=== PATIENT | male | born 1940 | race Caucasian/White ===

== ENCOUNTER 2016-02-20 13:27 | Inpatient (IN) | payer MEDICARE, MEDICAID ==
[2016-02-20] VITALS (31 sets, daily range): BP systolic 50–112; BP diastolic 30–82
[~2016-02-20] VITALS: Ht 162.6 cm; Wt 65.8 kg
[2016-02-20] MEDS ORDERED: Ipratropium 0.02% Inh Soln 2.5ml UD HHN ONE (13:30)
[2016-02-20] MEDS ORDERED: COLACE100 MG ORAL (13:39)
[2016-02-20] MEDS ORDERED: CIPRO500 MG PO (13:39)
[2016-02-20] MEDS ORDERED: FLOMAX0.4 MG ORAL (13:39)
[2016-02-20] MEDS ORDERED: ASPIRIN81 MG ORAL (13:39)
[2016-02-20] MEDS ORDERED: AMIODARONE HCL400 M1 ORAL (13:39)
[2016-02-20] MEDS ORDERED: ABILIFY10 MG ORAL (13:39)
[2016-02-20] MEDS ORDERED: ABILIFY2 MG ORAL (13:39)
[2016-02-20] MEDS ORDERED: HEPARIN SO5000 UNIT2 SUBQ (13:39)
[2016-02-20] MEDS ORDERED: ARANESP40 MCG/1 M SUBQ (13:39)
[2016-02-20] MEDS ORDERED: BISACODYL5 MG RECTAL (13:39)
[2016-02-20] MEDS ORDERED: Etomidate 40mg/20ml Inj IV ONE (13:45)
[2016-02-20] MEDS ORDERED: PRAVACHOL20 MG ORAL (13:45)
[2016-02-20] MEDS ORDERED: MELATONIN 3 MG1 EAC1 PO (13:45)
[2016-02-20] MEDS ORDERED: PROTONIX40 M2 PO (13:45)
[2016-02-20] MEDS ORDERED: TOPROL XL25 MG ORAL (13:45)
[2016-02-20] MEDS ORDERED: FUROSEMIDE80 M1 ORAL (13:45)
[2016-02-20] MEDS ORDERED: SENOKOT8.6 MG PO (13:45)
[2016-02-20] MEDS ORDERED: LIDOCAINE700 M1 TP (13:45)
[2016-02-20] MEDS ORDERED: TRAZODONE HCL150 MG ORAL (13:45)
[2016-02-20] MEDS ORDERED: HUMALOG100 UNIT/4 SUBQ (13:45)
[2016-02-20] MEDS ORDERED: NEPHRO-VITE RX1 EAC1 PO (13:45)
[2016-02-20] MEDS ORDERED: MIRALAX17 G2 ORAL (13:45)
[2016-02-20] MEDS ORDERED: NORCO 5-325 TA1 EAC1 ORAL (13:45)
[2016-02-20] MEDS ORDERED: LANOXIN125 MCG ORAL (13:45)
[2016-02-20 14:02] LABS: MEAN CORPUSCULAR HEMOGLOBIN 28.2 PG (27.0-31.0); MEAN CORPUSCULAR HGB CONC 28.9 G/DL (32.0-36.0); MEAN CORPUSCULAR VOLUME 98 FL (80-99); MEAN PLATELET VOLUME 6.9 FL (6.5-10.1); PLATELET COUNT 40 K/UL (150-450); RED BLOOD COUNT 3.96 M/UL (4.70-6.10); RED CELL DISTRIBUTION WIDTH 23.7 % (11.6-14.8); WHITE BLOOD COUNT 9.8 K/UL (4.8-10.8)
[2016-02-20 14:06] LABS: INR 1.3 (0.9-1.1); PROTHROMBIN TIME 13.7 SEC (9.30-11.50)
[2016-02-20 14:07] LABS: ALANINE AMINOTRANSFERASE 10 U/L (3-41); ALBUMIN/GLOBULIN RATIO 0.7 (1.0-2.7); ANION GAP 15 (5-15); ASPARTATE AMINO TRANSFERASE 28 U/L (5-40); CALCIUM 9.2 mg/dL (8.6-10.2); CARBON DIOXIDE 22 mEQ/L (20-30); CHLORIDE 100 mEQ/L (98-107); CREATININE 3.3 mg/dL (0.7-1.2); HEMOLYSIS 3; POTASSIUM 4.2 mEQ/L (3.4-4.9); SODIUM 137 mEQ/L (135-145); TOTAL PROTEIN 7.3 g/dL (6.6-8.7)
[2016-02-20 14:10] LABS: TROPONIN I < 0.30 ng/mL (<=0.30)
[2016-02-20] MEDS ORDERED: Levophed 4mg/4mL Inj IV ONE (14:13)
[2016-02-20 14:23] LABS: ANISOCYTOSIS 2+; BAND NEUTROPHILS % (MANUAL) 5 % (0-8); BASOPHILS % (MANUAL) 0 % (0-2); EOSINOPHILS % (MANUAL) 9 % (0-3); HYPOCHROMASIA 1+; LYMPHOCYTES % (MANUAL) 5 % (20-45); NEUTROPHILS % (MANUAL) 75 % (45-75); PLATELET ESTIMATE DECREASED; PLATELET MORPHOLOGY NORMAL; POLYCHROMASIA 1+; TOTAL CELLS COUNTED 100
[2016-02-20 14:24] LABS: MACROCYTES 1+
[2016-02-20 14:26] LABS: BURR CELLS 1+
[2016-02-20 14:30] LABS: BILIRUBIN,DIRECT 0.6 mg/dL (0.1-0.3)
--- NOTE | 2016-02-20 14:43 | Emergency Room Report ---
History of Present Illness General Chief Complaint: Dyspnea/Respdistress Source: Medical Record, EMS Present Illness HPI Patient sent from SNF for dyspnea. No treatment in the field. H/O dialysis, COPD, CHF/cardiomyopathy. Diabetic. Patient Full Code. Allergies: Coded Allergies: No Known Allergies (Unverified , 02/20/16) Patient History Limited by: medical condition Past Medical History: see triage record, old chart reviewed Past Surgical History: other - hip, knee Social History: Reports: smoking - prior Social History Narrative SNF Reviewed Nursing Documentation: PMH: Agreed, PSxH: Agreed Nursing Documentation-PMH Hx Cardiac Problems: Yes - CHF, CARDIOMYOPATHY Hx Hypertension: Yes Hx COPD: Yes Hx Dialysis: Yes Review of Systems All Other Systems: limited Physical Exam Vital Signs Date Time Temp Pulse Resp B/P Pulse Ox O2 Delivery O2 Flow Rate FiO2 02/20/16 13:20 98.2 78 24 106/62 90 Simple Mask 10.0 02/20/16 14:22 55 Sp02 EP Interpretation: reviewed, abnormal - low as interpreted by me General Appearance: Chronically Ill, Stupor Head: normocephalic Eyes: bilateral eye PERRL, bilateral eye lid inflammation, bilateral eye normal inspection ENT: moist mucus membranes Neck: supple Respiratory: respiratory distress, rales, rhonchi, wheezing, expiration, other - recent pacer L chest Cardiovascular #1: regular rate, rhythm, no murmur, JVD, edema - bilateral legs Cardiovascular #2: 2+ radial (R), 2+ femoral (R) Gastrointestinal: abnormal bowel sounds - decreased Genitourinary: normal inspection Musculoskeletal: swelling, other - DJD Neurologic: other - lethargic, moving all 4 Psychiatric: other - lethargy Skin: mottled Procedures Critical Care Time Critical Care Time Time: 45 min of bedside evaluation and treatment excludes procedures Procedures: CVP, intubation, EKG Reason for Critical Care: Hypotension, sepsis, metabolic acidosis, prevention of end organ injury, respiratory failure Course: the patient presented with AMS. I assessed ineffective TV and he was immediately intubated. His blood pressure was low and a CVP was started and pressors begun. He had evidence of increased venous pressures. Because of the increased pressures, there was bleeding from the EJ site. Pressure was applied and this was controlled - however, this took approximately 20 minutes at bedside. Antibiotics were initiated when CXR revealed a RLL infiltrate. Repeated evaluations were made as well as discussion with PMD. Vent settings were changed based on the ABG. Patient admitted to ICU. Consultations: PMD, RT, staff electronic warfare officer Alternative history: EMS Result: Patient was improved but critical Performed by: Dr. Mendoza Central Line Central Line : Consent: Emergent Central Line Lumen: triple Maximal Sterile Barrier Tech: yes cap, yes mask, yes sterile gown, yes sterile gloves, yes large sterile sheet, yes hand hygiene, yes chlorhexidine prep Central Line Postion: internal jugular (L), femoral (R) Complications: venous bleed with high pressures Central Line Post Position: sutured, good blood return, position confirmed w / CXR Attempts: Other - 2 Patient Tolerated: Well Complications: Other - venous bleed Progress Initially R femoral vein easily found, but due to some anatomic anomaly, unable to thread wire. EBL = 8 ml. R EJ cannulated with ease. Small hematoma, then after line inserted, bleeding from around line. Gelfoam and pressure dressing applied. Bleeding controlled. EBL = 15 ml. Intubation Intubation : Consent: Emergent Tube Size (cm): 7.5 Medications: Etomidate Breath Sounds after Intubation: equal Intubation Complications: no complications Post Intubation Xray: Yes Attempts: One Patient Tolerated: Well Complications: None Medical Decision Making Diagnostic Impression: Primary Impression: Respiratory failure Qualified Codes: J96.01 - Acute respiratory failure with hypoxia; J96.02 - Acute respiratory failure with hypercapnia Additional Impressions: Pneumonia Qualified Codes: J18.9 - Pneumonia, unspecified organism Pulmonary edema Qualified Codes: J81.0 - Acute pulmonary edema ESRD (end stage renal disease) on dialysis Hypotension Qualified Codes: I95.89 - Other hypotension Severe sepsis ER Course Dialysis patient presents with dyspnea. DDx: sepsis, COPD, pneumonia, pulmonary edema and possibly combination. Increasing lethargy and inadequate tidal volumes - patient intubated. Labs sent, EKG done. CXR after intubation and CVP. Patient complicated and critical. See critical care note. Elevated BNP and CHF on x-ray (with pneumonia). Unwise to give more fluids as central volume elevated. Antibiotics begun. Bleeding controlled at EJ/IJ site. INR prolonged and high central pressures. Discussed with Dr. Perez. Blood pressure better on Levophed. Adjust vent based on ABG. Improved but critical. Admitted to ICU. Laboratory Tests Test 02/20/16 13:37 White Blood Count 9.8 K/UL (4.8-10.8) Red Blood Count 3.96 M/UL (4.70-6.10) L Hemoglobin 11.2 G/DL (14.2-18.0) L Hematocrit 38.7 % (42.0-52.0) L Mean Corpuscular Volume 98 FL (80-99) Mean Corpuscular Hemoglobin 28.2 PG (27.0-31.0) Mean Corpuscular Hemoglobin Concent 28.9 G/DL (32.0-36.0) L Red Cell Distribution Width 23.7 % (11.6-14.8) H Platelet Count 40 K/UL (150-450) L Mean Platelet Volume 6.9 FL (6.5-10.1) Neutrophils (%) (Auto) % (45.0-75.0) Lymphocytes (%) (Auto) % (20.0-45.0) Monocytes (%) (Auto) % (1.0-10.0) Eosinophils (%) (Auto) % (0.0-3.0) Basophils (%) (Auto) % (0.0-2.0) Differential Total Cells Counted 100 Neutrophils % (Manual) 75 % (45-75) Lymphocytes % (Manual) 5 % (20-45) L Monocytes % (Manual) 6 % (1-10) Eosinophils % (Manual) 9 % (0-3) H Basophils % (Manual) 0 % (0-2) Band Neutrophils 5 % (0-8) Platelet Estimate Decreased L Platelet Morphology Normal Polychromasia 1+ Hypochromasia 1+ Anisocytosis 2+ Macrocytosis 1+ Christelle Cells 1+ Prothrombin Time 13.7 SEC (9.30-11.50) H Prothrombin Time INR 1.3 (0.9-1.1) H PTT 54 SEC (23-33) H Sodium Level 137 mEQ/L (135-145) Potassium Level 4.2 mEQ/L (3.4-4.9) Chloride Level 100 mEQ/L (98-107) Carbon Dioxide Level 22 mEQ/L (20-30) Anion Gap 15 (5-15) Blood Urea Nitrogen 27 mg/dL (7-23) H Creatinine 3.3 mg/dL (0.7-1.2) H Estimate Glomerular Filtration Rate mL/min (>60) Glucose Level 57 mg/dL (74-106) L Lactic Acid Level 1.30 mmol/L (0.66-2.22) Calcium Level 9.2 mg/dL (8.6-10.2) Total Bilirubin 1.3 mg/dL (0.0-1.2) H Direct Bilirubin 0.6 mg/dL (0.1-0.3) H Aspartate Amino Transferase (AST) 28 U/L (5-40) Alanine Aminotransferase (ALT) 10 U/L (3-41) Alkaline Phosphatase 164 U/L (40-129) H Total Creatine Kinase 23 U/L (38-174) L Troponin I < 0.30 ng/mL (<=0.30) Pro-B-Type Natriuretic Peptide 61717 pg/mL (0-125) H Total Protein 7.3 g/dL (6.6-8.7) Albumin 3.1 g/dL (3.5-5.2) L Globulin 4.2 g/dL Albumin/Globulin Ratio 0.7 (1.0-2.7) L EKG Diagnostic Results Rhythm: other - paced ST Segments: no acute changes Rhythm Strip Diag. Results EP Interpretation: yes Rhythm: no PVC's, no ectopy, other - paced Chest X-Ray Diagnostic Results EP Interpretation: Yes Findings: other - pneumonia, ET OK, IJ OK, vas cath, Number of Views: 1 Last Vital Signs Date Time Temp Pulse Resp B/P Pulse Ox O2 Delivery O2 Flow Rate FiO2 02/20/16 15:51 70 28 99 Mechanical Ventilator 45 02/20/16 15:50 112/82 02/20/16 14:00 98.0 02/20/16 13:20 10.0 Status: improved Disposition: ADMITTED INPATIENT Condition: Critical Referrals: JACKELIN JOSUE (PCP) Weston Mendoza M.D. Feb 20, 2016 14:43
[2016-02-20] MEDS ORDERED: Azithromycin 500 MG in NS 250 ML IVPB ONE (15:00)
[2016-02-20] MEDS: Albuterol ud Inhalation HHN SCH ×3 (15:02→17:00)
[2016-02-20] MEDS ORDERED: Vancomycin 1gm inj IVPB ONE (15:11)
[2016-02-20] MEDS ORDERED: Azithromycin Inj IV ONE (15:11)
[2016-02-20] MEDS ORDERED: Zosyn 3.375gm inj ONE (15:11)
[2016-02-20] MEDS ORDERED: Acetaminophen 650 MG SUPP RECTAL PRN ×2 (15:30)
[2016-02-20] MEDS ORDERED: Heparin 5000 units/ml inj SUBQ SCH (15:30)
[2016-02-20 16:28] LABS: APPEARANCE,URINE CLOUDY; KETONES,URINE 1+ (NEGATIVE); LEUKOCYTE ESTERASE ,URINE 3+ (NEGATIVE); NITRITE,URINE NEGATIVE (NEGATIVE); PH,URINE 6 (4.5-8.0); PROTEIN,URINE 4+ (NEGATIVE); UROBILINOGEN,URINE NORMAL MG/DL (0.0-1.0)
[2016-02-20 16:44] LABS: AMORPHOUS SEDIMENT,UR FEW /LPF; BACTERIA,URINE MANY /HPF; ICTOTEST NEGATIVE
[2016-02-20] MEDS ORDERED: DuoNeb 0.5-3(2.5)mg/3ml neb HHN SCH ×2 (17:00→18:00)
[2016-02-20] MEDS ORDERED: LORazepam Inj 2mg/ml 1ml IV PRN (17:30)
[2016-02-20] MEDS ORDERED: Haloperidol 5mg/ml Inj IM PRN (17:30)
[2016-02-20] MEDS: Norepinephrine Bitartrate 8 MG in D5W 500ml 500 ML IV SCH (18:04)
--- NOTE | 2016-02-20 19:26 | History and Physical ---
History of Present Illness General Date patient seen: Feb 20, 2016 Time patient seen: 17:30 Reason for Hospitalization: Dyspnea/Respdistress Present Illness HPI Pt is a 75 yo [place] M with PMH of ischemic CM (EF 15%), CAD, a fib, HTN, COPD, DM 2 , HLD, ESRD on HD 4x/w, PVD and TTP sent to ED for hypotension with SBP of 80s and acute de sat. In ED, SBP in 50s and pt started on pressors, and in hypoxic resp failure, hence intubated and tx to ICU. Allergies: Coded Allergies: No Known Allergies (Unverified , 02/20/16) Medication History Scheduled Amiodarone Hcl* (Amiodarone Hcl*), 200 MG ORAL BEDTIME, (Reported) Aripiprazole* (Abilify*), 2 MG ORAL BEDTIME, (Reported) Aripiprazole* (Abilify*), 10 MG ORAL DAILY, (Reported) Aspirin* (Aspirin*), 81 MG ORAL DAILY, (Reported) Bisacodyl* (Dulcolax*), 5 MG RECTAL DAILY, (Reported) Ciprofloxacin* (Cipro*), 250 MG PO BID, (Reported) Darbepoetin Eddie In Polysorbat (Aranesp), 40 MCG SUBQ ONCE A WEEK, (Reported) Digoxin* (Lanoxin*), 125 MCG ORAL DAILY, (Reported) Docusate Sodium* (Colace*), 100 MG ORAL DAILY, (Reported) Furosemide* (Lasix*), 80 MG ORAL DAILY, (Reported) Heparin Sod (Porcine) (Heparin Sodium*), 5,000 UNITS SUBQ EVERY 12 HOURS, ( Reported) Lidocaine (Lidocaine), 700 MG TP EVERY 12 HOURS, (Reported) Metoprolol Succinate* (Toprol Xl*), 25 MG ORAL DAILY, (Reported) Pantoprazole Sodium (Protonix), 40 MG PO DAILY, (Reported) Polyethylene Glycol 3350* (Miralax*), 17 GM ORAL DAILY, (Reported) Pravastatin Sod* (Pravachol*), 10 MG ORAL BEDTIME, (Reported) Tamsulosin HCl (Flomax), 0.4 MG ORAL DAILY, (Reported) Trazodone* (Trazodone*), 25 MG ORAL BEDTIME, (Reported) Vit B Cmplx 3/Fa/Vit C/Biotin (Nephro-Ang Rx Tablet), 1 EACH PO DAILY, ( Reported) Scheduled PRN Hydrocodone Bit/Acetaminophen 5-325* ([place] 5-325 Tablet*), 1 TAB ORAL Q4H PRN for For Pain, (Reported) Miscellaneous Medications Insulin Lispro (Humalog), 0 SUBQ, (Reported) Melatonin/Pyridoxine HCl (B6) (Melatonin 3 mg Tablet), 1 EACH PO, (Reported) Sennosides (Senokot), 8.6 MG PO, (Reported) Patient History Healthcare decision maker Resuscitation status Full Code Advanced Directive on File No Past Medical/Surgical History Past Medical/Surgical History: (1) CAD (coronary artery disease) (2) Ischemic cardiomyopathy (3) ESRD (end stage renal disease) on dialysis (4) Encephalopathy (5) Thrombocytopenia (6) PVD (peripheral vascular disease) (7) HLD (hyperlipidemia) (8) DM type 2 (diabetes mellitus, type 2) (9) COPD (chronic obstructive pulmonary disease) (10) HTN (hypertension) (11) A-fib (12) Presence of biventricular AICD Family History Family History: Patient reports no known family medical history. Social History Social History: (1) No significant social history Review of Systems All Other Systems: negative except mentioned in HPI - pt unable to perform ros 2/2 intubation Physical Exam General Appearance: no apparent distress, alert, lethargic - but arousable; stating he wants the breathing tube out, cachetic Lines, tubes and drains: central line - R EJ, dialysis access - R cath HEENT: normocephalic, atraumatic, anicteric, PERRL, EOMI, no JVD, other - dry mm Neck: non-tender, supple Respiratory/Chest: expiratory wheezing, on vent Cardiovascular/Chest: normal peripheral pulses, normal rate, regular rhythm Abdomen: normal bowel sounds, non tender, soft, no mass Genitourinary/Rectal: leon Extremities: non-tender, normal inspection Skin Exam: warm/dry, other - ecchymoses of LLQ Neurologic: brim plater II-XII grossly normal, no motor/sensory deficits, alert, responsive Musculoskeletal: normal muscle bulk Last 24 Hour Vital Signs Date Time Temp Pulse Resp B/P Pulse Ox O2 Delivery O2 Flow Rate FiO2 02/20/16 19:00 71 20 90/56 100 Mechanical Ventilator 45 02/20/16 18:50 70 26 40 02/20/16 18:49 70 26 100 Mechanical Ventilator 40 02/20/16 18:49 40 02/20/16 18:45 70 20 89/51 100 Mechanical Ventilator 45 02/20/16 18:30 70 22 83/51 98 Mechanical Ventilator 45 17 18:15 70 21 88/52 98 Mechanical Ventilator 45 02/20/16 18:04 92/54 02/20/16 18:00 72 20 84/52 100 Mechanical Ventilator 45 02/20/16 17:47 70 21 100 Mechanical Ventilator 40 02/20/16 17:45 71 25 99 Mechanical Ventilator 40 02/20/16 17:45 72 22 84/52 100 Mechanical Ventilator 45 02/20/16 17:45 71 25 99 Mechanical Ventilator 40 02/20/16 17:30 71 20 100/58 100 Mechanical Ventilator 45 02/20/16 17:15 71 25 40 02/20/16 17:15 70 20 98/61 98 Mechanical Ventilator 45 02/20/16 17:00 71 20 97/60 98 Mechanical Ventilator 45 02/20/16 16:30 45 02/20/16 16:30 82 02/20/16 16:30 97.8 71 20 102/60 98 Mechanical Ventilator 45 02/20/16 16:15 70 22 96/61 98 Mechanical Ventilator 45 02/20/16 15:51 70 28 99 Mechanical Ventilator 45 02/20/16 15:50 70 20 100 Mechanical Ventilator 02/20/16 15:50 70 26 112/82 97 Mechanical Ventilator 45 02/20/16 15:50 45 02/20/16 15:48 70 21 100 Mechanical Ventilator 55 02/20/16 15:19 62/21 02/20/16 15:15 70 28 45 02/20/16 14:22 21 55 02/20/16 14:21 70 16 52/30 97 Mechanical Ventilator 02/20/16 14:00 98.0 66 16 50/40 98 Mechanical Ventilator 02/20/16 13:35 62 10 02/20/16 13:20 98.2 78 24 106/62 90 Simple Mask 10.0 Laboratory Tests Test 02/20/16 13:37 02/20/16 13:45 02/20/16 15:30 White Blood Count 9.8 K/UL (4.8-10.8) Red Blood Count 3.96 M/UL (4.70-6.10) L Hemoglobin 11.2 G/DL (14.2-18.0) L Hematocrit 38.7 % (42.0-52.0) L Mean Corpuscular Volume 98 FL (80-99) Mean Corpuscular Hemoglobin 28.2 PG (27.0-31.0) Mean Corpuscular Hemoglobin Concent 28.9 G/DL (32.0-36.0) L Red Cell Distribution Width 23.7 % (11.6-14.8) H Platelet Count 40 K/UL (150-450) L Mean Platelet Volume 6.9 FL (6.5-10.1) Neutrophils (%) (Auto) % (45.0-75.0) Lymphocytes (%) (Auto) % (20.0-45.0) Monocytes (%) (Auto) % (1.0-10.0) Eosinophils (%) (Auto) % (0.0-3.0) Basophils (%) (Auto) % (0.0-2.0) Differential Total Cells Counted 100 Neutrophils % (Manual) 75 % (45-75) Lymphocytes % (Manual) 5 % (20-45) L Monocytes % (Manual) 6 % (1-10) Eosinophils % (Manual) 9 % (0-3) H Basophils % (Manual) 0 % (0-2) Band Neutrophils 5 % (0-8) Platelet Estimate Decreased L Platelet Morphology Normal Polychromasia 1+ Hypochromasia 1+ Anisocytosis 2+ Macrocytosis 1+ Benedict Cells 1+ Prothrombin Time 13.7 SEC (9.30-11.50) H Prothromb Time International Ratio 1.3 (0.9-1.1) H Activated Partial Thromboplast Time 54 SEC (23-33) H Sodium Level 137 mEQ/L (135-145) Potassium Level 4.2 mEQ/L (3.4-4.9) Chloride Level 100 mEQ/L (98-107) Carbon Dioxide Level 22 mEQ/L (20-30) Anion Gap 15 (5-15) Blood Urea Nitrogen 27 mg/dL (7-23) H Creatinine 3.3 mg/dL (0.7-1.2) H Estimat Glomerular Filtration Rate mL/min (>60) Glucose Level 57 mg/dL (74-106) L Lactic Acid Level 1.30 mmol/L (0.66-2.22) Calcium Level 9.2 mg/dL (8.6-10.2) Total Bilirubin 1.3 mg/dL (0.0-1.2) H Direct Bilirubin 0.6 mg/dL (0.1-0.3) H Aspartate Amino Transf (AST/SGOT) 28 U/L (5-40) Alanine Aminotransferase (ALT/SGPT) 10 U/L (3-41) Alkaline Phosphatase 164 U/L (40-129) H Total Creatine Kinase 23 U/L (38-174) L Troponin I < 0.30 ng/mL (<=0.30) Pro-B-Type Natriuretic Peptide 89446 pg/mL (0-125) H Total Protein 7.3 g/dL (6.6-8.7) Albumin 3.1 g/dL (3.5-5.2) L Globulin 4.2 g/dL Albumin/Globulin Ratio 0.7 (1.0-2.7) L D-Dimer 2599 ng/mL (<500) H Digoxin Level 3.3 ng/mL (0.5-2.0) *H Urine Color Brown Urine Appearance Cloudy Urine pH 6 (4.5-8.0) Urine Specific [place] 1.015 (1.005-1.035) Urine Protein 4+ (NEGATIVE) H Urine Glucose (UA) Negative (NEGATIVE) Urine Ketones 1+ (NEGATIVE) H Urine Occult Blood 5+ (NEGATIVE) H Urine Nitrite Negative (NEGATIVE) Urine Bilirubin 1+ (NEGATIVE) H Urine Ictotest Negative Urine Urobilinogen Normal MG/DL (0.0-1.0) Urine Leukocyte Esterase 3+ (NEGATIVE) H Urine RBC 5-10 /HPF (0 - 0) H Urine WBC 10-15 /HPF (0 - 0) H Urine Squamous Epithelial Cells None /LPF (NONE/OCC) Urine Amorphous Sediment Few /LPF (NONE) H Urine Bacteria Many /HPF (NONE) H Height (Feet): 5 Height (Inches): 4.00 Weight (Pounds): 145 Medications Current Medications Medications (Trade) Dose Ordered Sig/Med Route PRN Reason Start Time Stop Time Status Last Admin Dose Admin Acetaminophen 650 mg 650 mg Q4H PRN RECTAL Mild Pain (Scale 1-3)/FEVER 02/20/16 15:30 03/21/16 15:29 Albumin Human (Albumisol) 100 ml @ 200 mls/hr PRN PRN IV sbp<90 during hd 02/21/16 17:45 03/22/16 17:44 Albuterol/ Ipratropium (DuoNeb 0.5-3(2.5)mg/3ml) 3 ml EVERY 4 HOURS HHN 02/20/16 17:00 02/25/16 16:59 02/20/16 17:15 Albuterol/ Ipratropium (DuoNeb 0.5-3(2.5)mg/3ml) 3 ml Q4HR N 02/20/16 18:00 02/25/16 17:59 02/20/16 18:48 Amiodarone HCl (Cordarone) 200 mg BEDTIME ORAL 02/20/16 21:00 03/21/16 20:59 Aripiprazole (Abilify) 2 mg BEDTIME ORAL 02/20/16 21:00 03/21/16 20:59 Aspirin (ASA) 81 mg DAILY ORAL 02/21/16 09:00 03/22/16 08:59 Azithromycin 500 mg/Sodium Chloride 250 ml @ 250 mls/hr Q24H IV 02/21/16 15:00 02/27/16 14:59 Dextrose (Dextrose 50%) STAT PRN IV Hypoglycemia 02/20/16 17:15 03/21/16 17:14 Digoxin (Lanoxin) 0.125 mg DAILY ORAL 02/21/16 09:00 03/22/16 08:59 Docusate Sodium (Colace) 100 mg DAILY ORAL 02/21/16 09:00 03/22/16 08:59 Haloperidol Lactate 2 mg 2 mg Q6H PRN IM Agitation 02/20/16 17:30 03/21/16 17:29 Heparin Sodium (Porcine) (Heparin Sod 1000 units/ml 10ml) 2,000 unit ONCE IV 02/21/16 18:00 02/26/16 17:59 Lidocaine (Lidoderm 5% PATCH) 1 patch EVERY 12 HOURS TDERMAL 02/20/16 21:00 03/21/16 20:59 Lorazepam (Ativan 2mg/ml 1ml) 0.5 mg Q4H PRN IV For Anxiety 02/20/16 17:30 02/27/16 17:29 Norepinephrine Bitartrate/ Dextrose (Levophed/D5W 500ml) 508 ml @ 0 mls/hr Q24H IV 02/20/16 17:00 03/21/16 16:59 02/20/16 18:04 Piperacillin Sod/ Tazobactam Sod 3.375 gm/Sodium Chloride 100 ml @ 25 mls/hr Q12H IVPB 02/21/16 15:00 02/28/16 14:59 Polyethylene Glycol (Miralax) 17 gm DAILY ORAL 02/21/16 09:00 03/22/16 08:59 Sennosides (Senokot) 8.6 mg DAILY ORAL 02/21/16 09:00 03/22/16 08:59 Trazodone HCl (Desyrel) 25 mg BEDTIME ORAL 02/20/16 21:00 03/21/16 20:59 Vancomycin HCl (Vanco rx to dose) 1 ea DAILY PRN MISC Per rx protocol 02/20/16 17:30 03/21/16 17:29 Assessment/Plan Problem List: (1) Pulmonary edema ICD Codes: J81.1 - Chronic pulmonary edema SNOMED: 14492075 (2) Hypotension ICD Codes: I95.9 - Hypotension, unspecified SNOMED: 42680651 (3) Pneumonia ICD Codes: J18.9 - Pneumonia, unspecified organism SNOMED: 865029343 (4) ESRD (end stage renal disease) on dialysis ICD Codes: N18.6 - End stage renal disease; Z99.2 - Dependence on renal dialysis SNOMED: 847899489 (5) Respiratory failure ICD Codes: J96.90 - Respiratory failure, unspecified, unspecified whether with hypoxia or hypercapnia SNOMED: 165502756 (6) Hypoxia ICD Codes: R09.02 - Hypoxemia SNOMED: 77396599, 482457280 (7) CAD (coronary artery disease) ICD Codes: I25.10 - Atherosclerotic heart disease of [place] coronary artery without angina pectoris SNOMED: 90817044 (8) Ischemic cardiomyopathy ICD Codes: I25.5 - Ischemic cardiomyopathy SNOMED: 511461098 (9) COPD (chronic obstructive pulmonary disease) ICD Codes: J44.9 - Chronic obstructive pulmonary disease, unspecified SNOMED: 14898642 (10) Thrombocytopenia ICD Codes: D69.6 - Thrombocytopenia, unspecified SNOMED: 688384540 (11) Encephalopathy ICD Codes: G93.40 - Encephalopathy, unspecified SNOMED: 79167014, 732072667 (12) PVD (peripheral vascular disease) ICD Codes: I73.9 - Peripheral vascular disease, unspecified SNOMED: 330877880 (13) A-fib ICD Codes: I48.91 - Unspecified atrial fibrillation SNOMED: 31215864 (14) HTN (hypertension) ICD Codes: I10 - Essential (primary) hypertension SNOMED: 64720569 (15) DM type 2 (diabetes mellitus, type 2) ICD Codes: E11.9 - Type 2 diabetes mellitus without complications SNOMED: 71248563 (16) HLD (hyperlipidemia) ICD Codes: E78.5 - Hyperlipidemia, unspecified SNOMED: 48846934 (17) Septic shock ICD Codes: A41.9 - Sepsis, unspecified organism; R65.21 - Severe sepsis with septic shock SNOMED: 35304276 Status: progressing Assessment/Plan Pt admitted to ICU intubated for ventilatory support for acute hypoxic respiratory failure. Dr. Marin of pulm conslted cont atc duo nebs Zosyn, vanc and azithromycin, HCAP v CAP Dr. Mcnamara of Nephrology c/s'd; resume HD tomorrow cont home meds hold eliquis and pharm dvt ppx; scd only f/u DIC panel Bran Gomez M.D. Feb 20, 2016 19:26
--- NOTE | 2016-02-20 20:53 | Pulmonolgy Critical Care Note ---
Critical Care - Asmt/Plan Problems: (1) Severe sepsis (2) Hypotension (3) Pulmonary edema (4) Pneumonia (5) ESRD (end stage renal disease) on dialysis (6) DM type 2 (diabetes mellitus, type 2) (7) HTN (hypertension) (8) HLD (hyperlipidemia) (9) Hypoxia (10) A-fib (11) PVD (peripheral vascular disease) (12) Encephalopathy (13) Thrombocytopenia (14) COPD (chronic obstructive pulmonary disease) (15) Ischemic cardiomyopathy (16) CAD (coronary artery disease) Respiratory: monitor respiratory rate, adjust FIO2 - Titrate down to keep SaO2 ~ 90%, CXR, weaning trial - once hemodynamically stable, other - Optimize pulmonary hygiene/mobilzie as tolerated, RTC and PRN DUOnebs Cardiac: continue pressors - titrate down to MAP > 60, continue to monitor HR/ BP, other - F/U repeat ECG and troponin Renal: F/U I&O, check electrolytes, other - HD in am with UF as tolerated Infectious Disease: check cultures - F/U BCx x 2 and sputum Cx, continue antibiotics - Vanco/Zosyn/Azithro (D1) Gastrointestinal: other - Dietary evaluation for TF's Endocrine: continue sliding scale insulin Hematologic: monitor H/H, other - F/U duplex bLE, if negative place SCD's, consider heme eval for thrombocytopenia. 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 Discussed with: nurses, family member, other - Review of [facility] records Critical Care - Objective Last 24 Hour Vital Signs Date Time Temp Pulse Resp B/P Pulse Ox O2 Delivery O2 Flow Rate FiO2 02/20/16 20:15 71 20 90/51 98 Mechanical Ventilator 45 02/20/16 20:00 97.4 70 21 91/56 100 Mechanical Ventilator 45 02/20/16 19:45 71 21 92/54 100 Mechanical Ventilator 45 02/20/16 19:30 71 22 98/55 100 Mechanical Ventilator 45 02/20/16 19:15 70 20 94/56 97 Mechanical Ventilator 45 02/20/16 19:00 71 20 90/56 100 Mechanical Ventilator 45 02/20/16 18:50 70 26 40 02/20/16 18:49 70 26 100 Mechanical Ventilator 40 02/20/16 18:49 40 02/20/16 18:45 70 20 89/51 100 Mechanical Ventilator 45 02/20/16 18:30 70 22 83/51 98 Mechanical Ventilator 45 02/20/16 18:15 70 21 88/52 98 Mechanical Ventilator 45 02/20/16 18:04 92/54 02/20/16 18:00 72 20 84/52 100 Mechanical Ventilator 45 02/20/16 17:47 70 21 100 Mechanical Ventilator 40 02/20/16 17:45 71 25 99 Mechanical Ventilator 40 02/20/16 17:45 72 22 84/52 100 Mechanical Ventilator 45 02/20/16 17:45 71 25 99 Mechanical Ventilator 40 02/20/16 17:30 71 20 100/58 100 Mechanical Ventilator 45 02/20/16 17:15 71 25 40 02/20/16 17:15 70 20 98/61 98 Mechanical Ventilator 45 02/20/16 17:00 71 20 97/60 98 Mechanical Ventilator 45 02/20/16 16:30 45 02/20/16 16:30 82 02/20/16 16:30 97.8 71 20 102/60 98 Mechanical Ventilator 45 02/20/16 16:15 70 22 96/61 98 Mechanical Ventilator 45 02/20/16 15:51 70 28 99 Mechanical Ventilator 45 02/20/16 15:50 70 20 100 Mechanical Ventilator 02/20/16 15:50 70 26 112/82 97 Mechanical Ventilator 45 02/20/16 15:50 45 02/20/16 15:48 70 21 100 Mechanical Ventilator 55 02/20/16 15:19 62/21 02/20/16 15:15 70 28 45 02/20/16 14:22 21 55 02/20/16 14:21 70 16 52/30 97 Mechanical Ventilator 02/20/16 14:00 98.0 66 16 50/40 98 Mechanical Ventilator 02/20/16 13:35 62 10 02/20/16 13:20 98.2 78 24 106/62 90 Simple Mask 10.0 Status: sedated, other - intubated, elderly male Condition: critical HEENT: atraumatic, normocephalic Neck: other - JVP to AOM, R IJ CVC with oozing Lungs: rales - at bases, other - R CW tunneled cath Heart: HR/BP unstable - on 3 mcg NE Abdomen: soft, non-tender, active bowel sounds Extremities: edema - 3+ bLE Decubiti: location - sacral , stage - 2 Objective: 02/05/16 CT CAP @ [facility]: 1. Left anterior chest wall hematoma, partially obscured by metallic artifact from adjacent pacemaker. 2. Mild to moderate cardiomegaly with moderate right pleural effusion and pulmonary vascular congestion. 3. Mild splenomegaly with a couple of low-density lesions in the spleen the largest likely a cyst. 4. Gallstones. 5. Small ascites and diffuse anasarca. 6. 13 mm hyperdense lesion appears to washout on the delayed images and is suspicious for a small renal cell carcinoma. This was slightly smaller at 8 mm on the study of 07/06/2011 and more hypodense and therefore appears to be enhancing. 7. 3 cm infrarenal abdominal aortic aneurysm as well as left iliac artery aneurysmal dilatation. 12/15/15 TTE @ [facility]: Conclusions: 1. VERY SEVERE left ventricular systolic dysfunction. LV Ejection Fraction is 14 %. Severe diastolic dysfunction. Tissue Doppler/Mitral Doppler indices are consistent with restrictive physiology with markedly elevated left atrial pressures at rest. 2. Total wall motion score is 2.47. There is dyskinesis of the apical cap. There is dyskinesis of the apical septal wall. There is akinesis of the mid to apical inferior wall. There is akinesis of the mid anteroseptal to septal wall. The remaining left ventricular segments demonstrate hypokinesis. 3. Moderately depressed right ventricular systolic function. 4. There is moderate tricuspid regurgitation. 5. The inferior vena cava demonstrates no inspiratory collapse, consistent with significantly elevated right atrial pressure (>15 mmHg). 6. Estimated PA Pressure is 63.0 mmHg. PA systolic pressure is consistent with severe pulmonary hypertension. Accucheck: 92 Blood Sugars: BS controlled Critical Care - Subjective ROS Limited/Unobtainable: Yes ICU Day: 1 Intubation Day: 1 Interval Events: 75 M NHR h/o ESRD on HD, CHF S/P AICD, COPD, thrombocytopenia BIB EMS for SNF with RD, hypotensive and started on pressors, CXR with ? RLL infiltrate, PVC and exam with elevated filling pressure and CHF. Patient intubated in ED, started on BSAbx, CVC placed and transferred to ICU. He is on NE 3 mcg and afebrile, he is anuric, he has thin white secretions, awake and follows commands. HD has been ordered for the am. [facility] records reviewed. Condition: critical IV Access: central - R IJ CVC and R CW tunneled cath for HD EKG Rhythm: V-Paced FI02: 45 Vent Support Breath Rate: 20 Vent Support Mode: AC Vent Tidal Volume: 550 Sputum Amount: Moderate PEEP: 5.0 PIP: 27 Secretions: THIN WHITE Fluids: N/A Drips: NE @ 3 mcg/min Subjective: Unable to provide any history CXR: Per report ? RLL infiltrate and PVC ET-Tube: 7.5 ET Position: 24 Labs: Laboratory Tests Test 02/20/16 13:37 02/20/16 13:45 02/20/16 15:30 White Blood Count 9.8 K/UL (4.8-10.8) Red Blood Count 3.96 M/UL (4.70-6.10) L Hemoglobin 11.2 G/DL (14.2-18.0) L Hematocrit 38.7 % (42.0-52.0) L Mean Corpuscular Volume 98 FL (80-99) Mean Corpuscular Hemoglobin 28.2 PG (27.0-31.0) Mean Corpuscular Hemoglobin Concent 28.9 G/DL (32.0-36.0) L Red Cell Distribution Width 23.7 % (11.6-14.8) H Platelet Count 40 K/UL (150-450) L Mean Platelet Volume 6.9 FL (6.5-10.1) Neutrophils (%) (Auto) % (45.0-75.0) Lymphocytes (%) (Auto) % (20.0-45.0) Monocytes (%) (Auto) % (1.0-10.0) Eosinophils (%) (Auto) % (0.0-3.0) Basophils (%) (Auto) % (0.0-2.0) Differential Total Cells Counted 100 Neutrophils % (Manual) 75 % (45-75) Lymphocytes % (Manual) 5 % (20-45) L Monocytes % (Manual) 6 % (1-10) Eosinophils % (Manual) 9 % (0-3) H Basophils % (Manual) 0 % (0-2) Band Neutrophils 5 % (0-8) Platelet Estimate Decreased L Platelet Morphology Normal Polychromasia 1+ Hypochromasia 1+ Anisocytosis 2+ Macrocytosis 1+ Christelle Cells 1+ Prothrombin Time 13.7 SEC (9.30-11.50) H Prothromb Time International Ratio 1.3 (0.9-1.1) H Activated Partial Thromboplast Time 54 SEC (23-33) H Sodium Level 137 mEQ/L (135-145) Potassium Level 4.2 mEQ/L (3.4-4.9) Chloride Level 100 mEQ/L (98-107) Carbon Dioxide Level 22 mEQ/L (20-30) Anion Gap 15 (5-15) Blood Urea Nitrogen 27 mg/dL (7-23) H Creatinine 3.3 mg/dL (0.7-1.2) H Estimat Glomerular Filtration Rate mL/min (>60) Glucose Level 57 mg/dL (74-106) L Lactic Acid Level 1.30 mmol/L (0.66-2.22) Calcium Level 9.2 mg/dL (8.6-10.2) Total Bilirubin 1.3 mg/dL (0.0-1.2) H Direct Bilirubin 0.6 mg/dL (0.1-0.3) H Aspartate Amino Transf (AST/SGOT) 28 U/L (5-40) Alanine Aminotransferase (ALT/SGPT) 10 U/L (3-41) Alkaline Phosphatase 164 U/L (40-129) H Total Creatine Kinase 23 U/L (38-174) L Troponin I < 0.30 ng/mL (<=0.30) Pro-B-Type Natriuretic Peptide 55137 pg/mL (0-125) H Total Protein 7.3 g/dL (6.6-8.7) Albumin 3.1 g/dL (3.5-5.2) L Globulin 4.2 g/dL Albumin/Globulin Ratio 0.7 (1.0-2.7) L D-Dimer 2599 ng/mL (<500) H Digoxin Level 3.3 ng/mL (0.5-2.0) *H Urine Color Brown Urine Appearance Cloudy Urine pH 6 (4.5-8.0) Urine Specific [place] 1.015 (1.005-1.035) Urine Protein 4+ (NEGATIVE) H Urine Glucose (UA) Negative (NEGATIVE) Urine Ketones 1+ (NEGATIVE) H Urine Occult Blood 5+ (NEGATIVE) H Urine Nitrite Negative (NEGATIVE) Urine Bilirubin 1+ (NEGATIVE) H Urine Ictotest Negative Urine Urobilinogen Normal MG/DL (0.0-1.0) Urine Leukocyte Esterase 3+ (NEGATIVE) H Urine RBC 5-10 /HPF (0 - 0) H Urine WBC 10-15 /HPF (0 - 0) H Urine Squamous Epithelial Cells None /LPF (NONE/OCC) Urine Amorphous Sediment Few /LPF (NONE) H Urine Bacteria Many /HPF (NONE) H EMMETT MAURER M.D. Feb 20, 2016 20:53
[2016-02-20] MEDS ORDERED: NovoLOG Insulin Flexpen SUBQ SCH (21:00)
[2016-02-20] MEDS ORDERED: ARIPiprazole 2mg tab ORAL SCH (21:00)
[2016-02-20] MEDS: TraZODone HCl 25 mg tablet ORAL SCH (21:09)
[2016-02-20] MEDS: Amiodarone 200mg tab ORAL SCH (21:10)
[2016-02-20] MEDS: Pantoprazole Inj IVP SCH (21:10)
[2016-02-20] MEDS: DuoNeb 0.5-3(2.5)mg/3ml neb HHN SCH (23:24)
[2016-02-21] VITALS (96 sets, daily range): BP systolic 68–126; BP diastolic 29–78
--- NOTE | 2016-02-21 00:08 | Consultation ---
DATE OF CONSULTATION: 02/20/2016 NEPHROLOGY CONSULTATION REFERRING PHYSICIAN: Charlene Barnard M.D. REASON FOR CONSULTATION: End-stage renal disease, shock. HISTORY OF PRESENT ILLNESS: The patient has end-stage renal disease, on dialysis, cardiomyopathy with an ejection fraction about 15%, atrial fibrillation, COPD and cirrhosis. He was brought into the emergency room in respiratory distress and was intubated. The patient has been seen by myself multiple times in the past. He is now hypotensive on Levophed and intubated, but awake. He was seen in the emergency room and thought to have pneumonia and possible CHF and was started on treatment for sepsis. He is also on Levophed. PAST SURGICAL HISTORY: A biventricular pacemaker, right hip fracture, knee surgery, AICD, bilateral hip replacement, total knee replacement on the right, venous bypass of the right leg and a plastic surgery. MEDICATIONS: From the F are on the chart and were reviewed. ALLERGIES: Glipizide. HABITS: He is a former heavy smoker and a moderate alcohol drinker. REVIEW OF SYSTEMS: The patient is unable to give system review at this time. PHYSICAL EXAMINATION: GENERAL: The patient is lying in bed in the ICU. VITAL SIGNS: He has a pulse is 70, respirations 28, and pulse oximetry 99%, he is on the ventilator, blood pressure 62/21 and repeat 112/82. HEENT: He is orally intubated. Oral mucosa is moist. NECK: No adenopathy. He has a dressing from an IJ catheter. CHEST: He has a dialysis catheter in place. LUNGS: Distant breath sounds. I do not hear any rales or rhonchi. HEART: Rhythm is regular. I hear no murmur. ABDOMEN: Soft. I am unable to feel liver or spleen. There is questionable minimal ascites. EXTREMITIES: There is 1+ edema. There are old surgical scars from orthopedic surgery. NEUROLOGIC: The patient is awake and alert. Moving around all extremities. PERTINENT LABORATORY AND DIAGNOSTIC DATA: He has white count 9.8 and hemoglobin 11.2. Sodium 137, potassium 4.2, BUN 27, creatinine 3.3, and glucose 57. BNP 3926. Albumin was 3.1. Chest x-ray is not on the chart, but reportedly shows pneumonia and congestive heart failure. IMPRESSION: 1. End-stage renal disease. 2. Shock, likely due to cardiomyopathy and possible sepsis and septic shock. Source of sepsis could be urine or lung, most likely there also could be spontaneous bacterial peritonitis or other causes. 3. Chronic obstructive pulmonary disease. 4. History of cirrhosis. 5. Peripheral vascular disease. 6. History of mitral regurgitation. 7. History of prior gastrointestinal bleeding. 8. Ischemic cardiomyopathy. 9. Methicillin-resistant Staphylococcus aureus colonized. PLAN: The patient will be watched closely in view of his comorbidities. At this time, he does not need dialysis and we will try to stabilize his blood pressure, clinical status prior to initiating hemodialysis. His condition is gravely ill. His records from [facility] are reviewed and attached to the chart. Thank you so much for allowing me to participate in the care of this patient. Edwin Mcnamara M.D. DR: JULIANA JOB#: [id number] CC:
[2016-02-21 02:54] LABS: ABG PCO2 45.4 mmHg (35.0-45.0)
[2016-02-21 02:55] LABS: ABG ALLEN TEST POSITIVE
[2016-02-21] MEDS: DuoNeb 0.5-3(2.5)mg/3ml neb HHN SCH ×6 (03:00→22:53)
[2016-02-21 05:57] LABS: MEAN CORPUSCULAR HEMOGLOBIN 28.6 PG (27.0-31.0); MEAN CORPUSCULAR HGB CONC 30.2 G/DL (32.0-36.0); MEAN CORPUSCULAR VOLUME 95 FL (80-99); MEAN PLATELET VOLUME 5.1 FL (6.5-10.1); PLATELET COUNT 38 K/UL (150-450); RED BLOOD COUNT 3.71 M/UL (4.70-6.10); RED CELL DISTRIBUTION WIDTH 23.6 % (11.6-14.8); WHITE BLOOD COUNT 11.4 K/UL (4.8-10.8)
[2016-02-21] MEDS: NovoLOG Insulin Flexpen SUBQ SCH ×4 (06:00→17:46)
[2016-02-21 06:11] LABS: INR 1.5 (0.9-1.1); PROTHROMBIN TIME 15.1 SEC (9.30-11.50)
[2016-02-21 06:18] LABS: ANION GAP 18 (5-15); CALCIUM 8.7 mg/dL (8.6-10.2); CARBON DIOXIDE 19 mEQ/L (20-30); CHLORIDE 97 mEQ/L (98-107); CREATININE 3.5 mg/dL (0.7-1.2); HEMOLYSIS 8; POTASSIUM 3.9 mEQ/L (3.4-4.9); SODIUM 134 mEQ/L (135-145)
[2016-02-21 06:27] LABS: TROPONIN I < 0.30 ng/mL (<=0.30)
[2016-02-21 08:42] LABS: ANISOCYTOSIS 2+; BAND NEUTROPHILS % (MANUAL) 0 % (0-8); BASOPHILS % (MANUAL) 0 % (0-2); EOSINOPHILS % (MANUAL) 12 % (0-3); HYPOCHROMASIA 1+; LYMPHOCYTES % (MANUAL) 6 % (20-45); NEUTROPHILS % (MANUAL) 77 % (45-75); PLATELET ESTIMATE DECREASED; PLATELET MORPHOLOGY NORMAL; TOTAL CELLS COUNTED 100
[2016-02-21 08:43] LABS: POLYCHROMASIA OCCASIONAL
[2016-02-21] MEDS: Aspirin Baby 81mg ORAL SCH (09:00)
[2016-02-21] MEDS ORDERED: Digoxin 0.125mg tab ORAL SCH (09:00)
[2016-02-21] MEDS: Norepinephrine Bitartrate 8 MG in D5W 500ml 500 ML IV SCH ×2 (09:17→17:51)
[2016-02-21 10:09] LABS: ABG PCO2 39.8 mmHg (35.0-45.0)
[2016-02-21 10:10] LABS: ABG ALLEN TEST POSITIVE; ABG BASE EXCESS -2.9
[2016-02-21] MEDS: Pantoprazole Inj IVP SCH ×2 (10:35→20:47)
[2016-02-21] MEDS: Miralax 17gm pkt ORAL SCH (10:35)
[2016-02-21] MEDS: Docusate 100mg cap ORAL SCH (10:35)
--- NOTE | 2016-02-21 12:11 | Wound Care Consultation ---
Wound Assessment Wound Assessment #1: Wound Number: #1 Wound Present on Admission: Yes New Wound: No Status Change of Wound: No Wound Location Body Site Modif: mid Wound Location Body Site: sacral Wound Type: pressure ulcer Luciano Test: Does not Luciano Pressure Ulcer Stage: III Wound Thickness: Full Thickness Wound Length: 3.0 Wound Width: 3.0 Wound Depth: 0.3 Percent of Wound Raiford/Red: 80 Percent of Wound Bed Yellow/Wh: 20 Wound Drainage Description: Serosanguineous Wound Drainage Amount: Scant Wound Drainage Odor: None/Absent Tissue Surrounding Wound: Macerated Wound General Appearance: Reddened Wound Assessment #2: Wound Number: #2 Wound Present on Admission: Yes New Wound: No Status Change of Wound: No Wound Location Body Site Modif: right Wound Location Body Site: heel Wound Type: pressure ulcer Luciano Test: Does not Luciano Pressure Ulcer Stage: deep tissue injury Wound Thickness: Full Thickness Wound Length: 4.0 Wound Width: 4.0 Wound Depth: utd Percent of Wound Purple/Maroon: 100 Wound Drainage Amount: None Wound Drainage Odor: None/Absent Tissue Surrounding Wound: Erythemic Wound General Appearance: Reddened Wound Assessment #3: Wound Number: #3 Wound Present on Admission: Yes New Wound: No Status Change of Wound: No Wound Location Body Site Modif: left Wound Location Body Site: heel Wound Type: pressure ulcer Luciano Test: Does not Luciano Pressure Ulcer Stage: deep tissue injury - Suspected Wound Thickness: Full Thickness Wound Length: 4.0 Wound Width: 4.0 Wound Depth: utd Percent of Wound Raiford/Red: 50 - Dark Red. Percent of Wound Purple/Maroon: 50 Wound Drainage Amount: None Wound Drainage Odor: None/Absent Tissue Surrounding Wound: Erythemic Wound General Appearance: Reddened Wound Assessment #4: Wound Number: #4 Wound Present on Admission: Yes New Wound: No Status Change of Wound: No Wound Location Body Site: other - penis Wound Type: other - mucosal pressure ulcer scattered Luciano Test: Does not Luciano Wound Thickness: Full Thickness Wound Length: 2.0 Wound Width: 2.0 Percent of Wound Raiford/Red: 100 Wound Drainage Description: Serous Tissue Surrounding Wound: Edematous Wound General Appearance: Reddened, Bleeding Wound Comment #1 Sacral Pressure Ulcer Stage III. #2 Right Heel Pressure Ulcer Deep Tissue Injury. #3 Left Heel Suspected Deep Tissue Injury. #4 Mucosal Pressure Ulcer on Penis. #5 Left Hand Scattered Dry Scabs. #6 Left and Right Lower Extremity Dry skin. #7 Left and Right Multiple Scattered Ecchymosis. Recommendation. -Local wound care as ordered. -Low air loss mattress with AP. -Keep clean and dry. -Optimize Nutrition. -Heel Protectors. -Float heels and feet. -Turn and reposition. -Assess and follow up with MD for any changes noted. BECKA QUIGLEY Feb 21, 2016 12:11
--- NOTE | 2016-02-21 13:20 | Diagnostic Imaging Report ---
Indication: Abdominal pain Comparison: None Single view of the abdomen obtained Nasogastric tube is present and projected over the stomach. There is a relative absence of bowel gas. Ramirez catheter noted. Bilateral total hip arthroplasty noted. Extensive degenerative changes of the thoracolumbar spine are noted. Impression: Limited evaluation of bowel. NG tube noted.
[2016-02-21] MEDS ORDERED: Azithromycin 500 MG in NS 250 ML IV SCH (15:00)
[2016-02-21] MEDS ORDERED: Heparin Sod 1000 units/ml 10ml IV SCH (18:00)
--- NOTE | 2016-02-21 18:24 | Nephrology Progress Note ---
Assessment/Plan Problem List: (1) CAD (coronary artery disease) (2) Ischemic cardiomyopathy (3) COPD (chronic obstructive pulmonary disease) (4) Encephalopathy (5) PVD (peripheral vascular disease) (6) DM type 2 (diabetes mellitus, type 2) (7) Hypoxia (8) Septic shock (9) Pulmonary edema (10) Respiratory failure (11) ESRD (end stage renal disease) on dialysis (12) Hypotension Assessment hd -1200, chronic low bp, gradual uf for chf, monitor cxr labs Subjective ROS Limited/Unobtainable: Yes Objective Objective Last 24 Hour Vital Signs Date Time Temp Pulse Resp B/P Pulse Ox O2 Delivery O2 Flow Rate FiO2 02/21/16 18:00 70 18 96/56 95 Venturi Mask 35 02/21/16 17:51 92/43 02/21/16 17:50 92/43 02/21/16 17:15 70 26 95/50 95 Venturi Mask 35 02/21/16 17:00 70 23 85/51 98 Venturi Mask 35 02/21/16 17:00 85/51 02/21/16 16:45 70 24 78/48 99 Venturi Mask 35 02/21/16 16:30 70 24 90/55 100 Venturi Mask 35 02/21/16 16:15 70 23 90/55 100 Venturi Mask 35 02/21/16 16:00 96.5 70 22 114/44 98 Venturi Mask 35 02/21/16 16:00 114/44 02/21/16 16:00 70 02/21/16 15:45 70 23 89/51 100 Venturi Mask 35 02/21/16 15:31 70 23 100 Venturi Mask 6.0 35 02/21/16 15:30 70 23 89/51 100 Venturi Mask 35 02/21/16 15:20 35 02/21/16 15:20 70 22 99 Venturi Mask 6.0 35 02/21/16 15:15 70 23 89/51 100 Venturi Mask 35 02/21/16 15:00 70 24 80/55 98 Venturi Mask 35 02/21/16 14:45 70 22 94/61 97 Venturi Mask 35 02/21/16 14:30 70 22 98/73 97 Venturi Mask 35 02/21/16 14:15 70 22 89/56 97 Venturi Mask 35 02/21/16 14:00 70 24 99/78 97 Venturi Mask 35 02/21/16 13:53 Venturi Mask 6.0 35 02/21/16 13:45 70 21 87/51 97 Venturi Mask 35 02/21/16 13:30 70 24 85/54 97 Venturi Mask 35 02/21/16 13:15 70 24 88/43 97 Venturi Mask 35 02/21/16 13:00 70 22 101/45 96 Venturi Mask 35 02/21/16 12:45 70 24 100/58 95 Venturi Mask 35 02/21/16 12:30 70 24 95/66 95 Venturi Mask 35 02/21/16 12:15 70 25 100/58 97 Venturi Mask 35 02/21/16 12:00 96.2 70 23 98/48 96 Venturi Mask 35 02/21/16 12:00 70 02/21/16 11:45 70 21 98/53 96 Venturi Mask 35 02/21/16 11:30 70 26 96/49 97 Venturi Mask 35 02/21/16 11:29 Venturi Mask 6.0 35 02/21/16 11:28 100 Venturi Mask 6.0 35 02/21/16 11:26 70 17 100 Venturi Mask 6.0 35 02/21/16 11:18 35 02/21/16 11:18 70 36 6.0 02/21/16 11:15 70 28 96/59 99 Bi-pap 35 02/21/16 11:00 70 25 92/49 97 Bi-pap 35 02/21/16 10:45 71 28 97/45 94 Bi-pap 35 02/21/16 10:30 70 27 94/52 98 Bi-pap 35 02/21/16 10:15 70 29 94/50 98 Bi-pap 35 02/21/16 10:00 70 29 92/50 98 Bi-pap 35 02/21/16 09:45 70 27 105/63 99 Bi-pap 35 02/21/16 09:30 70 30 102/42 99 Bi-pap 35 02/21/16 09:28 74 20 99 Full Face 35 02/21/16 09:17 89/45 02/21/16 09:15 70 27 126/55 98 Bi-pap 35 02/21/16 09:00 70 27 89/45 97 Bi-pap 35 02/21/16 08:59 Bi-pap 35 02/21/16 08:57 96.0 70 21 101/46 97 Bi-pap 35 02/21/16 08:45 70 25 101/46 98 Bi-pap 35 02/21/16 08:30 70 27 86/54 98 Bi-pap 35 02/21/16 08:21 70 02/21/16 08:18 35 02/21/16 08:15 70 24 94/39 98 Bi-pap 35 02/21/16 08:00 96.0 70 26 92/51 98 Bi-pap 35 02/21/16 07:45 70 24 88/39 98 Bi-pap 35 02/21/16 07:30 70 27 89/40 97 Bi-pap 35 02/21/16 07:15 70 27 100 Bi-pap 35 02/21/16 07:15 70 28 93/41 97 Bi-pap 35 02/21/16 07:13 70 38 96 Full Face 35 02/21/16 07:04 70 34 96 Venturi Mask 10.0 35 02/21/16 07:04 35 02/21/16 07:00 70 28 93/41 99 Bi-pap 35 02/21/16 07:00 91/50 02/21/16 06:45 70 28 88/44 99 Bi-pap 35 02/21/16 06:30 70 25 95/46 99 Bi-pap 35 02/21/16 06:15 70 30 95/46 99 Bi-pap 35 02/21/16 06:00 70 28 87/61 99 Bi-pap 35 02/21/16 06:00 63/56 02/21/16 05:45 70 27 68/42 99 Bi-pap 35 02/21/16 05:30 96.2 70 32 93/50 99 Bi-pap 35 02/21/16 05:30 Bi-pap 35 02/21/16 05:15 70 25 95/46 100 Bi-pap 35 02/21/16 05:00 70 21 99 Full Face 35 02/21/16 05:00 70 28 93/50 100 Bi-pap 35 02/21/16 05:00 91/53 02/21/16 04:45 70 26 98/49 100 Bi-pap 35 02/21/16 04:41 70 02/21/16 04:30 70 25 99/54 100 Bi-pap 35 02/21/16 04:19 70 23 100 Full Face 35 02/21/16 04:15 70 24 96/46 97 Bi-pap 35 02/21/16 04:00 35 02/21/16 04:00 70 26 94/47 100 Bi-pap 35 02/21/16 04:00 98/50 02/21/16 03:45 70 28 98/50 96 Bi-pap 30 02/21/16 03:30 70 20 91/51 100 Mechanical Ventilator 30 02/21/16 03:20 71 16 100 Venturi Mask 10.0 35 02/21/16 03:15 70 20 91/45 100 Mechanical Ventilator 30 02/21/16 03:00 35 02/21/16 03:00 70 20 100 Venturi Mask 10.0 35 02/21/16 03:00 84/46 02/21/16 03:00 70 20 91/45 100 Mechanical Ventilator 30 02/21/16 02:45 70 20 95/47 100 Mechanical Ventilator 30 02/21/16 02:30 70 20 80/54 100 Mechanical Ventilator 30 02/21/16 02:27 100 Venturi Mask 12.0 50 02/21/16 02:25 Venturi Mask 12.0 50 02/21/16 02:22 Venturi Mask 12.0 50 02/21/16 02:15 70 20 84/46 100 Mechanical Ventilator 30 02/21/16 02:00 80/54 02/21/16 02:00 70 20 94/51 100 Mechanical Ventilator 30 02/21/16 01:45 70 20 93/49 100 Mechanical Ventilator 30 02/21/16 01:30 72 20 30 02/21/16 01:30 70 20 94/62 100 Mechanical Ventilator 30 02/21/16 01:15 70 20 98/53 100 Mechanical Ventilator 30 02/21/16 01:00 102/51 02/21/16 01:00 70 20 102/51 100 Mechanical Ventilator 30 02/21/16 00:45 70 20 98/51 100 Mechanical Ventilator 30 02/21/16 00:30 70 20 102/53 100 Mechanical Ventilator 30 02/21/16 00:15 70 20 102/52 100 Mechanical Ventilator 30 02/21/16 00:00 45 02/21/16 00:00 82 02/21/16 00:00 98.6 70 20 89/48 100 Mechanical Ventilator 30 02/21/16 00:00 89/48 02/20/16 23:45 70 20 87/48 100 Mechanical Ventilator 30 02/20/16 23:38 71 23 100 Mechanical Ventilator 40 02/20/16 23:30 72 21 89/53 100 Mechanical Ventilator 30 02/20/16 23:26 30 02/20/16 23:25 71 20 100 Mechanical Ventilator 30 02/20/16 23:24 71 20 30 02/20/16 23:00 70 21 88/47 100 Mechanical Ventilator 30 02/20/16 22:45 70 20 87/48 100 Mechanical Ventilator 30 02/20/16 22:30 71 20 86/50 98 Mechanical Ventilator 30 02/20/16 22:15 71 20 82/47 100 Mechanical Ventilator 45 02/20/16 22:00 70 22 84/50 100 Mechanical Ventilator 45 02/20/16 21:45 70 20 84/53 100 Mechanical Ventilator 45 02/20/16 21:30 71 21 82/46 98 Mechanical Ventilator 45 02/20/16 21:15 70 25 30 02/20/16 21:15 72 20 87/51 98 Mechanical Ventilator 45 02/20/16 21:00 71 20 85/49 98 Mechanical Ventilator 45 02/20/16 20:45 70 20 90/48 98 Mechanical Ventilator 45 02/20/16 20:30 70 20 92/51 97 Mechanical Ventilator 45 02/20/16 20:15 71 20 90/51 98 Mechanical Ventilator 45 02/20/16 20:00 97.4 70 21 91/56 100 Mechanical Ventilator 45 02/20/16 19:45 71 21 92/54 100 Mechanical Ventilator 45 02/20/16 19:30 71 22 98/55 100 Mechanical Ventilator 45 02/20/16 19:15 70 20 94/56 97 Mechanical Ventilator 45 02/20/16 19:00 71 20 90/56 100 Mechanical Ventilator 45 02/20/16 18:50 70 26 40 02/20/16 18:49 70 26 100 Mechanical Ventilator 40 02/20/16 18:49 40 02/20/16 18:45 70 20 89/51 100 Mechanical Ventilator 45 02/20/16 18:30 70 22 83/51 98 Mechanical Ventilator 45 Intake and Output 02/20/16 02/21/16 18:59 06:59 Intake Total 700 ml 225.51 ml Output Total 15 ml 45 ml Balance 685 ml 180.51 ml Intake IV Total 700 ml 225.51 ml Output Urine Total 15 ml 45 ml Laboratory Tests 02/21/16 02:45: Arterial Blood pH 7.292L, Arterial Blood Partial Pressure CO2 45.4H, Arterial Blood Partial Pressure O2 113.6H, Arterial Blood HCO3 21.4L, Arterial Blood Oxygen Saturation 97.9, Arterial Blood Base Excess -5.0, Cachorro Test Positive 02/21/16 05:15: White Blood Count 11.4H, Red Blood Count 3.71L, Hemoglobin 10.6L, Hematocrit 35.1L, Mean Corpuscular Volume 95, Mean Corpuscular Hemoglobin 28.6, Mean Corpuscular Hemoglobin Concent 30.2L, Red Cell Distribution Width 23.6H, Platelet Count 38L, Mean Platelet Volume 5.1L, Neutrophils (%) (Auto) , Lymphocytes (%) (Auto) , Monocytes (%) (Auto) , Eosinophils (%) (Auto) , Basophils (%) (Auto) , Differential Total Cells Counted 100, Neutrophils % ( Manual) 77H, Lymphocytes % (Manual) 6L, Monocytes % (Manual) 5, Eosinophils % ( Manual) 12H, Basophils % (Manual) 0, Band Neutrophils 0, Platelet Estimate DecreasedL, Platelet Morphology Normal, Polychromasia Occasional, Hypochromasia 1+, Anisocytosis 2+, Prothrombin Time 15.1H, Prothromb Time International Ratio 1.5H, Activated Partial Thromboplast Time 55H, Fibrinogen 358, Fibrin Degradation Products, Quant [Pending], Sodium Level 134L, Potassium Level 3.9, Chloride Level 97L, Carbon Dioxide Level 19L, Anion Gap 18H, Blood Urea Nitrogen 30H, Creatinine 3.5H, Estimat Glomerular Filtration Rate , Glucose Level 59L, Calcium Level 8.7, Phosphorus Level 4.0, Troponin I < 0.30 02/21/16 10:00: Arterial Blood pH 7.365, Arterial Blood Partial Pressure CO2 39.8, Arterial Blood Partial Pressure O2 80.7, Arterial Blood HCO3 22.2, Arterial Blood Oxygen Saturation 96.0, Arterial Blood Base Excess -2.9, C[place]orro Test Positive Height (Feet): 5 Height (Inches): 4.00 Weight (Pounds): 145 General Appearance: lethargic, mild distress EENT: normal ENT inspection Neck: normal alignment Cardiovascular: regular rhythm Respiratory/Chest: decreased breath sounds Abdomen: non tender, soft Extremities: trace edema Neurologic: depressed affect ARNALDO MARTÍNEZ Feb 21, 2016 18:23
--- NOTE | 2016-02-21 19:06 | General Progress Note ---
Assessment/Plan Problem List: (1) Pulmonary edema ICD Codes: J81.1 - Chronic pulmonary edema SNOMED: 38632633 Qualifiers: Qualified Codes: J81.0 - Acute pulmonary edema (2) Hypotension ICD Codes: I95.9 - Hypotension, unspecified SNOMED: 67625329 Qualifiers: Qualified Codes: I95.89 - Other hypotension (3) Pneumonia ICD Codes: J18.9 - Pneumonia, unspecified organism SNOMED: 956531435 Qualifiers: Qualified Codes: J18.9 - Pneumonia, unspecified organism (4) ESRD (end stage renal disease) on dialysis ICD Codes: N18.6 - End stage renal disease; Z99.2 - Dependence on renal dialysis SNOMED: 709546747 (5) Respiratory failure ICD Codes: J96.90 - Respiratory failure, unspecified, unspecified whether with hypoxia or hypercapnia SNOMED: 575360624 Qualifiers: Qualified Codes: J96.01 - Acute respiratory failure with hypoxia; J96.02 - Acute respiratory failure with hypercapnia (6) Hypoxia ICD Codes: R09.02 - Hypoxemia SNOMED: 68244426, 054413377 (7) CAD (coronary artery disease) ICD Codes: I25.10 - Atherosclerotic heart disease of [place] coronary artery without angina pectoris SNOMED: 87994340 (8) Ischemic cardiomyopathy ICD Codes: I25.5 - Ischemic cardiomyopathy SNOMED: 692203425 (9) COPD (chronic obstructive pulmonary disease) ICD Codes: J44.9 - Chronic obstructive pulmonary disease, unspecified SNOMED: 04964641 (10) Thrombocytopenia ICD Codes: D69.6 - Thrombocytopenia, unspecified SNOMED: 487448141 (11) Encephalopathy ICD Codes: G93.40 - Encephalopathy, unspecified SNOMED: 30106850, 808600254 (12) PVD (peripheral vascular disease) ICD Codes: I73.9 - Peripheral vascular disease, unspecified SNOMED: 382442954 (13) A-fib ICD Codes: I48.91 - Unspecified atrial fibrillation SNOMED: 04489365 (14) HTN (hypertension) ICD Codes: I10 - Essential (primary) hypertension SNOMED: 11916519 (15) DM type 2 (diabetes mellitus, type 2) ICD Codes: E11.9 - Type 2 diabetes mellitus without complications SNOMED: 27906874 (16) HLD (hyperlipidemia) ICD Codes: E78.5 - Hyperlipidemia, unspecified SNOMED: 58618786 (17) Septic shock ICD Codes: A41.9 - Sepsis, unspecified organism; R65.21 - Severe sepsis with septic shock SNOMED: 10327356 Status: progressing Assessment/Plan Pt admitted to ICU intubated for ventilatory support for acute hypoxic respiratory failure. Now extubated and on venturi mask Dr. Marin of pulm crit conslted; appreciate involvement cont atc duo nebs Zosyn, vanc and azithromycin, HCAP v CAP Dr. Mcnamara of Nephrology c/s'd; resumed HD cont home meds hold eliquis and pharm dvt ppx; scd only f/u DIC panel--D dimer high Subjective Date patient seen: Feb 21, 2016 Time patient seen: 19:05 Allergies: Coded Allergies: No Known Allergies (Unverified , 02/20/16) Subjective no acute events o/n; pt extubated today Objective Last 24 Hour Vital Signs Date Time Temp Pulse Resp B/P Pulse Ox O2 Delivery O2 Flow Rate FiO2 02/21/16 18:51 35 02/21/16 18:51 70 16 96 Venturi Mask 6.0 35 02/21/16 18:50 Venturi Mask 6.0 35 02/21/16 18:50 96 Venturi Mask 6.0 35 02/21/16 18:30 70 26 99/53 95 Venturi Mask 35 02/21/16 18:15 70 24 99/53 95 Venturi Mask 35 02/21/16 18:00 70 18 96/56 95 Venturi Mask 35 02/21/16 17:51 92/43 02/21/16 17:50 92/43 02/21/16 17:45 70 25 92/43 95 Venturi Mask 35 02/21/16 17:30 70 25 95/50 95 Venturi Mask 35 02/21/16 17:15 70 26 95/50 95 Venturi Mask 35 02/21/16 17:00 70 23 85/51 98 Venturi Mask 35 02/21/16 17:00 85/51 02/21/16 16:45 70 24 78/48 99 Venturi Mask 35 02/21/16 16:30 70 24 90/55 100 Venturi Mask 35 02/21/16 16:15 70 23 90/55 100 Venturi Mask 35 02/21/16 16:00 96.5 70 22 114/44 98 Venturi Mask 35 02/21/16 16:00 114/44 02/21/16 16:00 70 02/21/16 15:45 70 23 89/51 100 Venturi Mask 35 02/21/16 15:31 70 23 100 Venturi Mask 6.0 35 02/21/16 15:30 70 23 89/51 100 Venturi Mask 35 02/21/16 15:20 35 02/21/16 15:20 70 22 99 Venturi Mask 6.0 35 02/21/16 15:15 70 23 89/51 100 Venturi Mask 35 02/21/16 15:00 70 24 80/55 98 Venturi Mask 35 02/21/16 14:45 70 22 94/61 97 Venturi Mask 35 02/21/16 14:30 70 22 98/73 97 Venturi Mask 35 02/21/16 14:15 70 22 89/56 97 Venturi Mask 35 02/21/16 14:00 70 24 99/78 97 Venturi Mask 35 02/21/16 13:53 Venturi Mask 6.0 35 02/21/16 13:45 70 21 87/51 97 Venturi Mask 35 02/21/16 13:30 70 24 85/54 97 Venturi Mask 35 02/21/16 13:15 70 24 88/43 97 Venturi Mask 35 02/21/16 13:00 70 22 101/45 96 Venturi Mask 35 02/21/16 12:45 70 24 100/58 95 Venturi Mask 35 02/21/16 12:30 70 24 95/66 95 Venturi Mask 35 02/21/16 12:15 70 25 100/58 97 Venturi Mask 35 02/21/16 12:00 96.2 70 23 98/48 96 Venturi Mask 35 02/21/16 12:00 70 02/21/16 11:45 70 21 98/53 96 Venturi Mask 35 02/21/16 11:30 70 26 96/49 97 Venturi Mask 35 02/21/16 11:29 Venturi Mask 6.0 35 02/21/16 11:28 100 Venturi Mask 6.0 35 02/21/16 11:26 70 17 100 Venturi Mask 6.0 35 02/21/16 11:18 35 02/21/16 11:18 70 36 6.0 02/21/16 11:15 70 28 96/59 99 Bi-pap 35 02/21/16 11:00 70 25 92/49 97 Bi-pap 35 02/21/16 10:45 71 28 97/45 94 Bi-pap 35 02/21/16 10:30 70 27 94/52 98 Bi-pap 35 02/21/16 10:15 70 29 94/50 98 Bi-pap 35 02/21/16 10:00 70 29 92/50 98 Bi-pap 35 02/21/16 09:45 70 27 105/63 99 Bi-pap 35 02/21/16 09:30 70 30 102/42 99 Bi-pap 35 02/21/16 09:28 74 20 99 Full Face 35 02/21/16 09:17 89/45 02/21/16 09:15 70 27 126/55 98 Bi-pap 35 02/21/16 09:00 70 27 89/45 97 Bi-pap 35 02/21/16 08:59 Bi-pap 35 02/21/16 08:57 96.0 70 21 101/46 97 Bi-pap 35 02/21/16 08:45 70 25 101/46 98 Bi-pap 35 02/21/16 08:30 70 27 86/54 98 Bi-pap 35 02/21/16 08:21 70 02/21/16 08:18 35 02/21/16 08:15 70 24 94/39 98 Bi-pap 35 02/21/16 08:00 96.0 70 26 92/51 98 Bi-pap 35 02/21/16 07:45 70 24 88/39 98 Bi-pap 35 02/21/16 07:30 70 27 89/40 97 Bi-pap 35 02/21/16 07:15 70 27 100 Bi-pap 35 02/21/16 07:15 70 28 93/41 97 Bi-pap 35 02/21/16 07:13 70 38 96 Full Face 35 02/21/16 07:04 70 34 96 Venturi Mask 10.0 35 02/21/16 07:04 35 02/21/16 07:00 70 28 93/41 99 Bi-pap 35 02/21/16 07:00 91/50 02/21/16 06:45 70 28 88/44 99 Bi-pap 35 02/21/16 06:30 70 25 95/46 99 Bi-pap 35 02/21/16 06:15 70 30 95/46 99 Bi-pap 35 02/21/16 06:00 70 28 87/61 99 Bi-pap 35 02/21/16 06:00 63/56 02/21/16 05:45 70 27 68/42 99 Bi-pap 35 02/21/16 05:30 96.2 70 32 93/50 99 Bi-pap 35 02/21/16 05:30 Bi-pap 35 02/21/16 05:15 70 25 95/46 100 Bi-pap 35 02/21/16 05:00 70 21 99 Full Face 35 02/21/16 05:00 70 28 93/50 100 Bi-pap 35 02/21/16 05:00 91/53 02/21/16 04:45 70 26 98/49 100 Bi-pap 35 02/21/16 04:41 70 02/21/16 04:30 70 25 99/54 100 Bi-pap 35 02/21/16 04:19 70 23 100 Full Face 35 02/21/16 04:15 70 24 96/46 97 Bi-pap 35 02/21/16 04:00 35 02/21/16 04:00 70 26 94/47 100 Bi-pap 35 02/21/16 04:00 98/50 02/21/16 03:45 70 28 98/50 96 Bi-pap 30 02/21/16 03:30 70 20 91/51 100 Mechanical Ventilator 30 02/21/16 03:20 71 16 100 Venturi Mask 10.0 35 02/21/16 03:15 70 20 91/45 100 Mechanical Ventilator 30 02/21/16 03:00 35 02/21/16 03:00 70 20 100 Venturi Mask 10.0 35 02/21/16 03:00 84/46 02/21/16 03:00 70 20 91/45 100 Mechanical Ventilator 30 02/21/16 02:45 70 20 95/47 100 Mechanical Ventilator 30 02/21/16 02:30 70 20 80/54 100 Mechanical Ventilator 30 02/21/16 02:27 100 Venturi Mask 12.0 50 02/21/16 02:25 Venturi Mask 12.0 50 02/21/16 02:22 Venturi Mask 12.0 50 02/21/16 02:15 70 20 84/46 100 Mechanical Ventilator 30 02/21/16 02:00 80/54 02/21/16 02:00 70 20 94/51 100 Mechanical Ventilator 30 02/21/16 01:45 70 20 93/49 100 Mechanical Ventilator 30 02/21/16 01:30 72 20 30 02/21/16 01:30 70 20 94/62 100 Mechanical Ventilator 30 02/21/16 01:15 70 20 98/53 100 Mechanical Ventilator 30 02/21/16 01:00 102/51 02/21/16 01:00 70 20 102/51 100 Mechanical Ventilator 30 02/21/16 00:45 70 20 98/51 100 Mechanical Ventilator 30 02/21/16 00:30 70 20 102/53 100 Mechanical Ventilator 30 02/21/16 00:15 70 20 102/52 100 Mechanical Ventilator 30 02/21/16 00:00 45 02/21/16 00:00 82 02/21/16 00:00 98.6 70 20 89/48 100 Mechanical Ventilator 30 02/21/16 00:00 89/48 02/20/16 23:45 70 20 87/48 100 Mechanical Ventilator 30 02/20/16 23:38 71 23 100 Mechanical Ventilator 40 02/20/16 23:30 72 21 89/53 100 Mechanical Ventilator 30 02/20/16 23:26 30 02/20/16 23:25 71 20 100 Mechanical Ventilator 30 02/20/16 23:24 71 20 30 02/20/16 23:00 70 21 88/47 100 Mechanical Ventilator 30 02/20/16 22:45 70 20 87/48 100 Mechanical Ventilator 30 02/20/16 22:30 71 20 86/50 98 Mechanical Ventilator 30 02/20/16 22:15 71 20 82/47 100 Mechanical Ventilator 45 02/20/16 22:00 70 22 84/50 100 Mechanical Ventilator 45 02/20/16 21:45 70 20 84/53 100 Mechanical Ventilator 45 02/20/16 21:30 71 21 82/46 98 Mechanical Ventilator 45 02/20/16 21:15 70 25 30 02/20/16 21:15 72 20 87/51 98 Mechanical Ventilator 45 02/20/16 21:00 71 20 85/49 98 Mechanical Ventilator 45 02/20/16 20:45 70 20 90/48 98 Mechanical Ventilator 45 02/20/16 20:30 70 20 92/51 97 Mechanical Ventilator 45 02/20/16 20:15 71 20 90/51 98 Mechanical Ventilator 45 02/20/16 20:00 97.4 70 21 91/56 100 Mechanical Ventilator 45 02/20/16 19:45 71 21 92/54 100 Mechanical Ventilator 45 02/20/16 19:30 71 22 98/55 100 Mechanical Ventilator 45 02/20/16 19:15 70 20 94/56 97 Mechanical Ventilator 45 Intake and Output 02/20/16 02/21/16 19:00 07:00 Intake Total 719.05 ml 221.46 ml Output Total 15 ml 45 ml Balance 704.05 ml 176.46 ml Intake IV Total 719.05 ml 221.46 ml Output Urine Total 15 ml 45 ml Laboratory Tests 02/21/16 02:45: Arterial Blood pH 7.292L, Arterial Blood Partial Pressure CO2 45.4H, Arterial Blood Partial Pressure O2 113.6H, Arterial Blood HCO3 21.4L, Arterial Blood Oxygen Saturation 97.9, Arterial Blood Base Excess -5.0, C[place]orro Test Positive 02/21/16 05:15: White Blood Count 11.4H, Red Blood Count 3.71L, Hemoglobin 10.6L, Hematocrit 35.1L, Mean Corpuscular Volume 95, Mean Corpuscular Hemoglobin 28.6, Mean Corpuscular Hemoglobin Concent 30.2L, Red Cell Distribution Width 23.6H, Platelet Count 38L, Mean Platelet Volume 5.1L, Neutrophils (%) (Auto) , Lymphocytes (%) (Auto) , Monocytes (%) (Auto) , Eosinophils (%) (Auto) , Basophils (%) (Auto) , Differential Total Cells Counted 100, Neutrophils % ( Manual) 77H, Lymphocytes % (Manual) 6L, Monocytes % (Manual) 5, Eosinophils % ( Manual) 12H, Basophils % (Manual) 0, Band Neutrophils 0, Platelet Estimate DecreasedL, Platelet Morphology Normal, Polychromasia Occasional, Hypochromasia 1+, Anisocytosis 2+, Prothrombin Time 15.1H, Prothromb Time International Ratio 1.5H, Activated Partial Thromboplast Time 55H, Fibrinogen 358, Fibrin Degradation Products, Quant [Pending], Sodium Level 134L, Potassium Level 3.9, Chloride Level 97L, Carbon Dioxide Level 19L, Anion Gap 18H, Blood Urea Nitrogen 30H, Creatinine 3.5H, Estimat Glomerular Filtration Rate , Glucose Level 59L, Calcium Level 8.7, Phosphorus Level 4.0, Troponin I < 0.30 02/21/16 10:00: Arterial Blood pH 7.365, Arterial Blood Partial Pressure CO2 39.8, Arterial Blood Partial Pressure O2 80.7, Arterial Blood HCO3 22.2, Arterial Blood Oxygen Saturation 96.0, Arterial Blood Base Excess -2.9, C[place] Test Positive Height (Feet): 5 Height (Inches): 4.00 Weight (Pounds): 145 Objective General Appearance: no apparent distress, alert, lethargic - but arousable; cachetic Lines, tubes and drains: central line - R EJ, dialysis access - R cath HEENT: normocephalic, atraumatic, anicteric, PERRL, EOMI, no JVD, other - dry mm Neck: non-tender, supple Respiratory/Chest: expiratory wheezing, on vent Cardiovascular/Chest: normal peripheral pulses, normal rate, regular rhythm Abdomen: normal bowel sounds, non tender, soft, no mass Genitourinary/Rectal: leon Extremities: non-tender, normal inspection Skin Exam: warm/dry, other - ecchymoses of LLQ 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 Feb 21, 2016 19:06
--- NOTE | 2016-02-21 19:13 | Pulmonolgy Critical Care Note ---
Critical Care - Asmt/Plan Problems: (1) Severe sepsis (2) Hypotension (3) Pulmonary edema (4) Pneumonia (5) ESRD (end stage renal disease) on dialysis (6) DM type 2 (diabetes mellitus, type 2) (7) HTN (hypertension) (8) HLD (hyperlipidemia) (9) Hypoxia (10) A-fib (11) PVD (peripheral vascular disease) (12) Encephalopathy (13) Thrombocytopenia (14) COPD (chronic obstructive pulmonary disease) (15) Ischemic cardiomyopathy (16) CAD (coronary artery disease) Respiratory: other - Titrate down FiO2 to keep SaO2 ~ 90-92%, optimize pulmonary hygiene/mobilize as tolerated, RTC and PRN DUOnebs, gentle suctioning Cardiac: continue pressors - Titrate to MAP > 60, D/W renal Re: starting midodrine once able to tolerate PO, continue to monitor HR/BP, other - F/U TTE, HD per renal with gentle UF as tolerated Renal: check electrolytes, other - HD with UF as toelrated Infectious Disease: continue antibiotics - Vanco/Zosyn/Azithro (D2), F/U Cx's Gastrointestinal: other - BINDING STITCHER eval, then advance diet Endocrine: continue sliding scale insulin Hematologic: other - D-dimer elevated, Duplex neg, VQ pending, monitor platelets - transfuse as needed, consider heme eval Neurologic: keep patient comfortable Prophylaxis: Protonix, SCDs Disposition: keep in ICU Time Spent (Minutes): 60 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, 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 Critical Care - Objective Last 24 Hour Vital Signs Date Time Temp Pulse Resp B/P Pulse Ox O2 Delivery O2 Flow Rate FiO2 02/21/16 18:51 35 02/21/16 18:51 70 16 96 Venturi Mask 6.0 35 02/21/16 18:50 Venturi Mask 6.0 35 02/21/16 18:50 96 Venturi Mask 6.0 35 02/21/16 18:30 70 26 99/53 95 Venturi Mask 35 02/21/16 18:15 70 24 99/53 95 Venturi Mask 35 02/21/16 18:00 70 18 96/56 95 Venturi Mask 35 02/21/16 17:51 92/43 02/21/16 17:50 92/43 02/21/16 17:45 70 25 92/43 95 Venturi Mask 35 02/21/16 17:30 70 25 95/50 95 Venturi Mask 35 02/21/16 17:15 70 26 95/50 95 Venturi Mask 35 02/21/16 17:00 70 23 85/51 98 Venturi Mask 35 02/21/16 17:00 85/51 02/21/16 16:45 70 24 78/48 99 Venturi Mask 35 02/21/16 16:30 70 24 90/55 100 Venturi Mask 35 02/21/16 16:15 70 23 90/55 100 Venturi Mask 35 02/21/16 16:00 96.5 70 22 114/44 98 Venturi Mask 35 02/21/16 16:00 114/44 02/21/16 16:00 70 02/21/16 15:45 70 23 89/51 100 Venturi Mask 35 02/21/16 15:31 70 23 100 Venturi Mask 6.0 35 02/21/16 15:30 70 23 89/51 100 Venturi Mask 35 02/21/16 15:20 35 02/21/16 15:20 70 22 99 Venturi Mask 6.0 35 02/21/16 15:15 70 23 89/51 100 Venturi Mask 35 02/21/16 15:00 70 24 80/55 98 Venturi Mask 35 02/21/16 14:45 70 22 94/61 97 Venturi Mask 35 02/21/16 14:30 70 22 98/73 97 Venturi Mask 35 02/21/16 14:15 70 22 89/56 97 Venturi Mask 35 02/21/16 14:00 70 24 99/78 97 Venturi Mask 35 02/21/16 13:53 Venturi Mask 6.0 35 02/21/16 13:45 70 21 87/51 97 Venturi Mask 35 02/21/16 13:30 70 24 85/54 97 Venturi Mask 35 02/21/16 13:15 70 24 88/43 97 Venturi Mask 35 02/21/16 13:00 70 22 101/45 96 Venturi Mask 35 02/21/16 12:45 70 24 100/58 95 Venturi Mask 35 02/21/16 12:30 70 24 95/66 95 Venturi Mask 35 02/21/16 12:15 70 25 100/58 97 Venturi Mask 35 02/21/16 12:00 96.2 70 23 98/48 96 Venturi Mask 35 02/21/16 12:00 70 02/21/16 11:45 70 21 98/53 96 Venturi Mask 35 02/21/16 11:30 70 26 96/49 97 Venturi Mask 35 02/21/16 11:29 Venturi Mask 6.0 35 02/21/16 11:28 100 Venturi Mask 6.0 35 02/21/16 11:26 70 17 100 Venturi Mask 6.0 35 02/21/16 11:18 35 02/21/16 11:18 70 36 6.0 02/21/16 11:15 70 28 96/59 99 Bi-pap 35 02/21/16 11:00 70 25 92/49 97 Bi-pap 35 02/21/16 10:45 71 28 97/45 94 Bi-pap 35 02/21/16 10:30 70 27 94/52 98 Bi-pap 35 02/21/16 10:15 70 29 94/50 98 Bi-pap 35 02/21/16 10:00 70 29 92/50 98 Bi-pap 35 02/21/16 09:45 70 27 105/63 99 Bi-pap 35 02/21/16 09:30 70 30 102/42 99 Bi-pap 35 02/21/16 09:28 74 20 99 Full Face 35 02/21/16 09:17 89/45 02/21/16 09:15 70 27 126/55 98 Bi-pap 35 02/21/16 09:00 70 27 89/45 97 Bi-pap 35 02/21/16 08:59 Bi-pap 35 02/21/16 08:57 96.0 70 21 101/46 97 Bi-pap 35 02/21/16 08:45 70 25 101/46 98 Bi-pap 35 02/21/16 08:30 70 27 86/54 98 Bi-pap 35 02/21/16 08:21 70 02/21/16 08:18 35 02/21/16 08:15 70 24 94/39 98 Bi-pap 35 02/21/16 08:00 96.0 70 26 92/51 98 Bi-pap 35 02/21/16 07:45 70 24 88/39 98 Bi-pap 35 02/21/16 07:30 70 27 89/40 97 Bi-pap 35 02/21/16 07:15 70 27 100 Bi-pap 35 02/21/16 07:15 70 28 93/41 97 Bi-pap 35 02/21/16 07:13 70 38 96 Full Face 35 02/21/16 07:04 70 34 96 Venturi Mask 10.0 35 02/21/16 07:04 35 02/21/16 07:00 70 28 93/41 99 Bi-pap 35 02/21/16 07:00 91/50 02/21/16 06:45 70 28 88/44 99 Bi-pap 35 02/21/16 06:30 70 25 95/46 99 Bi-pap 35 02/21/16 06:15 70 30 95/46 99 Bi-pap 35 02/21/16 06:00 70 28 87/61 99 Bi-pap 35 02/21/16 06:00 63/56 02/21/16 05:45 70 27 68/42 99 Bi-pap 35 02/21/16 05:30 96.2 70 32 93/50 99 Bi-pap 35 02/21/16 05:30 Bi-pap 35 02/21/16 05:15 70 25 95/46 100 Bi-pap 35 02/21/16 05:00 70 21 99 Full Face 35 02/21/16 05:00 70 28 93/50 100 Bi-pap 35 02/21/16 05:00 91/53 02/21/16 04:45 70 26 98/49 100 Bi-pap 35 02/21/16 04:41 70 02/21/16 04:30 70 25 99/54 100 Bi-pap 35 02/21/16 04:19 70 23 100 Full Face 35 02/21/16 04:15 70 24 96/46 97 Bi-pap 35 02/21/16 04:00 35 02/21/16 04:00 70 26 94/47 100 Bi-pap 35 02/21/16 04:00 98/50 02/21/16 03:45 70 28 98/50 96 Bi-pap 30 02/21/16 03:30 70 20 91/51 100 Mechanical Ventilator 30 02/21/16 03:20 71 16 100 Venturi Mask 10.0 35 02/21/16 03:15 70 20 91/45 100 Mechanical Ventilator 30 02/21/16 03:00 35 02/21/16 03:00 70 20 100 Venturi Mask 10.0 35 02/21/16 03:00 84/46 02/21/16 03:00 70 20 91/45 100 Mechanical Ventilator 30 02/21/16 02:45 70 20 95/47 100 Mechanical Ventilator 30 02/21/16 02:30 70 20 80/54 100 Mechanical Ventilator 30 02/21/16 02:27 100 Venturi Mask 12.0 50 02/21/16 02:25 Venturi Mask 12.0 50 02/21/16 02:22 Venturi Mask 12.0 50 02/21/16 02:15 70 20 84/46 100 Mechanical Ventilator 30 02/21/16 02:00 80/54 02/21/16 02:00 70 20 94/51 100 Mechanical Ventilator 30 02/21/16 01:45 70 20 93/49 100 Mechanical Ventilator 30 02/21/16 01:30 72 20 30 02/21/16 01:30 70 20 94/62 100 Mechanical Ventilator 30 02/21/16 01:15 70 20 98/53 100 Mechanical Ventilator 30 02/21/16 01:00 102/51 02/21/16 01:00 70 20 102/51 100 Mechanical Ventilator 30 02/21/16 00:45 70 20 98/51 100 Mechanical Ventilator 30 02/21/16 00:30 70 20 102/53 100 Mechanical Ventilator 30 02/21/16 00:15 70 20 102/52 100 Mechanical Ventilator 30 02/21/16 00:00 45 02/21/16 00:00 82 02/21/16 00:00 98.6 70 20 89/48 100 Mechanical Ventilator 30 02/21/16 00:00 89/48 02/20/16 23:45 70 20 87/48 100 Mechanical Ventilator 30 02/20/16 23:38 71 23 100 Mechanical Ventilator 40 02/20/16 23:30 72 21 89/53 100 Mechanical Ventilator 30 02/20/16 23:26 30 02/20/16 23:25 71 20 100 Mechanical Ventilator 30 02/20/16 23:24 71 20 30 02/20/16 23:00 70 21 88/47 100 Mechanical Ventilator 30 02/20/16 22:45 70 20 87/48 100 Mechanical Ventilator 30 02/20/16 22:30 71 20 86/50 98 Mechanical Ventilator 30 02/20/16 22:15 71 20 82/47 100 Mechanical Ventilator 45 02/20/16 22:00 70 22 84/50 100 Mechanical Ventilator 45 02/20/16 21:45 70 20 84/53 100 Mechanical Ventilator 45 02/20/16 21:30 71 21 82/46 98 Mechanical Ventilator 45 02/20/16 21:15 70 25 30 02/20/16 21:15 72 20 87/51 98 Mechanical Ventilator 45 02/20/16 21:00 71 20 85/49 98 Mechanical Ventilator 45 02/20/16 20:45 70 20 90/48 98 Mechanical Ventilator 45 02/20/16 20:30 70 20 92/51 97 Mechanical Ventilator 45 02/20/16 20:15 71 20 90/51 98 Mechanical Ventilator 45 02/20/16 20:00 97.4 70 21 91/56 100 Mechanical Ventilator 45 02/20/16 19:45 71 21 92/54 100 Mechanical Ventilator 45 02/20/16 19:30 71 22 98/55 100 Mechanical Ventilator 45 02/20/16 19:15 70 20 94/56 97 Mechanical Ventilator 45 Status: somnolent Condition: critical HEENT: atraumatic, normocephalic Neck: full ROM Lungs: rhonchi - scattered Heart: HR/BP unstable Abdomen: soft, non-tender, active bowel sounds Extremities: no C/C/E Objective: 02/05/16 CT CAP @ [facility]: 1. Left anterior chest wall hematoma, partially obscured by metallic artifact from adjacent pacemaker. 2. Mild to moderate cardiomegaly with moderate right pleural effusion and pulmonary vascular congestion. 3. Mild splenomegaly with a couple of low-density lesions in the spleen the largest likely a cyst. 4. Gallstones. 5. Small ascites and diffuse anasarca. 6. 13 mm hyperdense lesion appears to washout on the delayed images and is suspicious for a small renal cell carcinoma. This was slightly smaller at 8 mm on the study of 07/06/2011 and more hypodense and therefore appears to be enhancing. 7. 3 cm infrarenal abdominal aortic aneurysm as well as left iliac artery aneurysmal dilatation. 12/15/15 TTE @ [facility]: Conclusions: 1. VERY SEVERE left ventricular systolic dysfunction. LV Ejection Fraction is 14 %. Severe diastolic dysfunction. Tissue Doppler/Mitral Doppler indices are consistent with restrictive physiology with markedly elevated left atrial pressures at rest. 2. Total wall motion score is 2.47. There is dyskinesis of the apical cap. There is dyskinesis of the apical septal wall. There is akinesis of the mid to apical inferior wall. There is akinesis of the mid anteroseptal to septal wall. The remaining left ventricular segments demonstrate hypokinesis. 3. Moderately depressed right ventricular systolic function. 4. There is moderate tricuspid regurgitation. 5. The inferior vena cava demonstrates no inspiratory collapse, consistent with significantly elevated right atrial pressure (>15 mmHg). 6. Estimated PA Pressure is 63.0 mmHg. PA systolic pressure is consistent with severe pulmonary hypertension. Micro: Microbiology Date/Time Source Procedure Growth Status 02/20/16 15:30 Urine,Clean Catch Urine Culture - Preliminary Resulted Accucheck: 85 Blood Sugars: BS controlled Critical Care - Subjective ROS Limited/Unobtainable: Yes ICU Day: 3 Interval Events: Self extubated O/N, placed on BiPAP, S/P HD -1200, gas exchange better, taken off BiPAP D/W Dr Mcnamara, patient with chronically low BP, likely exacerbated by shock - likely cardiogenic and distributive components Condition: critical IV Access: central - R IJ CVC, R CW tunneled cath EKG Rhythm: Sinus Rhythm FI02: 35 Vent Support Breath Rate: 20 Vent Support Mode: AC Vent Tidal Volume: 550 Sputum Amount: Small PEEP: 5.0 PIP: 25 Secretions: Scant thick, some hemoptysis Drips: NE @ 20 mcg I&O: Intake and Output 02/20/16 02/21/16 19:00 07:00 Intake Total 719.05 ml 221.46 ml Output Total 15 ml 45 ml Balance 704.05 ml 176.46 ml Intake IV Total 719.05 ml 221.46 ml Output Urine Total 15 ml 45 ml Subjective: Unable to provide any history ET-Tube: 7.5 ET Position: 24 Labs: Laboratory Tests Test 02/21/16 02:45 02/21/16 05:15 02/21/16 10:00 Arterial Blood pH 7.292 (7.350-7.450) 7.365 (7.350-7.450) Arterial Blood Partial Pressure CO2 45.4 mmHg (35.0-45.0) H 39.8 mmHg (35.0-45.0) Arterial Blood Partial Pressure O2 113.6 mmHg (75.0-100.0) H 80.7 mmHg (75.0-100.0) Arterial Blood HCO3 21.4 mmol/L (22.0-26.0) L 22.2 mmol/L (22.0-26.0) Arterial Blood Oxygen Saturation 97.9 % (92.0-98.0) 96.0 % (92.0-98.0) Arterial Blood Base Excess -5.0 -2.9 [place] Test Positive Positive White Blood Count 11.4 K/UL (4.8-10.8) H Red Blood Count 3.71 M/UL (4.70-6.10) L Hemoglobin 10.6 G/DL (14.2-18.0) L Hematocrit 35.1 % (42.0-52.0) L Mean Corpuscular Volume 95 FL (80-99) Mean Corpuscular Hemoglobin 28.6 PG (27.0-31.0) Mean Corpuscular Hemoglobin Concent 30.2 G/DL (32.0-36.0) L Red Cell Distribution Width 23.6 % (11.6-14.8) H Platelet Count 38 K/UL (150-450) L Mean Platelet Volume 5.1 FL (6.5-10.1) L Neutrophils (%) (Auto) % (45.0-75.0) Lymphocytes (%) (Auto) % (20.0-45.0) Monocytes (%) (Auto) % (1.0-10.0) Eosinophils (%) (Auto) % (0.0-3.0) Basophils (%) (Auto) % (0.0-2.0) Differential Total Cells Counted 100 Neutrophils % (Manual) 77 % (45-75) H Lymphocytes % (Manual) 6 % (20-45) L Monocytes % (Manual) 5 % (1-10) Eosinophils % (Manual) 12 % (0-3) H Basophils % (Manual) 0 % (0-2) Band Neutrophils 0 % (0-8) Platelet Estimate Decreased L Platelet Morphology Normal Polychromasia Occasional Hypochromasia 1+ Anisocytosis 2+ Prothrombin Time 15.1 SEC (9.30-11.50) H Prothromb Time International Ratio 1.5 (0.9-1.1) H Activated Partial Thromboplast Time 55 SEC (23-33) H Fibrinogen 358 mg/dL (200-400) Fibrin Degradation Products, Quant Pending Sodium Level 134 mEQ/L (135-145) L Potassium Level 3.9 mEQ/L (3.4-4.9) Chloride Level 97 mEQ/L (98-107) L Carbon Dioxide Level 19 mEQ/L (20-30) L Anion Gap 18 (5-15) H Blood Urea Nitrogen 30 mg/dL (7-23) H Creatinine 3.5 mg/dL (0.7-1.2) H Estimat Glomerular Filtration Rate mL/min (>60) Glucose Level 59 mg/dL (74-106) L Calcium Level 8.7 mg/dL (8.6-10.2) Phosphorus Level 4.0 mg/dL (2.5-4.8) Troponin I < 0.30 ng/mL (<=0.30) EMMETT MAURER M.D. Feb 21, 2016 19:13
[2016-02-21] MEDS: Amiodarone 200mg tab ORAL SCH (20:48)
[2016-02-21] MEDS: TraZODone HCl 25 mg tablet ORAL SCH (20:48)
[2016-02-22] VITALS (87 sets, daily range): BP systolic 70–130; BP diastolic 33–87
[2016-02-22] MEDS: Norepinephrine Bitartrate 8 MG in D5W 500ml 500 ML IV SCH ×4 (00:58→23:57)
[2016-02-22] MEDS: DuoNeb 0.5-3(2.5)mg/3ml neb HHN SCH ×6 (03:13→23:06)
[2016-02-22] MEDS: NovoLOG Insulin Flexpen SUBQ SCH ×5 (05:45→23:55)
[2016-02-22] MEDS ORDERED: Heparin Sod 1000 units/ml 10ml IV PRN (06:00)
[2016-02-22 07:58] LABS: MEAN CORPUSCULAR VOLUME 97 FL (80-99); MEAN PLATELET VOLUME 5.7 FL (6.5-10.1); PLATELET COUNT 25 K/UL (150-450); RED BLOOD COUNT 3.59 M/UL (4.70-6.10); RED CELL DISTRIBUTION WIDTH 23.3 % (11.6-14.8); WHITE BLOOD COUNT 11.5 K/UL (4.8-10.8)
[2016-02-22 08:02] LABS: ALANINE AMINOTRANSFERASE 9 U/L (3-41); ALBUMIN/GLOBULIN RATIO 0.6 (1.0-2.7); ANION GAP 16 (5-15); ASPARTATE AMINO TRANSFERASE 30 U/L (5-40); CALCIUM 8.4 mg/dL (8.6-10.2); CARBON DIOXIDE 22 mEQ/L (20-30); CHLORIDE 92 mEQ/L (98-107); CREATININE 2.7 mg/dL (0.7-1.2); HEMOLYSIS 9; PHOSPHORUS 4.1 mg/dL (2.5-4.8); POTASSIUM 3.7 mEQ/L (3.4-4.9); SODIUM 130 mEQ/L (135-145); TOTAL PROTEIN 6.6 g/dL (6.6-8.7)
[2016-02-22 08:14] LABS: BILIRUBIN,DIRECT 0.6 mg/dL (0.1-0.3)
[2016-02-22] MEDS: Aspirin Baby 81mg ORAL SCH (09:00)
[2016-02-22] MEDS: Miralax 17gm pkt ORAL SCH (09:00)
[2016-02-22] MEDS: Docusate 100mg cap ORAL SCH (09:00)
[2016-02-22] MEDS: Pantoprazole Inj IVP SCH ×2 (10:14→21:22)
[2016-02-22 12:10] LABS: BAND NEUTROPHILS % (MANUAL) 3 % (0-8); BASOPHILS % (MANUAL) 0 % (0-2); EOSINOPHILS % (MANUAL) 12 % (0-3); LYMPHOCYTES % (MANUAL) 4 % (20-45); NEUTROPHILS % (MANUAL) 77 % (45-75); PLATELET ESTIMATE DECREASED; PLATELET MORPHOLOGY NORMAL; TOTAL CELLS COUNTED 100
[2016-02-22 12:11] LABS: ANISOCYTOSIS 2+; HYPOCHROMASIA 2+
--- NOTE | 2016-02-22 12:30 | Pulmonolgy Critical Care Note ---
Critical Care - Asmt/Plan Problems: (1) Respiratory failure (2) Severe sepsis (3) Hypotension (4) A-fib (5) COPD (chronic obstructive pulmonary disease) (6) Ischemic cardiomyopathy (7) Presence of biventricular AICD (8) ESRD (end stage renal disease) on dialysis Respiratory: monitor respiratory rate, CXR, other Cardiac: continue pressors, continue to monitor HR/BP Renal: F/U I&O, check electrolytes - HD by respite provider, other - dialyzed yesterday and today Infectious Disease: check cultures Gastrointestinal: hold feedings, other - swallow evaluation pending Endocrine: continue sliding scale insulin Hematologic: transfuse if hgb<8.5 Neurologic: PRN Ativan, keep patient comfortable Affect: PRN ativan Prophylaxis: Protonix Disposition: keep in ICU Notes 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 Discussed with: nurses, consultants, 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 - Objective Last 24 Hour Vital Signs Date Time Temp Pulse Resp B/P Pulse Ox O2 Delivery O2 Flow Rate FiO2 02/22/16 11:12 70 20 97 Venturi Mask 55 02/22/16 11:12 70 18 96 Venturi Mask 55 02/22/16 11:12 55 02/22/16 11:00 70 19 92/49 90 Venturi Mask 35 02/22/16 10:45 70 21 87/54 90 Venturi Mask 35 02/22/16 10:30 70 22 90/40 90 Venturi Mask 35 02/22/16 10:15 70 23 90/63 92 Venturi Mask 35 02/22/16 10:00 70 23 95/47 92 Venturi Mask 35 02/22/16 09:45 70 22 98/45 92 Venturi Mask 35 02/22/16 09:30 70 25 107/54 94 Venturi Mask 35 02/22/16 09:15 72 26 103/47 94 Bi-pap 35 02/22/16 09:00 70 25 88/48 94 Bi-pap 35 02/22/16 09:00 88/69 02/22/16 08:45 70 25 99/48 94 Bi-pap 35 02/22/16 08:30 97.0 70 23 110/50 94 Bi-pap 35 02/22/16 08:30 70 25 106/44 93 Bi-pap 35 02/22/16 08:30 Bi-pap 35 02/22/16 08:15 70 25 90/53 94 Bi-pap 35 02/22/16 08:00 35 02/22/16 08:00 96.8 70 23 88/40 94 Bi-pap 35 02/22/16 08:00 70 02/22/16 07:45 70 24 94/46 94 Bi-pap 35 02/22/16 07:37 70 20 95 Bi-pap 35 02/22/16 07:37 70 20 95 Full Face 35 02/22/16 07:37 70 20 95 Bi-pap 35 02/22/16 07:37 35 02/22/16 07:37 95 Bi-pap 35 02/22/16 07:30 70 24 88/44 92 Bi-pap 35 02/22/16 07:15 70 24 82/39 92 Bi-pap 35 02/22/16 07:00 70 27 82/50 94 Bi-pap 35 02/22/16 07:00 82/46 02/22/16 06:45 70 27 82/50 94 Bi-pap 35 02/22/16 06:30 70 24 82/40 94 Bi-pap 35 02/22/16 06:15 70 22 82/50 94 Bi-pap 35 02/22/16 06:00 82/46 02/22/16 05:45 70 16 70/53 94 Bi-pap 35 02/22/16 05:30 70 16 101/50 94 Bi-pap 35 02/22/16 05:29 70 25 100 Full Face 35 02/22/16 05:15 70 16 91/54 94 Bi-pap 35 02/22/16 05:00 Bi-pap 35 02/22/16 05:00 101/57 02/22/16 05:00 97.6 70 16 103/50 94 Bi-pap 35 02/22/16 04:00 70 02/22/16 04:00 106/50 02/22/16 03:27 70 23 100 Bi-pap 35 02/22/16 03:14 35 02/22/16 03:13 70 17 96 Venturi Mask 6.0 35 02/22/16 02:59 98/48 02/22/16 02:45 70 23 98/49 96 Bi-pap 35 02/22/16 02:30 70 25 97/48 97 Bi-pap 35 02/22/16 02:15 70 23 94/77 97 Bi-pap 35 02/22/16 02:00 70 26 89/54 95 Bi-pap 35 02/22/16 02:00 94/46 02/22/16 01:47 70 23 99 Full Face 35 02/22/16 01:45 70 24 92/45 95 Bi-pap 35 02/22/16 01:30 70 25 85/33 96 Bi-pap 35 02/22/16 01:15 70 22 92/55 95 Bi-pap 35 02/22/16 01:00 97/42 02/22/16 01:00 70 25 96/53 95 Bi-pap 35 02/22/16 00:58 70/37 02/22/16 00:45 70 23 92/48 95 Bi-pap 35 02/22/16 00:30 70 26 70/37 95 Bi-pap 35 02/22/16 00:15 70 25 91/51 96 Bi-pap 35 02/22/16 00:00 91/51 02/22/16 00:00 70 02/22/16 00:00 98.8 70 25 91/51 96 Bi-pap 35 02/21/16 23:45 70 26 103/52 98 Bi-pap 35 02/21/16 23:30 70 25 92/65 98 Bi-pap 35 02/21/16 23:16 70 16 99 Full Face 35 02/21/16 23:15 70 23 95/29 92 Bi-pap 35 02/21/16 23:10 70 21 100 Venturi Mask 6.0 35 02/21/16 23:00 70 23 92/40 92 Bi-pap 35 02/21/16 23:00 92/29 02/21/16 22:53 35 02/21/16 22:53 70 22 96 Venturi Mask 6.0 35 02/21/16 22:30 70 23 95/45 92 Venturi Mask 35 02/21/16 22:15 70 23 90/46 92 Venturi Mask 35 02/21/16 22:02 70 02/21/16 22:00 103/56 02/21/16 22:00 70 23 94/76 92 Venturi Mask 35 02/21/16 21:45 70 23 94/51 92 Venturi Mask 35 02/21/16 21:30 70 23 94/55 92 Venturi Mask 35 02/21/16 21:30 70 23 99/55 92 Venturi Mask 35 02/21/16 21:15 70 23 90/48 92 Venturi Mask 35 02/21/16 21:00 70 23 99/49 93 Venturi Mask 35 02/21/16 21:00 94/55 02/21/16 20:45 70 23 90/48 93 Venturi Mask 35 02/21/16 20:30 70 24 103/56 93 Venturi Mask 35 02/21/16 20:15 96.6 70 25 94/56 93 Venturi Mask 35 02/21/16 20:00 102/49 02/21/16 20:00 70 23 94/50 93 Venturi Mask 35 02/21/16 19:45 70 24 94/55 97 Venturi Mask 35 02/21/16 19:30 70 24 100/50 97 Venturi Mask 35 02/21/16 19:15 70 24 100/50 95 Venturi Mask 35 02/21/16 19:04 70 21 100 Venturi Mask 6.0 35 02/21/16 19:00 100/50 02/21/16 19:00 70 24 92/52 95 Venturi Mask 35 02/21/16 18:51 35 02/21/16 18:51 70 16 96 Venturi Mask 6.0 35 02/21/16 18:50 Venturi Mask 6.0 35 02/21/16 18:50 96 Venturi Mask 6.0 35 02/21/16 18:45 70 22 92/54 95 Venturi Mask 35 02/21/16 18:30 70 26 99/53 95 Venturi Mask 35 02/21/16 18:15 70 24 99/53 95 Venturi Mask 35 02/21/16 18:00 70 18 96/56 95 Venturi Mask 35 02/21/16 17:51 92/43 02/21/16 17:50 92/43 02/21/16 17:45 70 25 92/43 95 Venturi Mask 35 02/21/16 17:30 70 25 95/50 95 Venturi Mask 35 02/21/16 17:15 70 26 95/50 95 Venturi Mask 35 02/21/16 17:00 70 23 85/51 98 Venturi Mask 35 02/21/16 17:00 85/51 02/21/16 16:45 70 24 78/48 99 Venturi Mask 35 02/21/16 16:30 70 24 90/55 100 Venturi Mask 35 02/21/16 16:15 70 23 90/55 100 Venturi Mask 35 02/21/16 16:00 96.5 70 22 114/44 98 Venturi Mask 35 02/21/16 16:00 114/44 02/21/16 16:00 70 02/21/16 15:45 70 23 89/51 100 Venturi Mask 35 02/21/16 15:31 70 23 100 Venturi Mask 6.0 35 02/21/16 15:30 70 23 89/51 100 Venturi Mask 35 02/21/16 15:20 35 02/21/16 15:20 70 22 99 Venturi Mask 6.0 35 02/21/16 15:15 70 23 89/51 100 Venturi Mask 35 02/21/16 15:00 70 24 80/55 98 Venturi Mask 35 02/21/16 14:45 70 22 94/61 97 Venturi Mask 35 02/21/16 14:30 70 22 98/73 97 Venturi Mask 35 02/21/16 14:15 70 22 89/56 97 Venturi Mask 35 02/21/16 14:00 70 24 99/78 97 Venturi Mask 35 02/21/16 13:53 Venturi Mask 6.0 35 02/21/16 13:45 70 21 87/51 97 Venturi Mask 35 02/21/16 13:30 70 24 85/54 97 Venturi Mask 35 02/21/16 13:15 70 24 88/43 97 Venturi Mask 35 02/21/16 13:00 70 22 101/45 96 Venturi Mask 35 02/21/16 12:45 70 24 100/58 95 Venturi Mask 35 02/21/16 12:30 70 24 95/66 95 Venturi Mask 35 Status: somnolent Condition: critical HEENT: atraumatic Neck: full ROM Lungs: clear Heart: HR/BP stable Abdomen: soft Decubiti: location Micro: Microbiology Date/Time Source Procedure Growth Status 02/20/16 13:37 Blood Blood Culture - Preliminary NO GROWTH AFTER 24 HOURS Resulted 02/20/16 13:14 Blood Blood Culture - Preliminary NO GROWTH AFTER 24 HOURS Resulted 02/20/16 15:43 Nasal Not Otherwise Specified MRSA Culture - Final NO METHICILLIN RESISTANT STAPH AUREUS... Complete 02/20/16 15:30 Urine,Clean Catch Urine Culture - Preliminary YEAST Gram Negative Bacillus 1 Resulted 02/20/16 15:43 Rectum VRE Culture - Final Enterococcus Faecium - Vre Complete Accucheck: 71 Critical Care - Subjective ROS Limited/Unobtainable: Yes ICU Day: 3 Intubation Day: self extubated yesterday Interval Events: Covering for Dr. Marin 75 year old with with PMH of ischemic CM (EF 15%), CAD, a fib, HTN, COPD, DM 2 , HLD, ESRD on HD 4x/w, PVD and TTP sent to ED for hypotension with SBP of 80s and acute desaturation In ED, SBP in 50s and pt started on pressors, and in hypoxic resp failure, hence intubated and tx to ICU. 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 He is lethargic right now. Had also a V/Q scan which was basically useless. FI02: 55 Vent Support Breath Rate: 20 Vent Support Mode: AC Vent Tidal Volume: 550 Sputum Amount: Small PEEP: 5.0 PIP: 25 Drips: Levophed 14 ug I&O: Intake and Output 02/21/16 02/22/16 19:00 07:00 Intake Total 1000.57 ml 887.80 ml Output Total 1223 ml 90 ml Balance -222.43 ml 797.80 ml Intake IV Total 1000.57 ml 887.80 ml Output Urine Total 23 ml 90 ml Hemodialysis UF 1200 ml CXR: cxr 1/2 pulmonary edema, right effusion ET-Tube: 7.5 ET Position: 24 Labs: Laboratory Tests Test 02/22/16 04:00 White Blood Count 11.5 K/UL (4.8-10.8) H Red Blood Count 3.59 M/UL (4.70-6.10) L Hemoglobin 10.4 G/DL (14.2-18.0) L Hematocrit 34.7 % (42.0-52.0) L Mean Corpuscular Volume 97 FL (80-99) Mean Corpuscular Hemoglobin 29.0 PG (27.0-31.0) Mean Corpuscular Hemoglobin Concent 30.0 G/DL (32.0-36.0) L Red Cell Distribution Width 23.3 % (11.6-14.8) H Platelet Count 25 K/UL (150-450) L Mean Platelet Volume 5.7 FL (6.5-10.1) L Neutrophils (%) (Auto) % (45.0-75.0) Lymphocytes (%) (Auto) % (20.0-45.0) Monocytes (%) (Auto) % (1.0-10.0) Eosinophils (%) (Auto) % (0.0-3.0) Basophils (%) (Auto) % (0.0-2.0) Differential Total Cells Counted 100 Neutrophils % (Manual) 77 % (45-75) H Lymphocytes % (Manual) 4 % (20-45) L Monocytes % (Manual) 4 % (1-10) Eosinophils % (Manual) 12 % (0-3) H Basophils % (Manual) 0 % (0-2) Band Neutrophils 3 % (0-8) Platelet Estimate Decreased L Platelet Morphology Normal Hypochromasia 2+ Anisocytosis 2+ Sodium Level 130 mEQ/L (135-145) L Potassium Level 3.7 mEQ/L (3.4-4.9) Chloride Level 92 mEQ/L (98-107) L Carbon Dioxide Level 22 mEQ/L (20-30) Anion Gap 16 (5-15) H Blood Urea Nitrogen 22 mg/dL (7-23) Creatinine 2.7 mg/dL (0.7-1.2) H Estimat Glomerular Filtration Rate mL/min (>60) Glucose Level 91 mg/dL (74-106) Calcium Level 8.4 mg/dL (8.6-10.2) L Phosphorus Level 4.1 mg/dL (2.5-4.8) Total Bilirubin 1.3 mg/dL (0.0-1.2) H Direct Bilirubin 0.6 mg/dL (0.1-0.3) H Aspartate Amino Transf (AST/SGOT) 30 U/L (5-40) Alanine Aminotransferase (ALT/SGPT) 9 U/L (3-41) Alkaline Phosphatase 150 U/L (40-129) H Total Protein 6.6 g/dL (6.6-8.7) Albumin 2.6 g/dL (3.5-5.2) L Globulin 4.0 g/dL Albumin/Globulin Ratio 0.6 (1.0-2.7) L JOSE LUIS ATKINS Feb 22, 2016 12:30
--- NOTE | 2016-02-22 14:37 | Nephrology Progress Note ---
Assessment/Plan Problem List: (1) CAD (coronary artery disease) (2) Ischemic cardiomyopathy (3) COPD (chronic obstructive pulmonary disease) (4) Encephalopathy (5) PVD (peripheral vascular disease) (6) DM type 2 (diabetes mellitus, type 2) (7) Hypoxia (8) Septic shock (9) Pulmonary edema (10) Respiratory failure (11) ESRD (end stage renal disease) on dialysis (12) Hypotension Assessment hd today, gradual fluid removal, chronic low bp, gradual uf for chf, monitor cxr labs Subjective ROS Limited/Unobtainable: Yes Objective Objective Last 24 Hour Vital Signs Date Time Temp Pulse Resp B/P Pulse Ox O2 Delivery O2 Flow Rate FiO2 02/22/16 12:34 70 02/22/16 12:30 70 21 88/49 92 Venturi Mask 35 02/22/16 12:15 70 21 97/55 92 Venturi Mask 35 02/22/16 12:00 96.2 70 20 89/48 93 Venturi Mask 35 02/22/16 11:45 70 21 93/43 92 Venturi Mask 35 02/22/16 11:30 70 21 92/45 93 Venturi Mask 35 02/22/16 11:15 70 21 89/48 97 Venturi Mask 35 02/22/16 11:12 70 20 97 Venturi Mask 55 02/22/16 11:12 70 18 96 Venturi Mask 55 02/22/16 11:12 55 02/22/16 11:00 70 19 92/49 90 Venturi Mask 35 02/22/16 10:45 70 21 87/54 90 Venturi Mask 35 02/22/16 10:30 70 22 90/40 90 Venturi Mask 35 02/22/16 10:15 70 23 90/63 92 Venturi Mask 35 02/22/16 10:00 70 23 95/47 92 Venturi Mask 35 02/22/16 09:45 70 22 98/45 92 Venturi Mask 35 02/22/16 09:30 70 25 107/54 94 Venturi Mask 35 02/22/16 09:15 72 26 103/47 94 Bi-pap 35 02/22/16 09:00 70 25 88/48 94 Bi-pap 35 02/22/16 09:00 88/69 02/22/16 08:45 70 25 99/48 94 Bi-pap 35 02/22/16 08:30 97.0 70 23 110/50 94 Bi-pap 35 02/22/16 08:30 70 25 106/44 93 Bi-pap 35 02/22/16 08:30 Bi-pap 35 02/22/16 08:15 70 25 90/53 94 Bi-pap 35 02/22/16 08:00 35 02/22/16 08:00 96.8 70 23 88/40 94 Bi-pap 35 02/22/16 08:00 70 02/22/16 07:45 70 24 94/46 94 Bi-pap 35 02/22/16 07:37 70 20 95 Bi-pap 35 02/22/16 07:37 70 20 95 Full Face 35 02/22/16 07:37 70 20 95 Bi-pap 35 02/22/16 07:37 35 02/22/16 07:37 95 Bi-pap 35 02/22/16 07:30 70 24 88/44 92 Bi-pap 35 02/22/16 07:15 70 24 82/39 92 Bi-pap 35 02/22/16 07:00 70 27 82/50 94 Bi-pap 35 02/22/16 07:00 82/46 02/22/16 06:45 70 27 82/50 94 Bi-pap 35 02/22/16 06:30 70 24 82/40 94 Bi-pap 35 02/22/16 06:15 70 22 82/50 94 Bi-pap 35 02/22/16 06:00 82/46 02/22/16 05:45 70 16 70/53 94 Bi-pap 35 02/22/16 05:30 70 16 101/50 94 Bi-pap 35 02/22/16 05:29 70 25 100 Full Face 35 02/22/16 05:15 70 16 91/54 94 Bi-pap 35 02/22/16 05:00 Bi-pap 35 02/22/16 05:00 101/57 02/22/16 05:00 97.6 70 16 103/50 94 Bi-pap 35 02/22/16 04:00 70 02/22/16 04:00 106/50 02/22/16 03:27 70 23 100 Bi-pap 35 02/22/16 03:14 35 02/22/16 03:13 70 17 96 Venturi Mask 6.0 35 02/22/16 02:59 98/48 02/22/16 02:45 70 23 98/49 96 Bi-pap 35 02/22/16 02:30 70 25 97/48 97 Bi-pap 35 02/22/16 02:15 70 23 94/77 97 Bi-pap 35 02/22/16 02:00 70 26 89/54 95 Bi-pap 35 02/22/16 02:00 94/46 02/22/16 01:47 70 23 99 Full Face 35 02/22/16 01:45 70 24 92/45 95 Bi-pap 35 02/22/16 01:30 70 25 85/33 96 Bi-pap 35 02/22/16 01:15 70 22 92/55 95 Bi-pap 35 02/22/16 01:00 97/42 02/22/16 01:00 70 25 96/53 95 Bi-pap 35 02/22/16 00:58 70/37 02/22/16 00:45 70 23 92/48 95 Bi-pap 35 02/22/16 00:30 70 26 70/37 95 Bi-pap 35 02/22/16 00:15 70 25 91/51 96 Bi-pap 35 02/22/16 00:00 91/51 02/22/16 00:00 70 02/22/16 00:00 98.8 70 25 91/51 96 Bi-pap 35 02/21/16 23:45 70 26 103/52 98 Bi-pap 35 02/21/16 23:30 70 25 92/65 98 Bi-pap 35 02/21/16 23:16 70 16 99 Full Face 35 02/21/16 23:15 70 23 95/29 92 Bi-pap 35 02/21/16 23:10 70 21 100 Venturi Mask 6.0 35 02/21/16 23:00 70 23 92/40 92 Bi-pap 35 02/21/16 23:00 92/29 02/21/16 22:53 35 02/21/16 22:53 70 22 96 Venturi Mask 6.0 35 02/21/16 22:30 70 23 95/45 92 Venturi Mask 35 02/21/16 22:15 70 23 90/46 92 Venturi Mask 35 02/21/16 22:02 70 02/21/16 22:00 103/56 02/21/16 22:00 70 23 94/76 92 Venturi Mask 35 02/21/16 21:45 70 23 94/51 92 Venturi Mask 35 02/21/16 21:30 70 23 94/55 92 Venturi Mask 35 02/21/16 21:30 70 23 99/55 92 Venturi Mask 35 02/21/16 21:15 70 23 90/48 92 Venturi Mask 35 02/21/16 21:00 70 23 99/49 93 Venturi Mask 35 02/21/16 21:00 94/55 02/21/16 20:45 70 23 90/48 93 Venturi Mask 35 02/21/16 20:30 70 24 103/56 93 Venturi Mask 35 02/21/16 20:15 96.6 70 25 94/56 93 Venturi Mask 35 02/21/16 20:00 102/49 02/21/16 20:00 70 23 94/50 93 Venturi Mask 35 02/21/16 19:45 70 24 94/55 97 Venturi Mask 35 02/21/16 19:30 70 24 100/50 97 Venturi Mask 35 02/21/16 19:15 70 24 100/50 95 Venturi Mask 35 02/21/16 19:04 70 21 100 Venturi Mask 6.0 35 02/21/16 19:00 100/50 02/21/16 19:00 70 24 92/52 95 Venturi Mask 35 02/21/16 18:51 35 02/21/16 18:51 70 16 96 Venturi Mask 6.0 35 02/21/16 18:50 Venturi Mask 6.0 35 02/21/16 18:50 96 Venturi Mask 6.0 35 02/21/16 18:45 70 22 92/54 95 Venturi Mask 35 02/21/16 18:30 70 26 99/53 95 Venturi Mask 35 02/21/16 18:15 70 24 99/53 95 Venturi Mask 35 02/21/16 18:00 70 18 96/56 95 Venturi Mask 35 02/21/16 17:51 92/43 02/21/16 17:50 92/43 02/21/16 17:45 70 25 92/43 95 Venturi Mask 35 02/21/16 17:30 70 25 95/50 95 Venturi Mask 35 02/21/16 17:15 70 26 95/50 95 Venturi Mask 35 02/21/16 17:00 70 23 85/51 98 Venturi Mask 35 02/21/16 17:00 85/51 02/21/16 16:45 70 24 78/48 99 Venturi Mask 35 02/21/16 16:30 70 24 90/55 100 Venturi Mask 35 02/21/16 16:15 70 23 90/55 100 Venturi Mask 35 02/21/16 16:00 96.5 70 22 114/44 98 Venturi Mask 35 02/21/16 16:00 114/44 02/21/16 16:00 70 02/21/16 15:45 70 23 89/51 100 Venturi Mask 35 02/21/16 15:31 70 23 100 Venturi Mask 6.0 35 02/21/16 15:30 70 23 89/51 100 Venturi Mask 35 02/21/16 15:20 35 02/21/16 15:20 70 22 99 Venturi Mask 6.0 35 02/21/16 15:15 70 23 89/51 100 Venturi Mask 35 02/21/16 15:00 70 24 80/55 98 Venturi Mask 35 02/21/16 14:45 70 22 94/61 97 Venturi Mask 35 Intake and Output 02/21/16 02/22/16 19:00 07:00 Intake Total 1000.57 ml 887.80 ml Output Total 1223 ml 90 ml Balance -222.43 ml 797.80 ml Intake IV Total 1000.57 ml 887.80 ml Output Urine Total 23 ml 90 ml Hemodialysis UF 1200 ml Laboratory Tests 02/22/16 04:00: White Blood Count 11.5H, Red Blood Count 3.59L, Hemoglobin 10.4L, Hematocrit 34.7L, Mean Corpuscular Volume 97, Mean Corpuscular Hemoglobin 29.0, Mean Corpuscular Hemoglobin Concent 30.0L, Red Cell Distribution Width 23.3H, Platelet Count 25L, Mean Platelet Volume 5.7L, Neutrophils (%) (Auto) , Lymphocytes (%) (Auto) , Monocytes (%) (Auto) , Eosinophils (%) (Auto) , Basophils (%) (Auto) , Differential Total Cells Counted 100, Neutrophils % ( Manual) 77H, Lymphocytes % (Manual) 4L, Monocytes % (Manual) 4, Eosinophils % ( Manual) 12H, Basophils % (Manual) 0, Band Neutrophils 3, Platelet Estimate DecreasedL, Platelet Morphology Normal, Hypochromasia 2+, Anisocytosis 2+, Sodium Level 130L, Potassium Level 3.7, Chloride Level 92L, Carbon Dioxide Level 22, Anion Gap 16H, Blood Urea Nitrogen 22, Creatinine 2.7H, Estimat Glomerular Filtration Rate , Glucose Level 91, Calcium Level 8.4L, Phosphorus Level 4.1, Total Bilirubin 1.3H, Direct Bilirubin 0.6H, Aspartate Amino Transf ( AST/SGOT) 30, Alanine Aminotransferase (ALT/SGPT) 9, Alkaline Phosphatase 150H, Total Protein 6.6, Albumin 2.6L, Globulin 4.0, Albumin/Globulin Ratio 0.6L Height (Feet): 5 Height (Inches): 4.00 Weight (Pounds): 145 General Appearance: lethargic EENT: normal ENT inspection Neck: normal alignment Cardiovascular: normal rate, regular rhythm Respiratory/Chest: rhonchi - bilaterally Abdomen: non tender Extremities: trace edema Neurologic: unresponsive ARNALDO MARTÍNEZ Feb 22, 2016 14:37
--- NOTE | 2016-02-22 15:19 | Cardiology Report ---
APPROVED REPORT EKG Measurement Heart [id number] AV sequential BIV pacing Abnormal ECG
[2016-02-22] MEDS: Azithromycin 500 MG in NS 250 ML IV SCH (16:28)
[2016-02-22] MEDS ORDERED: Norepinephrine Bitartrate 8 MG in D5W 500ml 500 ML IV SCH (17:00)
[2016-02-22] MEDS ORDERED: NS 275ml ONE (17:06)
[2016-02-22] MEDS ORDERED: Tubing IV Secondary IV ONE (17:06)
--- NOTE | 2016-02-22 19:13 | General Progress Note ---
Assessment/Plan Problem List: (1) Pulmonary edema ICD Codes: J81.1 - Chronic pulmonary edema SNOMED: 27276150 Qualifiers: Qualified Codes: J81.0 - Acute pulmonary edema (2) Hypotension ICD Codes: I95.9 - Hypotension, unspecified SNOMED: 55071738 Qualifiers: Qualified Codes: I95.89 - Other hypotension (3) Pneumonia ICD Codes: J18.9 - Pneumonia, unspecified organism SNOMED: 871340999 Qualifiers: Qualified Codes: J18.9 - Pneumonia, unspecified organism (4) ESRD (end stage renal disease) on dialysis ICD Codes: N18.6 - End stage renal disease; Z99.2 - Dependence on renal dialysis SNOMED: 585628843 (5) Respiratory failure ICD Codes: J96.90 - Respiratory failure, unspecified, unspecified whether with hypoxia or hypercapnia SNOMED: 531148104 Qualifiers: Qualified Codes: J96.01 - Acute respiratory failure with hypoxia; J96.02 - Acute respiratory failure with hypercapnia (6) Hypoxia ICD Codes: R09.02 - Hypoxemia SNOMED: 78005239, 083154479 (7) CAD (coronary artery disease) ICD Codes: I25.10 - Atherosclerotic heart disease of [place] coronary artery without angina pectoris SNOMED: 08565969 (8) Ischemic cardiomyopathy ICD Codes: I25.5 - Ischemic cardiomyopathy SNOMED: 906312600 (9) COPD (chronic obstructive pulmonary disease) ICD Codes: J44.9 - Chronic obstructive pulmonary disease, unspecified SNOMED: 42202887 (10) Thrombocytopenia ICD Codes: D69.6 - Thrombocytopenia, unspecified SNOMED: 351200339 (11) Encephalopathy ICD Codes: G93.40 - Encephalopathy, unspecified SNOMED: 65875935, 483120358 (12) PVD (peripheral vascular disease) ICD Codes: I73.9 - Peripheral vascular disease, unspecified SNOMED: 279353616 (13) A-fib ICD Codes: I48.91 - Unspecified atrial fibrillation SNOMED: 19443878 (14) HTN (hypertension) ICD Codes: I10 - Essential (primary) hypertension SNOMED: 19847733 (15) DM type 2 (diabetes mellitus, type 2) ICD Codes: E11.9 - Type 2 diabetes mellitus without complications SNOMED: 37846997 (16) HLD (hyperlipidemia) ICD Codes: E78.5 - Hyperlipidemia, unspecified SNOMED: 31371865 (17) Septic shock ICD Codes: A41.9 - Sepsis, unspecified organism; R65.21 - Severe sepsis with septic shock SNOMED: 00427084 Assessment/Plan Pt admitted to ICU intubated for ventilatory support for acute hypoxic respiratory failure. Now extubated and on venturi mask Dr. Marin of pulm crit conslted; appreciate involvement Dr. Keita of cards c/s'd, appreciate involvement cont atc duo nebs Zosyn, vanc and azithromycin, HCAP v CAP Dr. Mcnamara of Nephrology c/s'd; resumed HD cont home meds hold eliquis and pharm dvt ppx; scd only f/u DIC panel--D dimer high Subjective Date patient seen: Feb 22, 2016 Time patient seen: 19:12 Allergies: Coded Allergies: No Known Allergies (Unverified , 02/20/16) Subjective no acute events o/n; pt still on pressors; doing well s/p extubation Objective Last 24 Hour Vital Signs Date Time Temp Pulse Resp B/P Pulse Ox O2 Delivery O2 Flow Rate FiO2 02/22/16 19:00 70 19 93/62 94 Venturi Mask 35 02/22/16 18:45 70 19 93/52 93 Venturi Mask 35 02/22/16 18:30 70 19 91/55 93 Venturi Mask 35 02/22/16 18:15 73 19 79/53 93 Venturi Mask 35 02/22/16 18:00 74 19 79/49 92 Venturi Mask 35 02/22/16 17:45 72 19 86/49 91 Venturi Mask 35 02/22/16 17:43 70/53 02/22/16 17:30 70 18 70/53 91 Venturi Mask 35 02/22/16 17:15 70 18 81/46 91 Venturi Mask 35 02/22/16 17:00 70 17 85/46 91 Venturi Mask 35 02/22/16 16:45 70 17 84/44 91 Venturi Mask 35 02/22/16 16:30 70 16 81/41 92 Venturi Mask 35 02/22/16 16:15 70 16 81/40 90 Venturi Mask 35 02/22/16 16:00 97.1 70 16 83/42 92 Venturi Mask 35 02/22/16 16:00 70 02/22/16 15:45 70 16 90/47 99 Venturi Mask 35 02/22/16 15:30 70 18 85/41 99 Venturi Mask 35 02/22/16 15:15 70 18 80/43 99 Venturi Mask 35 02/22/16 15:00 70 19 84/47 90 Venturi Mask 35 02/22/16 14:58 70 18 96 Venturi Mask 35 02/22/16 14:58 55 02/22/16 14:58 70 18 98 Venturi Mask 35 02/22/16 14:45 70 20 85/45 90 Venturi Mask 35 02/22/16 14:30 70 20 101/43 91 Venturi Mask 35 02/22/16 14:15 70 23 98/49 92 Venturi Mask 35 02/22/16 14:00 70 22 89/48 91 Venturi Mask 35 02/22/16 13:45 70 22 91/47 91 Venturi Mask 35 02/22/16 13:30 70 22 94/46 91 Venturi Mask 35 02/22/16 13:15 70 21 95/52 91 Venturi Mask 35 02/22/16 13:00 70 21 93/52 91 Venturi Mask 35 02/22/16 12:45 70 21 94/43 91 Venturi Mask 35 02/22/16 12:34 70 02/22/16 12:30 70 21 88/49 92 Venturi Mask 35 02/22/16 12:15 70 21 97/55 92 Venturi Mask 35 02/22/16 12:00 96.2 70 20 89/48 93 Venturi Mask 35 02/22/16 11:45 70 21 93/43 92 Venturi Mask 35 02/22/16 11:30 70 21 92/45 93 Venturi Mask 35 02/22/16 11:15 70 21 89/48 97 Venturi Mask 35 02/22/16 11:12 70 20 97 Venturi Mask 55 02/22/16 11:12 70 18 96 Venturi Mask 55 02/22/16 11:12 55 02/22/16 11:00 70 19 92/49 90 Venturi Mask 35 02/22/16 10:45 70 21 87/54 90 Venturi Mask 35 02/22/16 10:30 70 22 90/40 90 Venturi Mask 35 02/22/16 10:15 70 23 90/63 92 Venturi Mask 35 02/22/16 10:00 70 23 95/47 92 Venturi Mask 35 02/22/16 09:45 70 22 98/45 92 Venturi Mask 35 02/22/16 09:30 70 25 107/54 94 Venturi Mask 35 02/22/16 09:15 72 26 103/47 94 Bi-pap 35 02/22/16 09:00 70 25 88/48 94 Bi-pap 35 02/22/16 09:00 88/69 02/22/16 08:45 70 25 99/48 94 Bi-pap 35 02/22/16 08:30 97.0 70 23 110/50 94 Bi-pap 35 02/22/16 08:30 70 25 106/44 93 Bi-pap 35 02/22/16 08:30 Bi-pap 35 02/22/16 08:15 70 25 90/53 94 Bi-pap 35 02/22/16 08:00 35 02/22/16 08:00 96.8 70 23 88/40 94 Bi-pap 35 02/22/16 08:00 70 02/22/16 07:45 70 24 94/46 94 Bi-pap 35 02/22/16 07:37 70 20 95 Bi-pap 35 02/22/16 07:37 70 20 95 Full Face 35 02/22/16 07:37 70 20 95 Bi-pap 35 02/22/16 07:37 35 02/22/16 07:37 95 Bi-pap 35 02/22/16 07:30 70 24 88/44 92 Bi-pap 35 02/22/16 07:15 70 24 82/39 92 Bi-pap 35 02/22/16 07:00 70 27 82/50 94 Bi-pap 35 02/22/16 07:00 82/46 02/22/16 06:45 70 27 82/50 94 Bi-pap 35 02/22/16 06:30 70 24 82/40 94 Bi-pap 35 02/22/16 06:15 70 22 82/50 94 Bi-pap 35 02/22/16 06:00 82/46 02/22/16 05:45 70 16 70/53 94 Bi-pap 35 02/22/16 05:30 70 16 101/50 94 Bi-pap 35 02/22/16 05:29 70 25 100 Full Face 35 02/22/16 05:15 70 16 91/54 94 Bi-pap 35 02/22/16 05:00 Bi-pap 35 02/22/16 05:00 101/57 02/22/16 05:00 97.6 70 16 103/50 94 Bi-pap 35 02/22/16 04:00 70 02/22/16 04:00 106/50 02/22/16 03:27 70 23 100 Bi-pap 35 02/22/16 03:14 35 02/22/16 03:13 70 17 96 Venturi Mask 6.0 35 02/22/16 02:59 98/48 02/22/16 02:45 70 23 98/49 96 Bi-pap 35 02/22/16 02:30 70 25 97/48 97 Bi-pap 35 02/22/16 02:15 70 23 94/77 97 Bi-pap 35 02/22/16 02:00 70 26 89/54 95 Bi-pap 35 02/22/16 02:00 94/46 02/22/16 01:47 70 23 99 Full Face 35 02/22/16 01:45 70 24 92/45 95 Bi-pap 35 02/22/16 01:30 70 25 85/33 96 Bi-pap 35 02/22/16 01:15 70 22 92/55 95 Bi-pap 35 02/22/16 01:00 97/42 02/22/16 01:00 70 25 96/53 95 Bi-pap 35 02/22/16 00:58 70/37 02/22/16 00:45 70 23 92/48 95 Bi-pap 35 02/22/16 00:30 70 26 70/37 95 Bi-pap 35 02/22/16 00:15 70 25 91/51 96 Bi-pap 35 02/22/16 00:00 91/51 02/22/16 00:00 70 02/22/16 00:00 98.8 70 25 91/51 96 Bi-pap 35 02/21/16 23:45 70 26 103/52 98 Bi-pap 35 02/21/16 23:30 70 25 92/65 98 Bi-pap 35 02/21/16 23:16 70 16 99 Full Face 35 02/21/16 23:15 70 23 95/29 92 Bi-pap 35 02/21/16 23:10 70 21 100 Venturi Mask 6.0 35 02/21/16 23:00 70 23 92/40 92 Bi-pap 35 02/21/16 23:00 92/29 02/21/16 22:53 35 02/21/16 22:53 70 22 96 Venturi Mask 6.0 35 02/21/16 22:30 70 23 95/45 92 Venturi Mask 35 02/21/16 22:15 70 23 90/46 92 Venturi Mask 35 02/21/16 22:02 70 02/21/16 22:00 103/56 02/21/16 22:00 70 23 94/76 92 Venturi Mask 35 02/21/16 21:45 70 23 94/51 92 Venturi Mask 35 02/21/16 21:30 70 23 94/55 92 Venturi Mask 35 02/21/16 21:30 70 23 99/55 92 Venturi Mask 35 02/21/16 21:15 70 23 90/48 92 Venturi Mask 35 02/21/16 21:00 70 23 99/49 93 Venturi Mask 35 02/21/16 21:00 94/55 02/21/16 20:45 70 23 90/48 93 Venturi Mask 35 02/21/16 20:30 70 24 103/56 93 Venturi Mask 35 02/21/16 20:15 96.6 70 25 94/56 93 Venturi Mask 35 02/21/16 20:00 102/49 02/21/16 20:00 70 23 94/50 93 Venturi Mask 35 02/21/16 19:45 70 24 94/55 97 Venturi Mask 35 02/21/16 19:30 70 24 100/50 97 Venturi Mask 35 02/21/16 19:15 70 24 100/50 95 Venturi Mask 35 Intake and Output 02/21/16 02/22/16 19:00 07:00 Intake Total 1000.57 ml 887.80 ml Output Total 1223 ml 90 ml Balance -222.43 ml 797.80 ml Intake IV Total 1000.57 ml 887.80 ml Output Urine Total 23 ml 90 ml Hemodialysis UF 1200 ml Laboratory Tests 02/22/16 04:00: White Blood Count 11.5H, Red Blood Count 3.59L, Hemoglobin 10.4L, Hematocrit 34.7L, Mean Corpuscular Volume 97, Mean Corpuscular Hemoglobin 29.0, Mean Corpuscular Hemoglobin Concent 30.0L, Red Cell Distribution Width 23.3H, Platelet Count 25L, Mean Platelet Volume 5.7L, Neutrophils (%) (Auto) , Lymphocytes (%) (Auto) , Monocytes (%) (Auto) , Eosinophils (%) (Auto) , Basophils (%) (Auto) , Differential Total Cells Counted 100, Neutrophils % ( Manual) 77H, Lymphocytes % (Manual) 4L, Monocytes % (Manual) 4, Eosinophils % ( Manual) 12H, Basophils % (Manual) 0, Band Neutrophils 3, Platelet Estimate DecreasedL, Platelet Morphology Normal, Hypochromasia 2+, Anisocytosis 2+, Sodium Level 130L, Potassium Level 3.7, Chloride Level 92L, Carbon Dioxide Level 22, Anion Gap 16H, Blood Urea Nitrogen 22, Creatinine 2.7H, Estimat Glomerular Filtration Rate , Glucose Level 91, Calcium Level 8.4L, Phosphorus Level 4.1, Total Bilirubin 1.3H, Direct Bilirubin 0.6H, Aspartate Amino Transf ( AST/SGOT) 30, Alanine Aminotransferase (ALT/SGPT) 9, Alkaline Phosphatase 150H, Total Protein 6.6, Albumin 2.6L, Globulin 4.0, Albumin/Globulin Ratio 0.6L Height (Feet): 5 Height (Inches): 4.00 Weight (Pounds): 145 Objective General Appearance: no apparent distress, alert, lethargic - but arousable; cachetic Lines, tubes and drains: central line - R EJ, dialysis access - R cath HEENT: normocephalic, atraumatic, anicteric, PERRL, EOMI, no JVD, other - dry mm Neck: non-tender, supple Respiratory/Chest: expiratory wheezing, on vent Cardiovascular/Chest: normal peripheral pulses, normal rate, regular rhythm Abdomen: normal bowel sounds, non tender, soft, no mass Genitourinary/Rectal: leon Extremities: non-tender, normal inspection Skin Exam: warm/dry, other - ecchymoses of LLQ 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 Feb 22, 2016 19:13
[2016-02-22] MEDS: Amiodarone 200mg tab ORAL SCH (20:42)
[2016-02-22] MEDS: TraZODone HCl 25 mg tablet ORAL SCH (20:42)
--- NOTE | 2016-02-22 23:17 | Consultation ---
DATE OF CONSULTATION: 02/22/2016 CARDIOLOGY CONSULTATION ATTENDING PHYSICIAN: Charlene Barnard M.D. REFERRING PHYSICIAN: Charlene Barnard M.D. REASON FOR CONSULTATION: Cardiogenic shock. HISTORY OF PRESENT ILLNESS: The patient is a 75-year-old man with severe cardiomyopathy, status post recent biventricular ICD and recent initiation of hemodialysis, who also has paroxysmal atrial fibrillation, diabetes, hypertension, and coronary artery disease. The patient is taken care of at [facility] under the care of and has been chronically ill for some time. His left ventricular ejection fraction is between 10% to 20%. Over the past two months, per discussion with the daughter, he has had progressive decline in his condition. He was in the hospital recently over concern of an ICD site hematoma that was felt to be stable. He was maximized on his medical therapy and discharged to a rehab facility, however, he progressively worsened and was admitted for respiratory distress. He was intubated and admitted to the intensive care unit. Overnight, he extubated himself and he has been managing on a nonrebreather. The patient's history is limited to what is available in the chart and the daughter and I discussed with DrLambert as the patient is too altered to participate. PAST MEDICAL HISTORY: As mentioned above. ALLERGIES: None. MEDICATIONS: I have reviewed the medication reconciliation form and medication administration record. SOCIAL HISTORY: He lives with his prior to all this. FAMILY HISTORY: Noncontributory. REVIEW OF SYSTEMS: Unobtainable. PHYSICAL EXAMINATION: VITAL SIGNS: Vital signs are noted. His blood pressure is 84/47 on 12 mcg of Levophed. He had just underwent dialysis and had 800 mL taken off. GENERAL: He appears very ill and cachectic and obtunded. HEENT: Normocephalic and atraumatic. NECK: Supple. LUNGS: Coarse breath sounds. CARDIAC: Regular rate. Distant heart sounds. ABDOMEN: Soft and nontender. EXTREMITIES: There is no cyanosis, clubbing, or edema. IMPRESSION AND RECOMMENDATION: 1. Cardiogenic shock. 2. Severe ischemic cardiomyopathy. 3. Paroxysmal atrial fibrillation. 4. Acute on chronic systolic heart failure. 5. End-stage renal disease, on hemodialysis. DISCUSSION: I would continue pressors at this time. We will try to get him back on his cardiac regimen. For now, we will put him on the amiodarone and use hemodialysis for volume control. The daughter seems to understand that it appears that his condition has progressively worsened over the past few weeks and is going to be talking with her mother, which is the patient's about goals of care. Thank you, Dr. Barnard, for allowing me to participate in the care of your patient. Please feel free to contact me with any questions or concerns. Andrade Keita M.D. DR: DOMINICK JOB#: [id number] CC:
[2016-02-23] VITALS (92 sets, daily range): BP systolic 72–120; BP diastolic 1–75
[2016-02-23] MEDS: DuoNeb 0.5-3(2.5)mg/3ml neb HHN SCH ×6 (02:58→22:21)
[2016-02-23 05:39] LABS: MEAN CORPUSCULAR HEMOGLOBIN 29.6 PG (27.0-31.0); MEAN CORPUSCULAR HGB CONC 30.9 G/DL (32.0-36.0); MEAN CORPUSCULAR VOLUME 96 FL (80-99); MEAN PLATELET VOLUME 7.6 FL (6.5-10.1); PLATELET COUNT 18 K/UL (150-450); RED BLOOD COUNT 3.58 M/UL (4.70-6.10); RED CELL DISTRIBUTION WIDTH 24.2 % (11.6-14.8); WHITE BLOOD COUNT 9.9 K/UL (4.8-10.8)
[2016-02-23 05:59] LABS: ANION GAP 13 (5-15); CALCIUM 8.1 mg/dL (8.6-10.2); CARBON DIOXIDE 26 mEQ/L (20-30); CHLORIDE 90 mEQ/L (98-107); CREATININE 2.3 mg/dL (0.7-1.2); HEMOLYSIS 3; PHOSPHORUS 3.6 mg/dL (2.5-4.8); POTASSIUM 3.5 mEQ/L (3.4-4.9); SODIUM 129 mEQ/L (135-145)
[2016-02-23] MEDS: NovoLOG Insulin Flexpen SUBQ SCH ×3 (05:59→17:20)
[2016-02-23 06:04] LABS: ALANINE AMINOTRANSFERASE 9 U/L (3-41); ALBUMIN/GLOBULIN RATIO 0.7 (1.0-2.7); ANION GAP 12 (5-15); ASPARTATE AMINO TRANSFERASE 27 U/L (5-40); CALCIUM 8.2 mg/dL (8.6-10.2); CARBON DIOXIDE 27 mEQ/L (20-30); CHLORIDE 91 mEQ/L (98-107); CREATININE 2.4 mg/dL (0.7-1.2); HEMOLYSIS 2; MAGNESIUM 1.9 mg/dL (1.7-2.5); PHOSPHORUS 3.6 mg/dL (2.5-4.8); POTASSIUM 3.5 mEQ/L (3.4-4.9); SODIUM 130 mEQ/L (135-145); TOTAL PROTEIN 6.7 g/dL (6.6-8.7)
[2016-02-23] MEDS ORDERED: Levophed 4mg/4mL Inj IV ONE (06:16)
[2016-02-23 06:21] LABS: BILIRUBIN,DIRECT 0.7 mg/dL (0.1-0.3)
[2016-02-23] MEDS: Norepinephrine Bitartrate 8 MG in D5W 500ml 500 ML IV SCH ×3 (06:26→21:34)
[2016-02-23] MEDS: Docusate 100mg cap ORAL SCH (09:00)
[2016-02-23] MEDS: Miralax 17gm pkt ORAL SCH (09:00)
[2016-02-23] MEDS: Aspirin Baby 81mg ORAL SCH (09:00)
[2016-02-23] MEDS: Pantoprazole Inj IVP SCH ×2 (09:32→20:34)
[2016-02-23 09:52] LABS: ABG ALLEN TEST POSITIVE; ABG BASE EXCESS 2.7; ABG PCO2 48.7 mmHg (35.0-45.0)
[2016-02-23 10:02] LABS: ANISOCYTOSIS 2+; BAND NEUTROPHILS % (MANUAL) 4 % (0-8); BASOPHILS % (MANUAL) 1 % (0-2); EOSINOPHILS % (MANUAL) 18 % (0-3); HYPOCHROMASIA 1+; LYMPHOCYTES % (MANUAL) 4 % (20-45); NEUTROPHILS % (MANUAL) 65 % (45-75); PLATELET ESTIMATE DECREASED; PLATELET MORPHOLOGY NORMAL; TOTAL CELLS COUNTED 100
[2016-02-23 10:03] LABS: BURR CELLS OCCASIONAL
--- NOTE | 2016-02-23 11:29 | Pulmonolgy Critical Care Note ---
Critical Care - Asmt/Plan Problems: (1) Respiratory failure (2) Severe sepsis (3) Hypotension (4) A-fib (5) COPD (chronic obstructive pulmonary disease) (6) Ischemic cardiomyopathy (7) Presence of biventricular AICD (8) ESRD (end stage renal disease) on dialysis Respiratory: monitor respiratory rate, adjust FIO2, CXR Cardiac: continue to monitor HR/BP Renal: F/U I&O, check electrolytes, other - HD today, 1500 cc rmoved Infectious Disease: check cultures Gastrointestinal: continue feedings/current rate Endocrine: monitor blood sugar, continue sliding scale insulin Hematologic: monitor H/H, transfuse if hgb<8.5 Neurologic: PRN Ativan, PRN Morphine, keep patient comfortable Affect: PRN ativan Prophylaxis: Protonix Notes Reviewed: marketing senior recruiter, cardio Discussed with: nurses, case linermedical practice manager - Objective Last 24 Hour Vital Signs Date Time Temp Pulse Resp B/P Pulse Ox O2 Delivery O2 Flow Rate FiO2 02/23/16 11:20 70 28 90 Facial 6.0 35 02/23/16 11:18 35 02/23/16 11:18 70 25 96 Bi-pap 6.0 35 02/23/16 09:45 70 105/49 Bi-pap 35 02/23/16 09:30 70 103/57 Bi-pap 35 02/23/16 09:15 70 106/55 Bi-pap 35 02/23/16 09:00 70 102/58 Bi-pap 35 02/23/16 08:45 70 104/75 Bi-pap 35 02/23/16 08:40 70 25 90 Facial 6.0 35 02/23/16 08:40 Bi-pap 35 02/23/16 08:40 96.0 70 109/51 Bi-pap 35 02/23/16 08:30 70 109/51 Bi-pap 35 02/23/16 08:15 70 105/44 Bi-pap 35 02/23/16 08:00 96.6 70 96/1 Bi-pap 35 02/23/16 07:50 70 25 96 Bi-pap 6.0 35 02/23/16 07:45 70 97/51 Bi-pap 35 02/23/16 07:41 70 27 90 Facial 6.0 35 02/23/16 07:40 95 Bi-pap 6.0 35 02/23/16 07:40 Bi-pap 6.0 35 02/23/16 07:40 35 02/23/16 07:40 70 27 95 Bi-pap 6.0 35 02/23/16 07:30 70 100/67 Bi-pap 35 02/23/16 07:15 70 85/63 Bi-pap 35 02/23/16 07:00 70 100/67 Bi-pap 35 02/23/16 06:54 91/41 02/23/16 06:45 70 85/63 Bi-pap 35 02/23/16 06:30 70 99/43 Bi-pap 35 02/23/16 06:26 100/43 02/23/16 06:15 70 100/43 Bi-pap 35 02/23/16 06:00 70 90/50 Bi-pap 35 02/23/16 06:00 80/48 02/23/16 05:45 70 101/52 Bi-pap 35 02/23/16 05:30 70 99/54 Bi-pap 35 02/23/16 05:15 70 95/62 Bi-pap 35 02/23/16 05:12 70 25 96 Facial 35 02/23/16 05:10 Bi-pap 35 02/23/16 05:00 96.6 101/52 Bi-pap 35 02/23/16 05:00 95/62 02/23/16 04:15 70 16 103/50 97 Bi-pap 35 02/23/16 04:00 97.0 70 16 100/46 97 Bi-pap 35 02/23/16 04:00 35 02/23/16 04:00 119/54 02/23/16 04:00 70 02/23/16 03:45 70 16 100/40 97 Bi-pap 35 02/23/16 03:30 70 16 100/46 97 Bi-pap 35 02/23/16 03:30 70 16 106/46 97 Bi-pap 35 02/23/16 03:15 70 16 102/50 97 Bi-pap 35 02/23/16 03:09 70 26 97 Bi-pap 35 02/23/16 03:00 70 16 100/46 97 Bi-pap 35 02/23/16 03:00 101/53 02/23/16 03:00 70 16 112/56 97 Bi-pap 35 02/23/16 02:58 35 02/23/16 02:58 70 24 97 Bi-pap 35 02/23/16 02:57 70 24 97 Facial 35 02/23/16 02:45 70 16 106/40 97 Bi-pap 35 02/23/16 02:30 70 16 99/50 97 Bi-pap 35 02/23/16 02:15 70 16 92/40 97 Bi-pap 35 02/23/16 02:00 70 16 90/40 97 Bi-pap 35 02/23/16 02:00 113/56 02/23/16 01:45 70 16 95/40 97 Bi-pap 35 02/23/16 01:30 70 16 92/45 97 Bi-pap 35 02/23/16 01:17 72 21 95 Facial 35 02/23/16 01:15 70 16 95/40 97 Bi-pap 35 02/23/16 01:00 70 16 95/40 97 Bi-pap 35 02/23/16 01:00 100/49 02/23/16 00:45 70 16 90/46 97 Bi-pap 35 02/23/16 00:30 70 16 95/46 97 Bi-pap 35 02/23/16 00:15 70 16 92/56 97 Bi-pap 35 02/23/16 00:00 70 02/23/16 00:00 35 02/23/16 00:00 70 16 95/46 97 Bi-pap 35 02/22/16 23:57 102/56 02/22/16 23:45 70 16 90/45 97 Bi-pap 35 02/22/16 23:30 70 16 95/46 97 Bi-pap 35 02/22/16 23:15 70 22 96 Bi-pap 35 02/22/16 23:15 70 16 92/46 97 Bi-pap 35 02/22/16 23:06 35 02/22/16 23:06 70 20 94 Bi-pap 35 02/22/16 23:05 70 20 94 Facial 35 02/22/16 23:00 70 16 95/46 97 Bi-pap 35 02/22/16 22:45 70 15 91/49 97 Bi-pap 35 02/22/16 22:30 70 20 92/61 93 Bi-pap 35 02/22/16 22:15 70 20 118/52 93 Bi-pap 35 02/22/16 22:00 70 21 108/51 94 Bi-pap 35 02/22/16 21:45 70 21 99/54 94 Bi-pap 35 02/22/16 21:30 70 21 99/47 94 Bi-pap 35 02/22/16 21:15 70 19 130/87 94 Bi-pap 35 02/22/16 21:00 70 19 88/43 94 Bi-pap 35 02/22/16 20:46 35 02/22/16 20:45 70 19 106/58 94 Bi-pap 35 02/22/16 20:39 70 18 94 Full Face 35 02/22/16 20:30 70 19 106/58 93 Venturi Mask 35 02/22/16 20:15 Venturi Mask 35 02/22/16 20:00 70 02/22/16 20:00 98.2 70 19 91/51 93 Venturi Mask 35 02/22/16 19:45 70 19 106/58 93 Venturi Mask 35 02/22/16 19:30 70 19 89/54 93 Venturi Mask 35 02/22/16 19:27 70 20 98 Venturi Mask 35 02/22/16 19:19 35 02/22/16 19:19 70 14 94 Venturi Mask 35 02/22/16 19:18 94 Venturi Mask 6.0 35 02/22/16 19:18 Venturi Mask 6.0 35 02/22/16 19:15 70 19 96/55 94 Venturi Mask 35 02/22/16 19:00 70 19 93/62 94 Venturi Mask 35 02/22/16 18:45 70 19 93/52 93 Venturi Mask 35 02/22/16 18:30 70 19 91/55 93 Venturi Mask 35 02/22/16 18:15 73 19 79/53 93 Venturi Mask 35 02/22/16 18:00 74 19 79/49 92 Venturi Mask 35 02/22/16 17:45 72 19 86/49 91 Venturi Mask 35 02/22/16 17:43 70/53 02/22/16 17:30 70 18 70/53 91 Venturi Mask 35 02/22/16 17:15 70 18 81/46 91 Venturi Mask 35 02/22/16 17:00 70 17 85/46 91 Venturi Mask 35 02/22/16 16:45 70 17 84/44 91 Venturi Mask 35 02/22/16 16:30 70 16 81/41 92 Venturi Mask 35 02/22/16 16:15 70 16 81/40 90 Venturi Mask 35 02/22/16 16:00 97.1 70 16 83/42 92 Venturi Mask 35 02/22/16 16:00 70 02/22/16 15:45 70 16 90/47 99 Venturi Mask 35 02/22/16 15:30 70 18 85/41 99 Venturi Mask 35 02/22/16 15:15 70 18 80/43 99 Venturi Mask 35 02/22/16 15:00 70 19 84/47 90 Venturi Mask 35 02/22/16 14:58 70 18 96 Venturi Mask 35 02/22/16 14:58 55 02/22/16 14:58 70 18 98 Venturi Mask 35 02/22/16 14:45 70 20 85/45 90 Venturi Mask 35 02/22/16 14:30 70 20 101/43 91 Venturi Mask 35 02/22/16 14:15 70 23 98/49 92 Venturi Mask 35 02/22/16 14:00 70 22 89/48 91 Venturi Mask 35 02/22/16 13:45 70 22 91/47 91 Venturi Mask 35 02/22/16 13:30 70 22 94/46 91 Venturi Mask 35 02/22/16 13:15 70 21 95/52 91 Venturi Mask 35 02/22/16 13:00 70 21 93/52 91 Venturi Mask 35 02/22/16 12:45 70 21 94/43 91 Venturi Mask 35 02/22/16 12:34 70 02/22/16 12:30 70 21 88/49 92 Venturi Mask 35 02/22/16 12:15 70 21 97/55 92 Venturi Mask 35 02/22/16 12:00 96.2 70 20 89/48 93 Venturi Mask 35 02/22/16 11:45 70 21 93/43 92 Venturi Mask 35 02/22/16 11:30 70 21 92/45 93 Venturi Mask 35 Status: somnolent Condition: critical HEENT: atraumatic Neck: full ROM Lungs: chest wall tender Heart: HR/BP unstable Extremities: no C/C/E, edema Decubiti: location Micro: Microbiology Date/Time Source Procedure Growth Status 02/20/16 13:37 Blood Blood Culture - Preliminary NO GROWTH AFTER 48 HOURS Resulted 02/20/16 13:14 Blood Blood Culture - Preliminary NO GROWTH AFTER 48 HOURS Resulted 02/21/16 16:15 Sputum Gram Stain - Final Resulted 02/21/16 16:15 Sputum Sputum Culture Pending Resulted 02/20/16 15:43 Nasal Not Otherwise Specified MRSA Culture - Final NO METHICILLIN RESISTANT STAPH AUREUS... Complete 02/20/16 15:30 Urine,Clean Catch Urine Culture - Final Janine Albicans Gram Negative Bacillus 1 Complete 02/20/16 15:43 Rectum VRE Culture - Final Enterococcus Faecium - Vre Complete Accucheck: 86 Critical Care - Subjective ROS Limited/Unobtainable: Yes ICU Day: 4 Interval Events: on Bipap again, more lethargic FI02: 35 Vent Support Breath Rate: 20 Vent Support Mode: AC Vent Tidal Volume: 550 Sputum Amount: None PEEP: 5.0 PIP: 25 Drips: 20 mug Levophed I&O: Intake and Output 02/22/16 02/23/16 19:00 07:00 Intake Total 917.22 ml 988.6 ml Output Total 805 ml 25 ml Balance 112.22 ml 963.6 ml Intake IV Total 917.22 ml 988.6 ml Output Urine Total 5 ml 25 ml Hemodialysis UF 800 ml # Bowel Movements 1 1 CXR: increasing pulmonary edema ET-Tube: 7.5 ET Position: 24 Labs: Laboratory Tests Test 02/23/16 04:30 02/23/16 09:43 White Blood Count 9.9 K/UL (4.8-10.8) Red Blood Count 3.58 M/UL (4.70-6.10) L Hemoglobin 10.6 G/DL (14.2-18.0) L Hematocrit 34.2 % (42.0-52.0) L Mean Corpuscular Volume 96 FL (80-99) Mean Corpuscular Hemoglobin 29.6 PG (27.0-31.0) Mean Corpuscular Hemoglobin Concent 30.9 G/DL (32.0-36.0) L Red Cell Distribution Width 24.2 % (11.6-14.8) H Platelet Count 18 K/UL (150-450) L Mean Platelet Volume 7.6 FL (6.5-10.1) Neutrophils (%) (Auto) % (45.0-75.0) Lymphocytes (%) (Auto) % (20.0-45.0) Monocytes (%) (Auto) % (1.0-10.0) Eosinophils (%) (Auto) % (0.0-3.0) Basophils (%) (Auto) % (0.0-2.0) Differential Total Cells Counted 100 Neutrophils % (Manual) 65 % (45-75) Lymphocytes % (Manual) 4 % (20-45) L Monocytes % (Manual) 8 % (1-10) Eosinophils % (Manual) 18 % (0-3) H Basophils % (Manual) 1 % (0-2) Band Neutrophils 4 % (0-8) Platelet Estimate Decreased L Platelet Morphology Normal Hypochromasia 1+ Anisocytosis 2+ [place] Cells Occasional Sodium Level 129 mEQ/L (135-145) L Potassium Level 3.5 mEQ/L (3.4-4.9) Chloride Level 90 mEQ/L (98-107) L Carbon Dioxide Level 26 mEQ/L (20-30) Anion Gap 13 (5-15) Blood Urea Nitrogen 16 mg/dL (7-23) Creatinine 2.3 mg/dL (0.7-1.2) H Estimat Glomerular Filtration Rate mL/min (>60) Glucose Level 102 mg/dL (74-106) Calcium Level 8.1 mg/dL (8.6-10.2) L Phosphorus Level 3.6 mg/dL (2.5-4.8) Magnesium Level 1.9 mg/dL (1.7-2.5) Total Bilirubin 1.5 mg/dL (0.0-1.2) H Direct Bilirubin 0.7 mg/dL (0.1-0.3) H Aspartate Amino Transf (AST/SGOT) 27 U/L (5-40) Alanine Aminotransferase (ALT/SGPT) 9 U/L (3-41) Alkaline Phosphatase 151 U/L (40-129) H Total Protein 6.7 g/dL (6.6-8.7) Albumin 2.7 g/dL (3.5-5.2) L Globulin 3.8 g/dL Albumin/Globulin Ratio 0.7 (1.0-2.7) L Arterial Blood pH 7.384 (7.350-7.450) Arterial Blood Partial Pressure CO2 48.7 mmHg (35.0-45.0) H Arterial Blood Partial Pressure O2 72.9 mmHg (75.0-100.0) L Arterial Blood HCO3 28.4 mmol/L (22.0-26.0) H Arterial Blood Oxygen Saturation 95.3 % (92.0-98.0) Arterial Blood Base Excess 2.7 [place] Test Positive JOSE LUIS ATKINS Feb 23, 2016 11:29
--- NOTE | 2016-02-23 12:04 | Diagnostic Imaging Report ---
Indications: DYSPNEA Technique: Audible AP chest Findings: Comparison: 02/21/2016 Cardiomegaly, diffuse bilateral interstitial infiltrates, patchy ovular consolidation right lower lung, blunting of the costophrenic angles suggesting small pleural effusions persist, not significantly changed. Lines and tubes remain in place. No new abnormality identified. IMPRESSION: Stable bilateral congestive changes Superimposed right lower lobe pneumonia not excludable, unchanged
[2016-02-23] MEDS: Azithromycin 500 MG in NS 250 ML IV SCH (16:31)
--- NOTE | 2016-02-23 17:52 | Nephrology Progress Note ---
Assessment/Plan Problem List: (1) CAD (coronary artery disease) (2) Ischemic cardiomyopathy (3) COPD (chronic obstructive pulmonary disease) (4) Encephalopathy (5) PVD (peripheral vascular disease) (6) DM type 2 (diabetes mellitus, type 2) (7) Hypoxia (8) Septic shock (9) Pulmonary edema (10) Respiratory failure (11) ESRD (end stage renal disease) on dialysis (12) Hypotension Assessment hd today, -1.5L gradual fluid removal, chronic low bp, gradual uf for chf, monitor cxr labs Subjective ROS Limited/Unobtainable: Yes Objective Objective Last 24 Hour Vital Signs Date Time Temp Pulse Resp B/P Pulse Ox O2 Delivery O2 Flow Rate FiO2 02/23/16 17:30 70 20 82/51 90 Venturi Mask 8.0 40 02/23/16 17:30 70 21 82/54 92 Venturi Mask 8.0 40 02/23/16 17:15 70 22 81/43 92 Venturi Mask 8.0 40 02/23/16 17:00 71 22 87/42 92 Venturi Mask 8.0 40 02/23/16 16:45 71 22 82/45 94 Venturi Mask 6.0 35 02/23/16 16:30 70 22 102/54 94 Venturi Mask 6.0 35 02/23/16 16:15 70 22 92/46 94 Venturi Mask 6.0 35 02/23/16 16:00 70 20 84/52 93 Venturi Mask 6.0 35 02/23/16 16:00 72 02/23/16 15:45 70 20 96/49 93 Venturi Mask 6.0 35 02/23/16 15:30 98.1 71 22 89/42 95 Venturi Mask 6.0 35 02/23/16 15:15 70 99/53 Venturi Mask 35 02/23/16 15:14 70 20 93 Venturi Mask 6.0 35 02/23/16 15:04 35 02/23/16 15:03 70 20 92 Venturi Mask 6.0 35 02/23/16 15:00 70 99/39 Venturi Mask 35 02/23/16 15:00 99/39 02/23/16 14:45 70 99/37 Venturi Mask 35 02/23/16 14:30 70 98/40 Venturi Mask 35 02/23/16 14:15 70 91/28 Bi-pap 35 02/23/16 14:00 95/51 02/23/16 14:00 70 100/48 Bi-pap 35 02/23/16 13:45 70 99/44 Bi-pap 35 02/23/16 13:31 97/43 02/23/16 13:30 70 91/65 Bi-pap 35 02/23/16 13:25 70 19 93 Facial 6.0 35 02/23/16 13:15 70 92/49 Bi-pap 35 02/23/16 13:00 70 107/51 Bi-pap 35 02/23/16 13:00 106/72 02/23/16 12:45 70 98/46 Bi-pap 35 02/23/16 12:30 70 90/67 Bi-pap 35 02/23/16 12:15 70 95/46 Bi-pap 35 02/23/16 12:00 97/39 02/23/16 12:00 70 02/23/16 12:00 96.5 70 97/39 Bi-pap 35 02/23/16 11:45 70 103/50 Bi-pap 35 02/23/16 11:30 70 103/50 Bi-pap 35 02/23/16 11:28 70 20 96 Bi-pap 6.0 35 02/23/16 11:20 70 28 90 Facial 6.0 35 02/23/16 11:18 35 02/23/16 11:18 70 25 96 Bi-pap 6.0 35 02/23/16 11:15 70 105/54 Bi-pap 35 02/23/16 11:00 70 108/46 Bi-pap 35 02/23/16 11:00 97/39 02/23/16 10:45 70 100/54 Bi-pap 35 02/23/16 10:30 70 120/59 Bi-pap 35 02/23/16 10:15 70 117/51 Bi-pap 35 02/23/16 10:00 70 109/48 Bi-pap 35 02/23/16 10:00 105/54 02/23/16 09:45 70 105/49 Bi-pap 35 02/23/16 09:30 70 103/57 Bi-pap 35 02/23/16 09:15 70 106/55 Bi-pap 35 02/23/16 09:00 106/35 02/23/16 09:00 70 102/58 Bi-pap 35 02/23/16 08:45 70 104/75 Bi-pap 35 02/23/16 08:40 70 25 90 Facial 6.0 35 02/23/16 08:40 Bi-pap 35 02/23/16 08:40 96.0 70 109/51 Bi-pap 35 02/23/16 08:30 70 109/51 Bi-pap 35 02/23/16 08:15 70 105/44 Bi-pap 35 02/23/16 08:00 70 02/23/16 08:00 96/41 02/23/16 08:00 96.6 70 96/1 Bi-pap 35 02/23/16 07:50 70 25 96 Bi-pap 6.0 35 02/23/16 07:45 70 97/51 Bi-pap 35 02/23/16 07:41 70 27 90 Facial 6.0 35 02/23/16 07:40 95 Bi-pap 6.0 35 02/23/16 07:40 Bi-pap 6.0 35 02/23/16 07:40 35 02/23/16 07:40 70 27 95 Bi-pap 6.0 35 02/23/16 07:30 70 100/67 Bi-pap 35 02/23/16 07:15 70 85/63 Bi-pap 35 02/23/16 07:00 70 100/67 Bi-pap 35 02/23/16 07:00 96/53 02/23/16 06:54 91/41 02/23/16 06:45 70 85/63 Bi-pap 35 02/23/16 06:30 70 99/43 Bi-pap 35 02/23/16 06:26 100/43 02/23/16 06:15 70 100/43 Bi-pap 35 02/23/16 06:00 70 90/50 Bi-pap 35 02/23/16 06:00 80/48 02/23/16 05:45 70 101/52 Bi-pap 35 02/23/16 05:30 70 99/54 Bi-pap 35 02/23/16 05:15 70 95/62 Bi-pap 35 02/23/16 05:12 70 25 96 Facial 35 02/23/16 05:10 Bi-pap 35 02/23/16 05:00 96.6 101/52 Bi-pap 35 02/23/16 05:00 95/62 02/23/16 04:15 70 16 103/50 97 Bi-pap 35 02/23/16 04:00 97.0 70 16 100/46 97 Bi-pap 35 02/23/16 04:00 35 02/23/16 04:00 119/54 02/23/16 04:00 70 02/23/16 03:45 70 16 100/40 97 Bi-pap 35 02/23/16 03:30 70 16 100/46 97 Bi-pap 35 02/23/16 03:30 70 16 106/46 97 Bi-pap 35 02/23/16 03:15 70 16 102/50 97 Bi-pap 35 02/23/16 03:09 70 26 97 Bi-pap 35 02/23/16 03:00 70 16 100/46 97 Bi-pap 35 02/23/16 03:00 101/53 02/23/16 03:00 70 16 112/56 97 Bi-pap 35 02/23/16 02:58 35 02/23/16 02:58 70 24 97 Bi-pap 35 02/23/16 02:57 70 24 97 Facial 35 02/23/16 02:45 70 16 106/40 97 Bi-pap 35 02/23/16 02:30 70 16 99/50 97 Bi-pap 35 02/23/16 02:15 70 16 92/40 97 Bi-pap 35 02/23/16 02:00 70 16 90/40 97 Bi-pap 35 02/23/16 02:00 113/56 02/23/16 01:45 70 16 95/40 97 Bi-pap 35 02/23/16 01:30 70 16 92/45 97 Bi-pap 35 02/23/16 01:17 72 21 95 Facial 35 02/23/16 01:15 70 16 95/40 97 Bi-pap 35 02/23/16 01:00 70 16 95/40 97 Bi-pap 35 02/23/16 01:00 100/49 02/23/16 00:45 70 16 90/46 97 Bi-pap 35 02/23/16 00:30 70 16 95/46 97 Bi-pap 35 02/23/16 00:15 70 16 92/56 97 Bi-pap 35 02/23/16 00:00 70 02/23/16 00:00 35 02/23/16 00:00 70 16 95/46 97 Bi-pap 35 02/22/16 23:57 102/56 02/22/16 23:45 70 16 90/45 97 Bi-pap 35 02/22/16 23:30 70 16 95/46 97 Bi-pap 35 02/22/16 23:15 70 22 96 Bi-pap 35 02/22/16 23:15 70 16 92/46 97 Bi-pap 35 02/22/16 23:06 35 02/22/16 23:06 70 20 94 Bi-pap 35 02/22/16 23:05 70 20 94 Facial 35 02/22/16 23:00 70 16 95/46 97 Bi-pap 35 02/22/16 22:45 70 15 91/49 97 Bi-pap 35 02/22/16 22:30 70 20 92/61 93 Bi-pap 35 02/22/16 22:15 70 20 118/52 93 Bi-pap 35 02/22/16 22:00 70 21 108/51 94 Bi-pap 35 02/22/16 21:45 70 21 99/54 94 Bi-pap 35 02/22/16 21:30 70 21 99/47 94 Bi-pap 35 02/22/16 21:15 70 19 130/87 94 Bi-pap 35 02/22/16 21:00 70 19 88/43 94 Bi-pap 35 02/22/16 20:46 35 02/22/16 20:45 70 19 106/58 94 Bi-pap 35 02/22/16 20:39 70 18 94 Full Face 35 02/22/16 20:30 70 19 106/58 93 Venturi Mask 35 02/22/16 20:15 Venturi Mask 35 02/22/16 20:00 70 02/22/16 20:00 98.2 70 19 91/51 93 Venturi Mask 35 02/22/16 19:45 70 19 106/58 93 Venturi Mask 35 02/22/16 19:30 70 19 89/54 93 Venturi Mask 35 02/22/16 19:27 70 20 98 Venturi Mask 35 02/22/16 19:19 35 02/22/16 19:19 70 14 94 Venturi Mask 35 02/22/16 19:18 94 Venturi Mask 6.0 35 02/22/16 19:18 Venturi Mask 6.0 35 02/22/16 19:15 70 19 96/55 94 Venturi Mask 35 02/22/16 19:00 70 19 93/62 94 Venturi Mask 35 02/22/16 18:45 70 19 93/52 93 Venturi Mask 35 02/22/16 18:30 70 19 91/55 93 Venturi Mask 35 02/22/16 18:15 73 19 79/53 93 Venturi Mask 35 02/22/16 18:00 74 19 79/49 92 Venturi Mask 35 Intake and Output 02/22/16 02/23/16 19:00 07:00 Intake Total 917.22 ml 1064.8 ml Output Total 805 ml 25 ml Balance 112.22 ml 1039.8 ml Intake IV Total 917.22 ml 1064.8 ml Output Urine Total 5 ml 25 ml Hemodialysis UF 800 ml # Bowel Movements 1 1 Laboratory Tests 02/23/16 04:30: White Blood Count 9.9, Red Blood Count 3.58L, Hemoglobin 10.6L, Hematocrit 34.2L , Mean Corpuscular Volume 96, Mean Corpuscular Hemoglobin 29.6, Mean Corpuscular Hemoglobin Concent 30.9L, Red Cell Distribution Width 24.2H, Platelet Count 18L, Mean Platelet Volume 7.6, Neutrophils (%) (Auto) , Lymphocytes (%) (Auto) , Monocytes (%) (Auto) , Eosinophils (%) (Auto) , Basophils (%) (Auto) , Differential Total Cells Counted 100, Neutrophils % ( Manual) 65, Lymphocytes % (Manual) 4L, Monocytes % (Manual) 8, Eosinophils % ( Manual) 18H, Basophils % (Manual) 1, Band Neutrophils 4, Platelet Estimate DecreasedL, Platelet Morphology Normal, Hypochromasia 1+, Anisocytosis 2+, [place] Cells Occasional, Sodium Level 129L, Potassium Level 3.5, Chloride Level 90L, Carbon Dioxide Level 26, Anion Gap 13, Blood Urea Nitrogen 16, Creatinine 2.3H, Estimat Glomerular Filtration Rate , Glucose Level 102, Calcium Level 8.1L, Phosphorus Level 3.6, Magnesium Level 1.9, Total Bilirubin 1.5H, Direct Bilirubin 0.7H, Aspartate Amino Transf (AST/SGOT) 27, Alanine Aminotransferase ( ALT/SGPT) 9, Alkaline Phosphatase 151H, Total Protein 6.7, Albumin 2.7L, Globulin 3.8, Albumin/Globulin Ratio 0.7L 02/23/16 09:43: Arterial Blood pH 7.384, Arterial Blood Partial Pressure CO2 48.7H, Arterial Blood Partial Pressure O2 72.9L, Arterial Blood HCO3 28.4H, Arterial Blood Oxygen Saturation 95.3, Arterial Blood Base Excess 2.7, [place] Test Positive Height (Feet): 5 Height (Inches): 4.00 Weight (Pounds): 145 General Appearance: moderate distress EENT: PERRL/EOMI Neck: normal alignment Cardiovascular: regular rhythm Respiratory/Chest: rhonchi - bilaterally Abdomen: non tender, soft Extremities: moderate edema 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
--- NOTE | 2016-02-23 17:55 | Cardiology Progress Note ---
Assessment/Plan Problem List: (1) Ischemic cardiomyopathy (2) CAD (coronary artery disease) (3) COPD (chronic obstructive pulmonary disease) (4) Septic shock (5) Pulmonary edema (6) Respiratory failure (7) Pneumonia (8) Severe sepsis (9) A-fib (10) DM type 2 (diabetes mellitus, type 2) Status: not improved, unchanged Status Narrative Pt w resp failure, due to pneumonia and chf. Self-extubated Pressors weaned, but pt now w/ hypotension again. h/o decline in status over past few months noted - pt w/ end-stage chf/ ischemic cm, s/p bivent icd Assessment/Plan Continue current supportive care - FM 02 IV abx for pneumonia (empiric) HD for fluid removal. Restart levophed for hypotension DNR status noted. Overall prognosis poor Subjective ROS Limited/Unobtainable: Yes Subjective Extubated, sedated Objective Last 24 Hour Vital Signs Date Time Temp Pulse Resp B/P Pulse Ox O2 Delivery O2 Flow Rate FiO2 02/23/16 17:30 70 20 82/51 90 Venturi Mask 8.0 40 02/23/16 17:30 70 21 82/54 92 Venturi Mask 8.0 40 02/23/16 17:15 70 22 81/43 92 Venturi Mask 8.0 40 02/23/16 17:00 71 22 87/42 92 Venturi Mask 8.0 40 02/23/16 16:45 71 22 82/45 94 Venturi Mask 6.0 35 02/23/16 16:30 70 22 102/54 94 Venturi Mask 6.0 35 02/23/16 16:15 70 22 92/46 94 Venturi Mask 6.0 35 02/23/16 16:00 70 20 84/52 93 Venturi Mask 6.0 35 02/23/16 16:00 72 02/23/16 15:45 70 20 96/49 93 Venturi Mask 6.0 35 02/23/16 15:30 98.1 71 22 89/42 95 Venturi Mask 6.0 35 02/23/16 15:15 70 99/53 Venturi Mask 35 02/23/16 15:14 70 20 93 Venturi Mask 6.0 35 02/23/16 15:04 35 02/23/16 15:03 70 20 92 Venturi Mask 6.0 35 02/23/16 15:00 70 99/39 Venturi Mask 35 02/23/16 15:00 99/39 02/23/16 14:45 70 99/37 Venturi Mask 35 02/23/16 14:30 70 98/40 Venturi Mask 35 02/23/16 14:15 70 91/28 Bi-pap 35 02/23/16 14:00 95/51 02/23/16 14:00 70 100/48 Bi-pap 35 02/23/16 13:45 70 99/44 Bi-pap 35 02/23/16 13:31 97/43 02/23/16 13:30 70 91/65 Bi-pap 35 02/23/16 13:25 70 19 93 Facial 6.0 35 02/23/16 13:15 70 92/49 Bi-pap 35 02/23/16 13:00 70 107/51 Bi-pap 35 02/23/16 13:00 106/72 02/23/16 12:45 70 98/46 Bi-pap 35 02/23/16 12:30 70 90/67 Bi-pap 35 02/23/16 12:15 70 95/46 Bi-pap 35 02/23/16 12:00 97/39 02/23/16 12:00 70 02/23/16 12:00 96.5 70 97/39 Bi-pap 35 02/23/16 11:45 70 103/50 Bi-pap 35 02/23/16 11:30 70 103/50 Bi-pap 35 02/23/16 11:28 70 20 96 Bi-pap 6.0 35 02/23/16 11:20 70 28 90 Facial 6.0 35 02/23/16 11:18 35 02/23/16 11:18 70 25 96 Bi-pap 6.0 35 02/23/16 11:15 70 105/54 Bi-pap 35 02/23/16 11:00 70 108/46 Bi-pap 35 02/23/16 11:00 97/39 02/23/16 10:45 70 100/54 Bi-pap 35 02/23/16 10:30 70 120/59 Bi-pap 35 02/23/16 10:15 70 117/51 Bi-pap 35 02/23/16 10:00 70 109/48 Bi-pap 35 02/23/16 10:00 105/54 02/23/16 09:45 70 105/49 Bi-pap 35 02/23/16 09:30 70 103/57 Bi-pap 35 02/23/16 09:15 70 106/55 Bi-pap 35 02/23/16 09:00 106/35 02/23/16 09:00 70 102/58 Bi-pap 35 02/23/16 08:45 70 104/75 Bi-pap 35 02/23/16 08:40 70 25 90 Facial 6.0 35 02/23/16 08:40 Bi-pap 35 02/23/16 08:40 96.0 70 109/51 Bi-pap 35 02/23/16 08:30 70 109/51 Bi-pap 35 02/23/16 08:15 70 105/44 Bi-pap 35 02/23/16 08:00 70 02/23/16 08:00 96/41 02/23/16 08:00 96.6 70 96/1 Bi-pap 35 02/23/16 07:50 70 25 96 Bi-pap 6.0 35 02/23/16 07:45 70 97/51 Bi-pap 35 02/23/16 07:41 70 27 90 Facial 6.0 35 02/23/16 07:40 95 Bi-pap 6.0 35 02/23/16 07:40 Bi-pap 6.0 35 02/23/16 07:40 35 02/23/16 07:40 70 27 95 Bi-pap 6.0 35 02/23/16 07:30 70 100/67 Bi-pap 35 02/23/16 07:15 70 85/63 Bi-pap 35 02/23/16 07:00 70 100/67 Bi-pap 35 02/23/16 07:00 96/53 02/23/16 06:54 91/41 02/23/16 06:45 70 85/63 Bi-pap 35 02/23/16 06:30 70 99/43 Bi-pap 35 02/23/16 06:26 100/43 02/23/16 06:15 70 100/43 Bi-pap 35 02/23/16 06:00 70 90/50 Bi-pap 35 02/23/16 06:00 80/48 02/23/16 05:45 70 101/52 Bi-pap 35 02/23/16 05:30 70 99/54 Bi-pap 35 02/23/16 05:15 70 95/62 Bi-pap 35 02/23/16 05:12 70 25 96 Facial 35 02/23/16 05:10 Bi-pap 35 02/23/16 05:00 96.6 101/52 Bi-pap 35 02/23/16 05:00 95/62 02/23/16 04:15 70 16 103/50 97 Bi-pap 35 02/23/16 04:00 97.0 70 16 100/46 97 Bi-pap 35 02/23/16 04:00 35 02/23/16 04:00 119/54 02/23/16 04:00 70 02/23/16 03:45 70 16 100/40 97 Bi-pap 35 02/23/16 03:30 70 16 100/46 97 Bi-pap 35 02/23/16 03:30 70 16 106/46 97 Bi-pap 35 02/23/16 03:15 70 16 102/50 97 Bi-pap 35 02/23/16 03:09 70 26 97 Bi-pap 35 02/23/16 03:00 70 16 100/46 97 Bi-pap 35 02/23/16 03:00 101/53 02/23/16 03:00 70 16 112/56 97 Bi-pap 35 02/23/16 02:58 35 02/23/16 02:58 70 24 97 Bi-pap 35 02/23/16 02:57 70 24 97 Facial 35 02/23/16 02:45 70 16 106/40 97 Bi-pap 35 02/23/16 02:30 70 16 99/50 97 Bi-pap 35 02/23/16 02:15 70 16 92/40 97 Bi-pap 35 02/23/16 02:00 70 16 90/40 97 Bi-pap 35 02/23/16 02:00 113/56 02/23/16 01:45 70 16 95/40 97 Bi-pap 35 02/23/16 01:30 70 16 92/45 97 Bi-pap 35 02/23/16 01:17 72 21 95 Facial 35 02/23/16 01:15 70 16 95/40 97 Bi-pap 35 02/23/16 01:00 70 16 95/40 97 Bi-pap 35 02/23/16 01:00 100/49 02/23/16 00:45 70 16 90/46 97 Bi-pap 35 02/23/16 00:30 70 16 95/46 97 Bi-pap 35 02/23/16 00:15 70 16 92/56 97 Bi-pap 35 02/23/16 00:00 70 02/23/16 00:00 35 02/23/16 00:00 70 16 95/46 97 Bi-pap 35 02/22/16 23:57 102/56 02/22/16 23:45 70 16 90/45 97 Bi-pap 35 02/22/16 23:30 70 16 95/46 97 Bi-pap 35 02/22/16 23:15 70 22 96 Bi-pap 35 02/22/16 23:15 70 16 92/46 97 Bi-pap 35 02/22/16 23:06 35 02/22/16 23:06 70 20 94 Bi-pap 35 02/22/16 23:05 70 20 94 Facial 35 02/22/16 23:00 70 16 95/46 97 Bi-pap 35 02/22/16 22:45 70 15 91/49 97 Bi-pap 35 02/22/16 22:30 70 20 92/61 93 Bi-pap 35 02/22/16 22:15 70 20 118/52 93 Bi-pap 35 02/22/16 22:00 70 21 108/51 94 Bi-pap 35 02/22/16 21:45 70 21 99/54 94 Bi-pap 35 02/22/16 21:30 70 21 99/47 94 Bi-pap 35 02/22/16 21:15 70 19 130/87 94 Bi-pap 35 02/22/16 21:00 70 19 88/43 94 Bi-pap 35 02/22/16 20:46 35 02/22/16 20:45 70 19 106/58 94 Bi-pap 35 02/22/16 20:39 70 18 94 Full Face 35 02/22/16 20:30 70 19 106/58 93 Venturi Mask 35 02/22/16 20:15 Venturi Mask 35 02/22/16 20:00 70 02/22/16 20:00 98.2 70 19 91/51 93 Venturi Mask 35 02/22/16 19:45 70 19 106/58 93 Venturi Mask 35 02/22/16 19:30 70 19 89/54 93 Venturi Mask 35 02/22/16 19:27 70 20 98 Venturi Mask 35 02/22/16 19:19 35 02/22/16 19:19 70 14 94 Venturi Mask 35 02/22/16 19:18 94 Venturi Mask 6.0 35 02/22/16 19:18 Venturi Mask 6.0 35 02/22/16 19:15 70 19 96/55 94 Venturi Mask 35 02/22/16 19:00 70 19 93/62 94 Venturi Mask 35 02/22/16 18:45 70 19 93/52 93 Venturi Mask 35 02/22/16 18:30 70 19 91/55 93 Venturi Mask 35 02/22/16 18:15 73 19 79/53 93 Venturi Mask 35 02/22/16 18:00 74 19 79/49 92 Venturi Mask 35 General Appearance: moderate distress, lethargic EENT: PERRL/EOMI Neck: supple, no JVD Rhythm: NSR Cardiovascular: normal rate, regular rhythm Respiratory/Chest: rhonchi - bilaterally Abdomen: non tender, soft Extremities: no swelling Intake and Output 02/22/16 02/23/16 19:00 07:00 Intake Total 917.22 ml 1064.8 ml Output Total 805 ml 25 ml Balance 112.22 ml 1039.8 ml Intake IV Total 917.22 ml 1064.8 ml Output Urine Total 5 ml 25 ml Hemodialysis UF 800 ml # Bowel Movements 1 1 Laboratory Tests Test 02/23/16 04:30 02/23/16 09:43 White Blood Count 9.9 K/UL (4.8-10.8) Red Blood Count 3.58 M/UL (4.70-6.10) L Hemoglobin 10.6 G/DL (14.2-18.0) L Hematocrit 34.2 % (42.0-52.0) L Mean Corpuscular Volume 96 FL (80-99) Mean Corpuscular Hemoglobin 29.6 PG (27.0-31.0) Mean Corpuscular Hemoglobin Concent 30.9 G/DL (32.0-36.0) L Red Cell Distribution Width 24.2 % (11.6-14.8) H Platelet Count 18 K/UL (150-450) L Mean Platelet Volume 7.6 FL (6.5-10.1) Neutrophils (%) (Auto) % (45.0-75.0) Lymphocytes (%) (Auto) % (20.0-45.0) Monocytes (%) (Auto) % (1.0-10.0) Eosinophils (%) (Auto) % (0.0-3.0) Basophils (%) (Auto) % (0.0-2.0) Differential Total Cells Counted 100 Neutrophils % (Manual) 65 % (45-75) Lymphocytes % (Manual) 4 % (20-45) L Monocytes % (Manual) 8 % (1-10) Eosinophils % (Manual) 18 % (0-3) H Basophils % (Manual) 1 % (0-2) Band Neutrophils 4 % (0-8) Platelet Estimate Decreased L Platelet Morphology Normal Hypochromasia 1+ Anisocytosis 2+ Christelle Cells Occasional Sodium Level 129 mEQ/L (135-145) L Potassium Level 3.5 mEQ/L (3.4-4.9) Chloride Level 90 mEQ/L (98-107) L Carbon Dioxide Level 26 mEQ/L (20-30) Anion Gap 13 (5-15) Blood Urea Nitrogen 16 mg/dL (7-23) Creatinine 2.3 mg/dL (0.7-1.2) H Estimat Glomerular Filtration Rate mL/min (>60) Glucose Level 102 mg/dL (74-106) Calcium Level 8.1 mg/dL (8.6-10.2) L Phosphorus Level 3.6 mg/dL (2.5-4.8) Magnesium Level 1.9 mg/dL (1.7-2.5) Total Bilirubin 1.5 mg/dL (0.0-1.2) H Direct Bilirubin 0.7 mg/dL (0.1-0.3) H Aspartate Amino Transf (AST/SGOT) 27 U/L (5-40) Alanine Aminotransferase (ALT/SGPT) 9 U/L (3-41) Alkaline Phosphatase 151 U/L (40-129) H Total Protein 6.7 g/dL (6.6-8.7) Albumin 2.7 g/dL (3.5-5.2) L Globulin 3.8 g/dL Albumin/Globulin Ratio 0.7 (1.0-2.7) L Arterial Blood pH 7.384 (7.350-7.450) Arterial Blood Partial Pressure CO2 48.7 mmHg (35.0-45.0) H Arterial Blood Partial Pressure O2 72.9 mmHg (75.0-100.0) L Arterial Blood HCO3 28.4 mmol/L (22.0-26.0) H Arterial Blood Oxygen Saturation 95.3 % (92.0-98.0) Arterial Blood Base Excess 2.7 [place] Test Positive Microbiology Date/Time Source Procedure Growth Status 02/21/16 16:15 Sputum Gram Stain - Final Resulted 02/21/16 16:15 Sputum Sputum Culture Pending Resulted ANTHONY IRVIN Feb 23, 2016 17:55
--- NOTE | 2016-02-23 19:35 | General Progress Note ---
Assessment/Plan Problem List: (1) Pulmonary edema ICD Codes: J81.1 - Chronic pulmonary edema SNOMED: 09098669 Qualifiers: Qualified Codes: J81.0 - Acute pulmonary edema (2) Hypotension ICD Codes: I95.9 - Hypotension, unspecified SNOMED: 11848815 Qualifiers: Qualified Codes: I95.89 - Other hypotension (3) Pneumonia ICD Codes: J18.9 - Pneumonia, unspecified organism SNOMED: 197595514 Qualifiers: Qualified Codes: J18.9 - Pneumonia, unspecified organism (4) ESRD (end stage renal disease) on dialysis ICD Codes: N18.6 - End stage renal disease; Z99.2 - Dependence on renal dialysis SNOMED: 699758355 (5) Respiratory failure ICD Codes: J96.90 - Respiratory failure, unspecified, unspecified whether with hypoxia or hypercapnia SNOMED: 824239126 Qualifiers: Qualified Codes: J96.01 - Acute respiratory failure with hypoxia; J96.02 - Acute respiratory failure with hypercapnia (6) Hypoxia ICD Codes: R09.02 - Hypoxemia SNOMED: 30582354, 385894940 (7) CAD (coronary artery disease) ICD Codes: I25.10 - Atherosclerotic heart disease of [place] coronary artery without angina pectoris SNOMED: 18834815 (8) Ischemic cardiomyopathy ICD Codes: I25.5 - Ischemic cardiomyopathy SNOMED: 228052616 (9) COPD (chronic obstructive pulmonary disease) ICD Codes: J44.9 - Chronic obstructive pulmonary disease, unspecified SNOMED: 81756724 (10) Thrombocytopenia ICD Codes: D69.6 - Thrombocytopenia, unspecified SNOMED: 866980761 (11) Encephalopathy ICD Codes: G93.40 - Encephalopathy, unspecified SNOMED: 68054391, 830629802 (12) PVD (peripheral vascular disease) ICD Codes: I73.9 - Peripheral vascular disease, unspecified SNOMED: 289340926 (13) A-fib ICD Codes: I48.91 - Unspecified atrial fibrillation SNOMED: 89523653 (14) HTN (hypertension) ICD Codes: I10 - Essential (primary) hypertension SNOMED: 17410286 (15) DM type 2 (diabetes mellitus, type 2) ICD Codes: E11.9 - Type 2 diabetes mellitus without complications SNOMED: 93797430 (16) HLD (hyperlipidemia) ICD Codes: E78.5 - Hyperlipidemia, unspecified SNOMED: 35251682 (17) Septic shock ICD Codes: A41.9 - Sepsis, unspecified organism; R65.21 - Severe sepsis with septic shock SNOMED: 23911890 Assessment/Plan Pt admitted to ICU intubated for ventilatory support for acute hypoxic respiratory failure. Now extubated and on venturi mask Dr. Marin of pulm crit conslted; appreciate involvement Dr. Keita of cards c/s'd, appreciate involvement cont atc duo nebs Zosyn, vanc and azithromycin, HCAP v CAP Dr. Mcnamara of Nephrology c/s'd; resumed HD cont home meds hold eliquis and pharm dvt ppx; scd only f/u DIC panel--D dimer high Subjective Date patient seen: Feb 23, 2016 Time patient seen: 19:34 Allergies: Coded Allergies: No Known Allergies (Unverified , 02/20/16) Subjective no acute events o/n; pt still on pressors; doing well s/p extubation Objective Last 24 Hour Vital Signs Date Time Temp Pulse Resp B/P Pulse Ox O2 Delivery O2 Flow Rate FiO2 02/23/16 19:25 70 25 95 Venturi Mask 8.0 40 02/23/16 19:15 71 20 87/50 93 Venturi Mask 8.0 40 02/23/16 19:15 70 20 83/46 92 Venturi Mask 8.0 40 02/23/16 19:15 40 02/23/16 19:14 Venturi Mask 8.0 40 02/23/16 19:14 70 26 93 Venturi Mask 8.0 40 02/23/16 19:14 93 Venturi Mask 8.0 40 02/23/16 19:00 70 22 82/44 92 Venturi Mask 8.0 40 02/23/16 19:00 70 20 83/46 92 Venturi Mask 8.0 40 02/23/16 18:45 70 20 79/46 92 Venturi Mask 8.0 40 02/23/16 18:45 71 20 90/42 92 Venturi Mask 8.0 40 02/23/16 18:30 71 20 92/44 92 Venturi Mask 8.0 40 02/23/16 18:15 70 22 80/43 95 Venturi Mask 8.0 40 02/23/16 18:00 70 22 84/44 95 Venturi Mask 8.0 40 02/23/16 17:45 70 18 86/62 97 Venturi Mask 8.0 40 02/23/16 17:30 70 20 82/51 90 Venturi Mask 8.0 40 02/23/16 17:30 70 21 82/54 92 Venturi Mask 8.0 40 02/23/16 17:15 70 22 81/43 92 Venturi Mask 8.0 40 02/23/16 17:00 71 22 87/42 92 Venturi Mask 8.0 40 02/23/16 16:45 71 22 82/45 94 Venturi Mask 6.0 35 02/23/16 16:30 70 22 102/54 94 Venturi Mask 6.0 35 02/23/16 16:15 70 22 92/46 94 Venturi Mask 6.0 35 02/23/16 16:00 70 20 84/52 93 Venturi Mask 6.0 35 02/23/16 16:00 72 02/23/16 15:45 70 20 96/49 93 Venturi Mask 6.0 35 02/23/16 15:30 98.1 71 22 89/42 95 Venturi Mask 6.0 35 02/23/16 15:15 70 99/53 Venturi Mask 35 02/23/16 15:14 70 20 93 Venturi Mask 6.0 35 02/23/16 15:04 35 02/23/16 15:03 70 20 92 Venturi Mask 6.0 35 02/23/16 15:00 70 99/39 Venturi Mask 35 02/23/16 15:00 99/39 02/23/16 14:45 70 99/37 Venturi Mask 35 02/23/16 14:30 70 98/40 Venturi Mask 35 02/23/16 14:15 70 91/28 Bi-pap 35 02/23/16 14:00 95/51 02/23/16 14:00 70 100/48 Bi-pap 35 02/23/16 13:45 70 99/44 Bi-pap 35 02/23/16 13:31 97/43 02/23/16 13:30 70 91/65 Bi-pap 35 02/23/16 13:25 70 19 93 Facial 6.0 35 02/23/16 13:15 70 92/49 Bi-pap 35 02/23/16 13:00 70 107/51 Bi-pap 35 02/23/16 13:00 106/72 02/23/16 12:45 70 98/46 Bi-pap 35 02/23/16 12:30 70 90/67 Bi-pap 35 02/23/16 12:15 70 95/46 Bi-pap 35 02/23/16 12:00 97/39 02/23/16 12:00 70 02/23/16 12:00 96.5 70 97/39 Bi-pap 35 02/23/16 11:45 70 103/50 Bi-pap 35 02/23/16 11:30 70 103/50 Bi-pap 35 02/23/16 11:28 70 20 96 Bi-pap 6.0 35 02/23/16 11:20 70 28 90 Facial 6.0 35 02/23/16 11:18 35 02/23/16 11:18 70 25 96 Bi-pap 6.0 35 02/23/16 11:15 70 105/54 Bi-pap 35 02/23/16 11:00 70 108/46 Bi-pap 35 02/23/16 11:00 97/39 02/23/16 10:45 70 100/54 Bi-pap 35 02/23/16 10:30 70 120/59 Bi-pap 35 02/23/16 10:15 70 117/51 Bi-pap 35 02/23/16 10:00 70 109/48 Bi-pap 35 02/23/16 10:00 105/54 02/23/16 09:45 70 105/49 Bi-pap 35 02/23/16 09:30 70 103/57 Bi-pap 35 02/23/16 09:15 70 106/55 Bi-pap 35 02/23/16 09:00 106/35 02/23/16 09:00 70 102/58 Bi-pap 35 02/23/16 08:45 70 104/75 Bi-pap 35 02/23/16 08:40 70 25 90 Facial 6.0 35 02/23/16 08:40 Bi-pap 35 02/23/16 08:40 96.0 70 109/51 Bi-pap 35 02/23/16 08:30 70 109/51 Bi-pap 35 02/23/16 08:15 70 105/44 Bi-pap 35 02/23/16 08:00 70 02/23/16 08:00 96/41 02/23/16 08:00 96.6 70 96/1 Bi-pap 35 02/23/16 07:50 70 25 96 Bi-pap 6.0 35 02/23/16 07:45 70 97/51 Bi-pap 35 02/23/16 07:41 70 27 90 Facial 6.0 35 02/23/16 07:40 95 Bi-pap 6.0 35 02/23/16 07:40 Bi-pap 6.0 35 02/23/16 07:40 35 02/23/16 07:40 70 27 95 Bi-pap 6.0 35 02/23/16 07:30 70 100/67 Bi-pap 35 02/23/16 07:15 70 85/63 Bi-pap 35 02/23/16 07:00 70 100/67 Bi-pap 35 02/23/16 07:00 96/53 02/23/16 06:54 91/41 02/23/16 06:45 70 85/63 Bi-pap 35 02/23/16 06:30 70 99/43 Bi-pap 35 02/23/16 06:26 100/43 02/23/16 06:15 70 100/43 Bi-pap 35 02/23/16 06:00 70 90/50 Bi-pap 35 02/23/16 06:00 80/48 02/23/16 05:45 70 101/52 Bi-pap 35 02/23/16 05:30 70 99/54 Bi-pap 35 02/23/16 05:15 70 95/62 Bi-pap 35 02/23/16 05:12 70 25 96 Facial 35 02/23/16 05:10 Bi-pap 35 02/23/16 05:00 96.6 101/52 Bi-pap 35 02/23/16 05:00 95/62 02/23/16 04:15 70 16 103/50 97 Bi-pap 35 02/23/16 04:00 97.0 70 16 100/46 97 Bi-pap 35 02/23/16 04:00 35 02/23/16 04:00 119/54 02/23/16 04:00 70 02/23/16 03:45 70 16 100/40 97 Bi-pap 35 02/23/16 03:30 70 16 100/46 97 Bi-pap 35 02/23/16 03:30 70 16 106/46 97 Bi-pap 35 02/23/16 03:15 70 16 102/50 97 Bi-pap 35 02/23/16 03:09 70 26 97 Bi-pap 35 02/23/16 03:00 70 16 100/46 97 Bi-pap 35 02/23/16 03:00 101/53 02/23/16 03:00 70 16 112/56 97 Bi-pap 35 02/23/16 02:58 35 02/23/16 02:58 70 24 97 Bi-pap 35 02/23/16 02:57 70 24 97 Facial 35 02/23/16 02:45 70 16 106/40 97 Bi-pap 35 02/23/16 02:30 70 16 99/50 97 Bi-pap 35 02/23/16 02:15 70 16 92/40 97 Bi-pap 35 02/23/16 02:00 70 16 90/40 97 Bi-pap 35 02/23/16 02:00 113/56 02/23/16 01:45 70 16 95/40 97 Bi-pap 35 02/23/16 01:30 70 16 92/45 97 Bi-pap 35 02/23/16 01:17 72 21 95 Facial 35 02/23/16 01:15 70 16 95/40 97 Bi-pap 35 02/23/16 01:00 70 16 95/40 97 Bi-pap 35 02/23/16 01:00 100/49 02/23/16 00:45 70 16 90/46 97 Bi-pap 35 02/23/16 00:30 70 16 95/46 97 Bi-pap 35 02/23/16 00:15 70 16 92/56 97 Bi-pap 35 02/23/16 00:00 70 02/23/16 00:00 35 02/23/16 00:00 70 16 95/46 97 Bi-pap 35 02/22/16 23:57 102/56 02/22/16 23:45 70 16 90/45 97 Bi-pap 35 02/22/16 23:30 70 16 95/46 97 Bi-pap 35 02/22/16 23:15 70 22 96 Bi-pap 35 02/22/16 23:15 70 16 92/46 97 Bi-pap 35 02/22/16 23:06 35 02/22/16 23:06 70 20 94 Bi-pap 35 02/22/16 23:05 70 20 94 Facial 35 02/22/16 23:00 70 16 95/46 97 Bi-pap 35 02/22/16 22:45 70 15 91/49 97 Bi-pap 35 02/22/16 22:30 70 20 92/61 93 Bi-pap 35 02/22/16 22:15 70 20 118/52 93 Bi-pap 35 02/22/16 22:00 70 21 108/51 94 Bi-pap 35 02/22/16 21:45 70 21 99/54 94 Bi-pap 35 02/22/16 21:30 70 21 99/47 94 Bi-pap 35 02/22/16 21:15 70 19 130/87 94 Bi-pap 35 02/22/16 21:00 70 19 88/43 94 Bi-pap 35 02/22/16 20:46 35 02/22/16 20:45 70 19 106/58 94 Bi-pap 35 02/22/16 20:39 70 18 94 Full Face 35 02/22/16 20:30 70 19 106/58 93 Venturi Mask 35 02/22/16 20:15 Venturi Mask 35 02/22/16 20:00 70 02/22/16 20:00 98.2 70 19 91/51 93 Venturi Mask 35 02/22/16 19:45 70 19 106/58 93 Venturi Mask 35 Intake and Output 02/22/16 02/23/16 19:00 07:00 Intake Total 917.22 ml 1064.8 ml Output Total 805 ml 25 ml Balance 112.22 ml 1039.8 ml Intake IV Total 917.22 ml 1064.8 ml Output Urine Total 5 ml 25 ml Hemodialysis UF 800 ml # Bowel Movements 1 1 Laboratory Tests 02/23/16 04:30: White Blood Count 9.9, Red Blood Count 3.58L, Hemoglobin 10.6L, Hematocrit 34.2L , Mean Corpuscular Volume 96, Mean Corpuscular Hemoglobin 29.6, Mean Corpuscular Hemoglobin Concent 30.9L, Red Cell Distribution Width 24.2H, Platelet Count 18L, Mean Platelet Volume 7.6, Neutrophils (%) (Auto) , Lymphocytes (%) (Auto) , Monocytes (%) (Auto) , Eosinophils (%) (Auto) , Basophils (%) (Auto) , Differential Total Cells Counted 100, Neutrophils % ( Manual) 65, Lymphocytes % (Manual) 4L, Monocytes % (Manual) 8, Eosinophils % ( Manual) 18H, Basophils % (Manual) 1, Band Neutrophils 4, Platelet Estimate DecreasedL, Platelet Morphology Normal, Hypochromasia 1+, Anisocytosis 2+, Christelle Cells Occasional, Sodium Level 129L, Potassium Level 3.5, Chloride Level 90L, Carbon Dioxide Level 26, Anion Gap 13, Blood Urea Nitrogen 16, Creatinine 2.3H, Estimat Glomerular Filtration Rate , Glucose Level 102, Calcium Level 8.1L, Phosphorus Level 3.6, Magnesium Level 1.9, Total Bilirubin 1.5H, Direct Bilirubin 0.7H, Aspartate Amino Transf (AST/SGOT) 27, Alanine Aminotransferase ( ALT/SGPT) 9, Alkaline Phosphatase 151H, Total Protein 6.7, Albumin 2.7L, Globulin 3.8, Albumin/Globulin Ratio 0.7L 02/23/16 09:43: Arterial Blood pH 7.384, Arterial Blood Partial Pressure CO2 48.7H, Arterial Blood Partial Pressure O2 72.9L, Arterial Blood HCO3 28.4H, Arterial Blood Oxygen Saturation 95.3, Arterial Blood Base Excess 2.7, [place] Test Positive Height (Feet): 5 Height (Inches): 4.00 Weight (Pounds): 145 Objective General Appearance: no apparent distress, alert, lethargic - but arousable; cachetic Lines, tubes and drains: central line - R EJ, dialysis access - R cath HEENT: normocephalic, atraumatic, anicteric, PERRL, EOMI, no JVD, other - dry mm Neck: non-tender, supple Respiratory/Chest: expiratory wheezing, on vent Cardiovascular/Chest: normal peripheral pulses, normal rate, regular rhythm Abdomen: normal bowel sounds, non tender, soft, no mass Genitourinary/Rectal: leon Extremities: non-tender, normal inspection Skin Exam: warm/dry, other - ecchymoses of LLQ 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 Feb 23, 2016 19:35
[2016-02-23] MEDS: Amiodarone 200mg tab ORAL SCH (20:34)
[2016-02-23] MEDS: TraZODone HCl 25 mg tablet ORAL SCH (20:34)
[2016-02-24] VITALS (81 sets, daily range): BP systolic 36–88; BP diastolic 17–60
[2016-02-24] MEDS: Norepinephrine Bitartrate 8 MG in D5W 500ml 500 ML IV SCH ×4 (02:02→16:00)
[2016-02-24] MEDS: DuoNeb 0.5-3(2.5)mg/3ml neb HHN SCH ×4 (03:17→15:24)
[2016-02-24] MEDS: NovoLOG Insulin Flexpen SUBQ SCH ×2 (06:00)
[2016-02-24] MEDS ORDERED: Heparin Sod 1000 units/ml 10ml IV PRN (06:00)
[2016-02-24 06:03] LABS: MEAN CORPUSCULAR HEMOGLOBIN 28.8 PG (27.0-31.0); MEAN CORPUSCULAR HGB CONC 29.2 G/DL (32.0-36.0); MEAN CORPUSCULAR VOLUME 98 FL (80-99); MEAN PLATELET VOLUME 9.9 FL (6.5-10.1); PLATELET COUNT 23 K/UL (150-450); RED BLOOD COUNT 3.63 M/UL (4.70-6.10); RED CELL DISTRIBUTION WIDTH 24.2 % (11.6-14.8); WHITE BLOOD COUNT 9.5 K/UL (4.8-10.8)
[2016-02-24 06:16] LABS: ALANINE AMINOTRANSFERASE 11 U/L (3-41); ALBUMIN/GLOBULIN RATIO 0.7 (1.0-2.7); ANION GAP 11 (5-15); ASPARTATE AMINO TRANSFERASE 47 U/L (5-40); CALCIUM 8.1 mg/dL (8.6-10.2); CARBON DIOXIDE 27 mEQ/L (20-30); CHLORIDE 95 mEQ/L (98-107); CREATININE 2.2 mg/dL (0.7-1.2); HEMOLYSIS 6; POTASSIUM 3.6 mEQ/L (3.4-4.9); SODIUM 133 mEQ/L (135-145); TOTAL PROTEIN 6.5 g/dL (6.6-8.7)
[2016-02-24] MEDS ORDERED: Levophed 4mg/4mL Inj IV ONE (06:35)
[2016-02-24 07:26] LABS: BILIRUBIN,DIRECT 0.9 mg/dL (0.1-0.3)
[2016-02-24 07:37] LABS: ANION GAP 12 (5-15); CALCIUM 8.3 mg/dL (8.6-10.2); CARBON DIOXIDE 26 mEQ/L (20-30); CHLORIDE 96 mEQ/L (98-107); CREATININE 2.1 mg/dL (0.7-1.2); HEMOLYSIS 5; PHOSPHORUS 4.7 mg/dL (2.5-4.8); POTASSIUM 3.7 mEQ/L (3.4-4.9); SODIUM 134 mEQ/L (135-145)
[2016-02-24] MEDS ORDERED: Vancomycin 1gm/D5W 250ml IVPB ONE ×2 (08:00)
[2016-02-24] MEDS: Pantoprazole Inj IVP SCH (08:33)
[2016-02-24] MEDS: Docusate 100mg cap ORAL SCH (08:40)
[2016-02-24] MEDS: Miralax 17gm pkt ORAL SCH (08:40)
[2016-02-24] MEDS: Aspirin Baby 81mg ORAL SCH (08:40)
--- NOTE | 2016-02-24 10:32 | General Progress Note ---
Assessment/Plan Problem List: (1) Pulmonary edema ICD Codes: J81.1 - Chronic pulmonary edema SNOMED: 68619240 Qualifiers: Qualified Codes: J81.0 - Acute pulmonary edema (2) Hypotension ICD Codes: I95.9 - Hypotension, unspecified SNOMED: 80926568 Qualifiers: Qualified Codes: I95.89 - Other hypotension (3) Pneumonia ICD Codes: J18.9 - Pneumonia, unspecified organism SNOMED: 436423219 Qualifiers: Qualified Codes: J18.9 - Pneumonia, unspecified organism (4) ESRD (end stage renal disease) on dialysis ICD Codes: N18.6 - End stage renal disease; Z99.2 - Dependence on renal dialysis SNOMED: 202681508 (5) Respiratory failure ICD Codes: J96.90 - Respiratory failure, unspecified, unspecified whether with hypoxia or hypercapnia SNOMED: 878849968 Qualifiers: Qualified Codes: J96.01 - Acute respiratory failure with hypoxia; J96.02 - Acute respiratory failure with hypercapnia (6) Hypoxia ICD Codes: R09.02 - Hypoxemia SNOMED: 44263229, 437401865 (7) CAD (coronary artery disease) ICD Codes: I25.10 - Atherosclerotic heart disease of [place] coronary artery without angina pectoris SNOMED: 19099187 (8) Ischemic cardiomyopathy ICD Codes: I25.5 - Ischemic cardiomyopathy SNOMED: 502962519 (9) COPD (chronic obstructive pulmonary disease) ICD Codes: J44.9 - Chronic obstructive pulmonary disease, unspecified SNOMED: 49564903 (10) Thrombocytopenia ICD Codes: D69.6 - Thrombocytopenia, unspecified SNOMED: 607081903 (11) Encephalopathy ICD Codes: G93.40 - Encephalopathy, unspecified SNOMED: 81026772, 494101549 (12) PVD (peripheral vascular disease) ICD Codes: I73.9 - Peripheral vascular disease, unspecified SNOMED: 987757890 (13) A-fib ICD Codes: I48.91 - Unspecified atrial fibrillation SNOMED: 01291116 (14) HTN (hypertension) ICD Codes: I10 - Essential (primary) hypertension SNOMED: 60250797 (15) DM type 2 (diabetes mellitus, type 2) ICD Codes: E11.9 - Type 2 diabetes mellitus without complications SNOMED: 21705712 (16) HLD (hyperlipidemia) ICD Codes: E78.5 - Hyperlipidemia, unspecified SNOMED: 92590882 (17) Septic shock ICD Codes: A41.9 - Sepsis, unspecified organism; R65.21 - Severe sepsis with septic shock SNOMED: 97727866 Assessment/Plan Pt admitted to ICU intubated for ventilatory support for acute hypoxic respiratory failure. Now extubated and on venturi mask Dr. Marin of pul crit conslted; appreciate involvement Dr. Keita of cards c/s'd, appreciate involvement cont atc duo nebs Zosyn, vanc and azithromycin, HCAP v CAP Dr. Mcnamara of Nephrology c/s'd; resumed HD cont home meds hold eliquis and pharm dvt ppx; scd only f/u DIC panel--D dimer high Discussion held with daughter regarding GOC and possibly transitioning to comfort measures. Subjective Date patient seen: Feb 24, 2016 Time patient seen: 10:28 Allergies: Coded Allergies: No Known Allergies (Unverified , 02/20/16) Subjective no acute events o/n; pt still on pressors; doing well s/p extubation Objective Last 24 Hour Vital Signs Date Time Temp Pulse Resp B/P Pulse Ox O2 Delivery O2 Flow Rate FiO2 02/24/16 08:00 70 02/24/16 07:40 70 18 93 Venturi Mask 14.0 55 02/24/16 07:40 70 20 94 Venturi Mask 14.0 55 02/24/16 07:40 55 02/24/16 07:39 94 Venturi Mask 14.0 55 02/24/16 07:39 Venturi Mask 14.0 55 02/24/16 07:00 70 17 82/48 96 Venturi Mask 14.0 55 02/24/16 06:45 70 16 84/48 95 Venturi Mask 14.0 55 02/24/16 06:39 74/46 02/24/16 06:30 70 17 74/46 95 Venturi Mask 14.0 55 02/24/16 06:15 70 16 70/21 94 Venturi Mask 14.0 55 02/24/16 06:00 70 16 78/51 94 Venturi Mask 14.0 55 02/24/16 05:45 70 16 78/49 95 Venturi Mask 14.0 55 02/24/16 05:30 70 17 76/46 95 Venturi Mask 14.0 55 02/24/16 05:15 70 17 85/35 95 Venturi Mask 14.0 55 02/24/16 05:10 96.0 70 17 79/42 95 Simple Mask 10.0 02/24/16 05:00 70 18 86/38 95 Venturi Mask 14.0 55 02/24/16 04:45 70 17 81/46 95 Venturi Mask 14.0 55 02/24/16 04:30 70 17 75/47 95 Venturi Mask 14.0 55 02/24/16 04:15 70 17 69/44 96 Venturi Mask 14.0 55 02/24/16 04:00 97.4 70 17 75/47 96 Venturi Mask 14.0 55 02/24/16 04:00 70 02/24/16 03:45 70 17 71/43 96 Venturi Mask 14.0 55 02/24/16 03:32 70 16 97 Venturi Mask 14.0 55 02/24/16 03:30 70 17 74/42 96 Venturi Mask 14.0 55 02/24/16 03:17 55 02/24/16 03:16 70 24 96 Venturi Mask 14.0 55 02/24/16 03:15 70 19 73/45 96 Venturi Mask 14.0 55 02/24/16 03:00 70 19 80/53 96 Venturi Mask 14.0 55 02/24/16 02:45 70 17 74/48 96 Venturi Mask 14.0 55 02/24/16 02:30 70 15 74/51 96 Venturi Mask 14.0 55 02/24/16 02:15 70 17 73/40 96 Venturi Mask 14.0 55 02/24/16 02:02 74/22 02/24/16 02:00 70 16 72/49 96 Venturi Mask 14.0 55 02/24/16 01:45 70 17 74/22 96 Venturi Mask 14.0 55 02/24/16 01:30 70 17 79/46 96 Venturi Mask 14.0 55 02/24/16 01:15 70 17 79/46 96 Venturi Mask 14.0 55 02/24/16 01:00 70 17 79/47 96 Venturi Mask 14.0 55 02/24/16 00:45 70 16 82/44 96 Venturi Mask 14.0 55 02/24/16 00:30 70 17 77/47 94 Venturi Mask 14.0 55 02/24/16 00:15 70 16 80/45 94 Venturi Mask 14.0 55 02/24/16 00:00 70 02/24/16 00:00 97.0 70 17 79/50 94 Venturi Mask 14.0 55 02/23/16 23:00 70 21 78/42 94 Venturi Mask 14.0 55 02/23/16 22:45 70 20 78/43 95 Venturi Mask 14.0 55 02/23/16 22:31 70 18 98 Venturi Mask 14.0 55 02/23/16 22:30 70 22 76/45 92 Venturi Mask 8.0 40 02/23/16 22:20 55 02/23/16 22:20 70 26 95 Venturi Mask 14.0 55 02/23/16 22:15 70 22 85/41 98 Venturi Mask 8.0 40 02/23/16 22:00 70 24 78/40 94 Venturi Mask 8.0 40 02/23/16 21:45 70 22 72/40 94 Venturi Mask 8.0 40 02/23/16 21:34 75/41 02/23/16 21:30 70 24 75/41 93 Venturi Mask 8.0 40 02/23/16 21:15 70 24 75/41 93 Venturi Mask 8.0 40 02/23/16 21:00 70 26 75/43 93 Venturi Mask 8.0 40 02/23/16 20:45 70 26 83/41 93 Venturi Mask 8.0 40 02/23/16 20:30 70 24 82/42 93 Venturi Mask 8.0 40 02/23/16 20:15 70 19 82/46 93 Venturi Mask 8.0 40 02/23/16 20:15 70 20 82/46 93 Venturi Mask 8.0 40 02/23/16 20:00 70 02/23/16 20:00 97.8 70 20 82/46 93 Venturi Mask 8.0 40 02/23/16 20:00 97.9 70 20 82/46 93 Venturi Mask 8.0 40 02/23/16 19:45 70 20 82/44 93 Venturi Mask 8.0 40 02/23/16 19:45 70 20 82/46 93 Venturi Mask 8.0 40 02/23/16 19:30 70 20 85/44 93 Venturi Mask 8.0 40 02/23/16 19:25 70 25 95 Venturi Mask 8.0 40 02/23/16 19:15 71 20 87/50 93 Venturi Mask 8.0 40 02/23/16 19:15 70 20 83/46 92 Venturi Mask 8.0 40 02/23/16 19:15 40 02/23/16 19:14 Venturi Mask 8.0 40 02/23/16 19:14 70 26 93 Venturi Mask 8.0 40 02/23/16 19:14 93 Venturi Mask 8.0 40 02/23/16 19:00 70 22 82/44 92 Venturi Mask 8.0 40 02/23/16 19:00 70 20 83/46 92 Venturi Mask 8.0 40 02/23/16 18:45 70 20 79/46 92 Venturi Mask 8.0 40 02/23/16 18:45 71 20 90/42 92 Venturi Mask 8.0 40 02/23/16 18:30 71 20 92/44 92 Venturi Mask 8.0 40 02/23/16 18:15 70 22 80/43 95 Venturi Mask 8.0 40 02/23/16 18:00 70 22 84/44 95 Venturi Mask 8.0 40 02/23/16 17:45 70 18 86/62 97 Venturi Mask 8.0 40 02/23/16 17:30 70 20 82/51 90 Venturi Mask 8.0 40 02/23/16 17:30 70 21 82/54 92 Venturi Mask 8.0 40 02/23/16 17:15 70 22 81/43 92 Venturi Mask 8.0 40 02/23/16 17:00 71 22 87/42 92 Venturi Mask 8.0 40 02/23/16 16:45 71 22 82/45 94 Venturi Mask 6.0 35 02/23/16 16:30 70 22 102/54 94 Venturi Mask 6.0 35 02/23/16 16:15 70 22 92/46 94 Venturi Mask 6.0 35 02/23/16 16:00 70 20 84/52 93 Venturi Mask 6.0 35 02/23/16 16:00 72 02/23/16 15:45 70 20 96/49 93 Venturi Mask 6.0 35 02/23/16 15:30 98.1 71 22 89/42 95 Venturi Mask 6.0 35 02/23/16 15:15 70 99/53 Venturi Mask 35 02/23/16 15:14 70 20 93 Venturi Mask 6.0 35 02/23/16 15:04 35 02/23/16 15:03 70 20 92 Venturi Mask 6.0 35 02/23/16 15:00 70 99/39 Venturi Mask 35 02/23/16 15:00 99/39 02/23/16 14:45 70 99/37 Venturi Mask 35 02/23/16 14:30 70 98/40 Venturi Mask 35 02/23/16 14:15 70 91/28 Bi-pap 35 02/23/16 14:00 95/51 02/23/16 14:00 70 100/48 Bi-pap 35 02/23/16 13:45 70 99/44 Bi-pap 35 02/23/16 13:31 97/43 02/23/16 13:30 70 91/65 Bi-pap 35 02/23/16 13:25 70 19 93 Facial 6.0 35 02/23/16 13:15 70 92/49 Bi-pap 35 02/23/16 13:00 70 107/51 Bi-pap 35 02/23/16 13:00 106/72 02/23/16 12:45 70 98/46 Bi-pap 35 02/23/16 12:30 70 90/67 Bi-pap 35 02/23/16 12:15 70 95/46 Bi-pap 35 02/23/16 12:00 97/39 02/23/16 12:00 70 02/23/16 12:00 96.5 70 97/39 Bi-pap 35 02/23/16 11:45 70 103/50 Bi-pap 35 02/23/16 11:30 70 103/50 Bi-pap 35 02/23/16 11:28 70 20 96 Bi-pap 6.0 35 02/23/16 11:20 70 28 90 Facial 6.0 35 02/23/16 11:18 35 02/23/16 11:18 70 25 96 Bi-pap 6.0 35 02/23/16 11:15 70 105/54 Bi-pap 35 02/23/16 11:00 70 108/46 Bi-pap 35 02/23/16 11:00 97/39 02/23/16 10:45 70 100/54 Bi-pap 35 02/23/16 10:30 70 120/59 Bi-pap 35 Intake and Output 02/23/16 02/24/16 19:00 07:00 Intake Total 1027.71 ml 1249.45 ml Output Total 1505 ml 21 ml Balance -477.29 ml 1228.45 ml Intake IV Total 1027.71 ml 1249.45 ml Output Urine Total 5 ml 21 ml Hemodialysis UF 1500 ml Laboratory Tests 02/24/16 05:20: White Blood Count 9.5, Red Blood Count 3.63L, Hemoglobin 10.5L, Hematocrit 35.8L , Mean Corpuscular Volume 98, Mean Corpuscular Hemoglobin 28.8, Mean Corpuscular Hemoglobin Concent 29.2L, Red Cell Distribution Width 24.2H, Platelet Count 23L, Mean Platelet Volume 9.9, Neutrophils (%) (Auto) , Lymphocytes (%) (Auto) , Monocytes (%) (Auto) , Eosinophils (%) (Auto) , Basophils (%) (Auto) , Neutrophils % (Manual) [Pending], Lymphocytes % (Manual) [Pending], Platelet Estimate [Pending], Platelet Morphology [Pending], Sodium Level 134L, Potassium Level 3.7, Chloride Level 96L, Carbon Dioxide Level 26, Anion Gap 12, Blood Urea Nitrogen 13, Creatinine 2.1H, Estimat Glomerular Filtration Rate , Glucose Level 107H, Calcium Level 8.3L, Phosphorus Level 4.7, Total Bilirubin 1.7H, Direct Bilirubin 0.9H, Aspartate Amino Transf (AST/SGOT) 47H, Alanine Aminotransferase (ALT/SGPT) 11, Alkaline Phosphatase 188H, Total Protein 6.5L, Albumin 2.9L, Globulin 3.7, Albumin/Globulin Ratio 0.7L, Random Vancomycin Level 11.3 Height (Feet): 5 Height (Inches): 4.00 Weight (Pounds): 145 Objective General Appearance: no apparent distress, alert, lethargic; cachetic Lines, tubes and drains: central line - R EJ, dialysis access - R cath HEENT: normocephalic, atraumatic, anicteric, PERRL, EOMI, no JVD, other - blood crusting nasal or oral surfaces Neck: non-tender, supple Respiratory/Chest: expiratory wheezing, on vent Cardiovascular/Chest: normal peripheral pulses, normal rate, regular rhythm Abdomen: normal bowel sounds, non tender, soft, no mass Genitourinary/Rectal: leon Extremities: non-tender, normal inspection Skin Exam: warm/dry, other - ecchymoses of LLQ Neurologic: sledger II-XII grossly normal, no motor/sensory deficits, alert, responsive Musculoskeletal: normal muscle bulk Bran Gomez M.D. Feb 24, 2016 10:32
[2016-02-24 10:33] LABS: BAND NEUTROPHILS % (MANUAL) 1 % (0-8); BASOPHILS % (MANUAL) 0 % (0-2); EOSINOPHILS % (MANUAL) 12 % (0-3); LYMPHOCYTES % (MANUAL) 5 % (20-45); NEUTROPHILS % (MANUAL) 75 % (45-75); PLATELET ESTIMATE DECREASED; PLATELET MORPHOLOGY NORMAL; TOTAL CELLS COUNTED 100
[2016-02-24 10:34] LABS: ANISOCYTOSIS 2+; BURR CELLS 1+; MACROCYTES 1+
--- NOTE | 2016-02-24 10:34 | Pulmonolgy Critical Care Note ---
Critical Care - Asmt/Plan Problems: (1) Respiratory failure (2) Severe sepsis (3) Hypotension (4) A-fib (5) COPD (chronic obstructive pulmonary disease) (6) Ischemic cardiomyopathy (7) Presence of biventricular AICD (8) ESRD (end stage renal disease) on dialysis Respiratory: monitor respiratory rate Notes Reviewed: closing specialist, cardio Discussed with: nurses, window caser, other - i had a conversation with pts daughter Heydi, she agrees with comfort care. I talked to pts skilled nursing girlfriend Reyna, who agrees with comfort care as well. The plan is to stop the levophed drip and start morphin drip as soon as they get here. Critical Care - Objective Last 24 Hour Vital Signs Date Time Temp Pulse Resp B/P Pulse Ox O2 Delivery O2 Flow Rate FiO2 02/24/16 08:00 70 02/24/16 07:40 70 18 93 Venturi Mask 14.0 55 02/24/16 07:40 70 20 94 Venturi Mask 14.0 55 02/24/16 07:40 55 02/24/16 07:39 94 Venturi Mask 14.0 55 02/24/16 07:39 Venturi Mask 14.0 55 02/24/16 07:00 70 17 82/48 96 Venturi Mask 14.0 55 02/24/16 06:45 70 16 84/48 95 Venturi Mask 14.0 55 02/24/16 06:39 74/46 02/24/16 06:30 70 17 74/46 95 Venturi Mask 14.0 55 02/24/16 06:15 70 16 70/21 94 Venturi Mask 14.0 55 02/24/16 06:00 70 16 78/51 94 Venturi Mask 14.0 55 02/24/16 05:45 70 16 78/49 95 Venturi Mask 14.0 55 02/24/16 05:30 70 17 76/46 95 Venturi Mask 14.0 55 02/24/16 05:15 70 17 85/35 95 Venturi Mask 14.0 55 02/24/16 05:10 96.0 70 17 79/42 95 Simple Mask 10.0 02/24/16 05:00 70 18 86/38 95 Venturi Mask 14.0 55 02/24/16 04:45 70 17 81/46 95 Venturi Mask 14.0 55 02/24/16 04:30 70 17 75/47 95 Venturi Mask 14.0 55 02/24/16 04:15 70 17 69/44 96 Venturi Mask 14.0 55 02/24/16 04:00 97.4 70 17 75/47 96 Venturi Mask 14.0 55 02/24/16 04:00 70 02/24/16 03:45 70 17 71/43 96 Venturi Mask 14.0 55 02/24/16 03:32 70 16 97 Venturi Mask 14.0 55 02/24/16 03:30 70 17 74/42 96 Venturi Mask 14.0 55 02/24/16 03:17 55 02/24/16 03:16 70 24 96 Venturi Mask 14.0 55 02/24/16 03:15 70 19 73/45 96 Venturi Mask 14.0 55 02/24/16 03:00 70 19 80/53 96 Venturi Mask 14.0 55 02/24/16 02:45 70 17 74/48 96 Venturi Mask 14.0 55 02/24/16 02:30 70 15 74/51 96 Venturi Mask 14.0 55 02/24/16 02:15 70 17 73/40 96 Venturi Mask 14.0 55 02/24/16 02:02 74/22 02/24/16 02:00 70 16 72/49 96 Venturi Mask 14.0 55 02/24/16 01:45 70 17 74/22 96 Venturi Mask 14.0 55 02/24/16 01:30 70 17 79/46 96 Venturi Mask 14.0 55 02/24/16 01:15 70 17 79/46 96 Venturi Mask 14.0 55 02/24/16 01:00 70 17 79/47 96 Venturi Mask 14.0 55 02/24/16 00:45 70 16 82/44 96 Venturi Mask 14.0 55 02/24/16 00:30 70 17 77/47 94 Venturi Mask 14.0 55 02/24/16 00:15 70 16 80/45 94 Venturi Mask 14.0 55 02/24/16 00:00 70 02/24/16 00:00 97.0 70 17 79/50 94 Venturi Mask 14.0 55 02/23/16 23:00 70 21 78/42 94 Venturi Mask 14.0 55 02/23/16 22:45 70 20 78/43 95 Venturi Mask 14.0 55 02/23/16 22:31 70 18 98 Venturi Mask 14.0 55 02/23/16 22:30 70 22 76/45 92 Venturi Mask 8.0 40 02/23/16 22:20 55 02/23/16 22:20 70 26 95 Venturi Mask 14.0 55 02/23/16 22:15 70 22 85/41 98 Venturi Mask 8.0 40 02/23/16 22:00 70 24 78/40 94 Venturi Mask 8.0 40 02/23/16 21:45 70 22 72/40 94 Venturi Mask 8.0 40 02/23/16 21:34 75/41 02/23/16 21:30 70 24 75/41 93 Venturi Mask 8.0 40 02/23/16 21:15 70 24 75/41 93 Venturi Mask 8.0 40 02/23/16 21:00 70 26 75/43 93 Venturi Mask 8.0 40 02/23/16 20:45 70 26 83/41 93 Venturi Mask 8.0 40 02/23/16 20:30 70 24 82/42 93 Venturi Mask 8.0 40 02/23/16 20:15 70 19 82/46 93 Venturi Mask 8.0 40 02/23/16 20:15 70 20 82/46 93 Venturi Mask 8.0 40 02/23/16 20:00 70 02/23/16 20:00 97.8 70 20 82/46 93 Venturi Mask 8.0 40 02/23/16 20:00 97.9 70 20 82/46 93 Venturi Mask 8.0 40 02/23/16 19:45 70 20 82/44 93 Venturi Mask 8.0 40 02/23/16 19:45 70 20 82/46 93 Venturi Mask 8.0 40 02/23/16 19:30 70 20 85/44 93 Venturi Mask 8.0 40 02/23/16 19:25 70 25 95 Venturi Mask 8.0 40 02/23/16 19:15 71 20 87/50 93 Venturi Mask 8.0 40 02/23/16 19:15 70 20 83/46 92 Venturi Mask 8.0 40 02/23/16 19:15 40 02/23/16 19:14 Venturi Mask 8.0 40 02/23/16 19:14 70 26 93 Venturi Mask 8.0 40 02/23/16 19:14 93 Venturi Mask 8.0 40 02/23/16 19:00 70 22 82/44 92 Venturi Mask 8.0 40 02/23/16 19:00 70 20 83/46 92 Venturi Mask 8.0 40 02/23/16 18:45 70 20 79/46 92 Venturi Mask 8.0 40 02/23/16 18:45 71 20 90/42 92 Venturi Mask 8.0 40 02/23/16 18:30 71 20 92/44 92 Venturi Mask 8.0 40 02/23/16 18:15 70 22 80/43 95 Venturi Mask 8.0 40 02/23/16 18:00 70 22 84/44 95 Venturi Mask 8.0 40 02/23/16 17:45 70 18 86/62 97 Venturi Mask 8.0 40 02/23/16 17:30 70 20 82/51 90 Venturi Mask 8.0 40 02/23/16 17:30 70 21 82/54 92 Venturi Mask 8.0 40 02/23/16 17:15 70 22 81/43 92 Venturi Mask 8.0 40 02/23/16 17:00 71 22 87/42 92 Venturi Mask 8.0 40 02/23/16 16:45 71 22 82/45 94 Venturi Mask 6.0 35 02/23/16 16:30 70 22 102/54 94 Venturi Mask 6.0 35 02/23/16 16:15 70 22 92/46 94 Venturi Mask 6.0 35 02/23/16 16:00 70 20 84/52 93 Venturi Mask 6.0 35 02/23/16 16:00 72 02/23/16 15:45 70 20 96/49 93 Venturi Mask 6.0 35 02/23/16 15:30 98.1 71 22 89/42 95 Venturi Mask 6.0 35 02/23/16 15:15 70 99/53 Venturi Mask 35 02/23/16 15:14 70 20 93 Venturi Mask 6.0 35 02/23/16 15:04 35 02/23/16 15:03 70 20 92 Venturi Mask 6.0 35 02/23/16 15:00 70 99/39 Venturi Mask 35 02/23/16 15:00 99/39 02/23/16 14:45 70 99/37 Venturi Mask 35 02/23/16 14:30 70 98/40 Venturi Mask 35 02/23/16 14:15 70 91/28 Bi-pap 35 02/23/16 14:00 95/51 02/23/16 14:00 70 100/48 Bi-pap 35 02/23/16 13:45 70 99/44 Bi-pap 35 02/23/16 13:31 97/43 02/23/16 13:30 70 91/65 Bi-pap 35 02/23/16 13:25 70 19 93 Facial 6.0 35 02/23/16 13:15 70 92/49 Bi-pap 35 02/23/16 13:00 70 107/51 Bi-pap 35 02/23/16 13:00 106/72 02/23/16 12:45 70 98/46 Bi-pap 35 02/23/16 12:30 70 90/67 Bi-pap 35 02/23/16 12:15 70 95/46 Bi-pap 35 02/23/16 12:00 97/39 02/23/16 12:00 70 02/23/16 12:00 96.5 70 97/39 Bi-pap 35 02/23/16 11:45 70 103/50 Bi-pap 35 02/23/16 11:30 70 103/50 Bi-pap 35 02/23/16 11:28 70 20 96 Bi-pap 6.0 35 02/23/16 11:20 70 28 90 Facial 6.0 35 02/23/16 11:18 35 02/23/16 11:18 70 25 96 Bi-pap 6.0 35 02/23/16 11:15 70 105/54 Bi-pap 35 02/23/16 11:00 70 108/46 Bi-pap 35 02/23/16 11:00 97/39 02/23/16 10:45 70 100/54 Bi-pap 35 02/23/16 10:30 70 120/59 Bi-pap 35 Status: awake Condition: critical, improving HEENT: atraumatic Neck: full ROM Lungs: clear Heart: HR/BP stable Abdomen: soft, non-tender, active bowel sounds Extremities: no C/C/E Micro: Microbiology Date/Time Source Procedure Growth Status 02/21/16 16:15 Sputum Gram Stain - Final Resulted 02/21/16 16:15 Sputum Sputum Culture Pending Resulted Accucheck: 96 Critical Care - Subjective ROS Limited/Unobtainable: Yes ICU Day: 6 Condition: critical, grave EKG Rhythm: V-Paced FI02: 55 Vent Support Breath Rate: 20 Vent Support Mode: AC Vent Tidal Volume: 550 Sputum Amount: Scant PEEP: 5.0 PIP: 25 Drips: levophed drip I&O: Intake and Output 02/23/16 02/24/16 19:00 07:00 Intake Total 1027.71 ml 1249.45 ml Output Total 1505 ml 21 ml Balance -477.29 ml 1228.45 ml Intake IV Total 1027.71 ml 1249.45 ml Output Urine Total 5 ml 21 ml Hemodialysis UF 1500 ml CXR: no change ET-Tube: 7.5 ET Position: 24 Labs: Laboratory Tests Test 02/24/16 05:20 White Blood Count 9.5 K/UL (4.8-10.8) Red Blood Count 3.63 M/UL (4.70-6.10) L Hemoglobin 10.5 G/DL (14.2-18.0) L Hematocrit 35.8 % (42.0-52.0) L Mean Corpuscular Volume 98 FL (80-99) Mean Corpuscular Hemoglobin 28.8 PG (27.0-31.0) Mean Corpuscular Hemoglobin Concent 29.2 G/DL (32.0-36.0) L Red Cell Distribution Width 24.2 % (11.6-14.8) H Platelet Count 23 K/UL (150-450) L Mean Platelet Volume 9.9 FL (6.5-10.1) Neutrophils (%) (Auto) % (45.0-75.0) Lymphocytes (%) (Auto) % (20.0-45.0) Monocytes (%) (Auto) % (1.0-10.0) Eosinophils (%) (Auto) % (0.0-3.0) Basophils (%) (Auto) % (0.0-2.0) Neutrophils % (Manual) Pending Lymphocytes % (Manual) Pending Platelet Estimate Pending Platelet Morphology Pending Sodium Level 134 mEQ/L (135-145) L Potassium Level 3.7 mEQ/L (3.4-4.9) Chloride Level 96 mEQ/L (98-107) L Carbon Dioxide Level 26 mEQ/L (20-30) Anion Gap 12 (5-15) Blood Urea Nitrogen 13 mg/dL (7-23) Creatinine 2.1 mg/dL (0.7-1.2) H Estimat Glomerular Filtration Rate mL/min (>60) Glucose Level 107 mg/dL (74-106) H Calcium Level 8.3 mg/dL (8.6-10.2) L Phosphorus Level 4.7 mg/dL (2.5-4.8) Total Bilirubin 1.7 mg/dL (0.0-1.2) H Direct Bilirubin 0.9 mg/dL (0.1-0.3) H Aspartate Amino Transf (AST/SGOT) 47 U/L (5-40) H Alanine Aminotransferase (ALT/SGPT) 11 U/L (3-41) Alkaline Phosphatase 188 U/L (40-129) H Total Protein 6.5 g/dL (6.6-8.7) L Albumin 2.9 g/dL (3.5-5.2) L Globulin 3.7 g/dL Albumin/Globulin Ratio 0.7 (1.0-2.7) L Random Vancomycin Level 11.3 ug/mL JOSE LUIS ATKINS Feb 24, 2016 10:34
[2016-02-24 10:35] LABS: HYPOCHROMASIA 1+
--- NOTE | 2016-02-24 14:03 | Nephrology Progress Note ---
Assessment/Plan Problem List: (1) CAD (coronary artery disease) (2) Ischemic cardiomyopathy (3) COPD (chronic obstructive pulmonary disease) (4) Encephalopathy (5) PVD (peripheral vascular disease) (6) DM type 2 (diabetes mellitus, type 2) (7) Hypoxia (8) Septic shock (9) Pulmonary edema (10) Respiratory failure (11) ESRD (end stage renal disease) on dialysis (12) Hypotension Assessment bp low on pressors, family wants palliative care Subjective ROS Limited/Unobtainable: Yes Objective Objective Last 24 Hour Vital Signs Date Time Temp Pulse Resp B/P Pulse Ox O2 Delivery O2 Flow Rate FiO2 02/24/16 13:45 70 14 64/40 85 Venturi Mask 14.0 55 02/24/16 13:30 70 14 64/40 86 Venturi Mask 14.0 55 02/24/16 13:15 70 14 69/47 86 Venturi Mask 14.0 55 02/24/16 13:00 70 14 69/47 89 Venturi Mask 14.0 55 02/24/16 12:45 70 14 67/39 89 Venturi Mask 14.0 55 02/24/16 12:30 70 14 66/41 89 Venturi Mask 14.0 55 02/24/16 12:15 70 14 63/39 89 Venturi Mask 14.0 55 02/24/16 12:00 70 02/24/16 12:00 67/39 02/24/16 12:00 70 14 67/39 89 Venturi Mask 14.0 55 02/24/16 11:45 97.2 70 14 66/39 89 Venturi Mask 14.0 55 02/24/16 11:30 70 14 60/37 89 Venturi Mask 14.0 55 02/24/16 11:28 63/37 02/24/16 11:15 70 13 63/37 89 Venturi Mask 14.0 55 02/24/16 11:01 70 16 90 Venturi Mask 14.0 55 02/24/16 11:00 65/41 02/24/16 11:00 70 13 65/41 89 Venturi Mask 14.0 55 02/24/16 10:47 55 02/24/16 10:46 70 13 90 Venturi Mask 14.0 55 02/24/16 10:30 70 13 67/42 89 Venturi Mask 14.0 55 02/24/16 10:15 70 14 67/42 89 Venturi Mask 14.0 55 02/24/16 10:00 70 15 67/42 89 Venturi Mask 14.0 55 02/24/16 10:00 67/42 02/24/16 09:45 70 15 72/44 93 Venturi Mask 14.0 55 02/24/16 09:30 70 17 70/43 92 Venturi Mask 14.0 55 02/24/16 09:15 70 16 71/45 91 Venturi Mask 14.0 55 02/24/16 09:00 70 18 73/60 92 Venturi Mask 14.0 55 02/24/16 09:00 73/60 02/24/16 08:45 70 18 73/44 89 Venturi Mask 14.0 55 02/24/16 08:30 70 15 88/47 88 Venturi Mask 14.0 55 02/24/16 08:15 70 15 72/40 85 Venturi Mask 14.0 55 02/24/16 08:00 70 14 78/47 88 Venturi Mask 14.0 55 02/24/16 08:00 78/47 02/24/16 08:00 70 02/24/16 07:45 70 14 78/47 88 Venturi Mask 14.0 55 02/24/16 07:40 70 18 93 Venturi Mask 14.0 55 02/24/16 07:40 70 20 94 Venturi Mask 14.0 55 02/24/16 07:40 55 02/24/16 07:39 94 Venturi Mask 14.0 55 02/24/16 07:39 Venturi Mask 14.0 55 02/24/16 07:30 70 17 79/47 88 Venturi Mask 14.0 55 02/24/16 07:15 70 19 77/50 93 Venturi Mask 14.0 55 02/24/16 07:00 70 17 82/48 96 Venturi Mask 14.0 55 02/24/16 06:45 70 16 84/48 95 Venturi Mask 14.0 55 02/24/16 06:39 74/46 02/24/16 06:30 70 17 74/46 95 Venturi Mask 14.0 55 02/24/16 06:15 70 16 70/21 94 Venturi Mask 14.0 55 02/24/16 06:00 70 16 78/51 94 Venturi Mask 14.0 55 02/24/16 05:45 70 16 78/49 95 Venturi Mask 14.0 55 02/24/16 05:30 70 17 76/46 95 Venturi Mask 14.0 55 02/24/16 05:15 70 17 85/35 95 Venturi Mask 14.0 55 02/24/16 05:10 96.0 70 17 79/42 95 Simple Mask 10.0 02/24/16 05:00 70 18 86/38 95 Venturi Mask 14.0 55 02/24/16 04:45 70 17 81/46 95 Venturi Mask 14.0 55 02/24/16 04:30 70 17 75/47 95 Venturi Mask 14.0 55 02/24/16 04:15 70 17 69/44 96 Venturi Mask 14.0 55 02/24/16 04:00 97.4 70 17 75/47 96 Venturi Mask 14.0 55 02/24/16 04:00 70 02/24/16 03:45 70 17 71/43 96 Venturi Mask 14.0 55 02/24/16 03:32 70 16 97 Venturi Mask 14.0 55 02/24/16 03:30 70 17 74/42 96 Venturi Mask 14.0 55 02/24/16 03:17 55 02/24/16 03:16 70 24 96 Venturi Mask 14.0 55 02/24/16 03:15 70 19 73/45 96 Venturi Mask 14.0 55 02/24/16 03:00 70 19 80/53 96 Venturi Mask 14.0 55 02/24/16 02:45 70 17 74/48 96 Venturi Mask 14.0 55 02/24/16 02:30 70 15 74/51 96 Venturi Mask 14.0 55 02/24/16 02:15 70 17 73/40 96 Venturi Mask 14.0 55 02/24/16 02:02 74/22 02/24/16 02:00 70 16 72/49 96 Venturi Mask 14.0 55 02/24/16 01:45 70 17 74/22 96 Venturi Mask 14.0 55 02/24/16 01:30 70 17 79/46 96 Venturi Mask 14.0 55 02/24/16 01:15 70 17 79/46 96 Venturi Mask 14.0 55 02/24/16 01:00 70 17 79/47 96 Venturi Mask 14.0 55 02/24/16 00:45 70 16 82/44 96 Venturi Mask 14.0 55 02/24/16 00:30 70 17 77/47 94 Venturi Mask 14.0 55 02/24/16 00:15 70 16 80/45 94 Venturi Mask 14.0 55 02/24/16 00:00 70 02/24/16 00:00 97.0 70 17 79/50 94 Venturi Mask 14.0 55 02/23/16 23:00 70 21 78/42 94 Venturi Mask 14.0 55 02/23/16 22:45 70 20 78/43 95 Venturi Mask 14.0 55 02/23/16 22:31 70 18 98 Venturi Mask 14.0 55 02/23/16 22:30 70 22 76/45 92 Venturi Mask 8.0 40 02/23/16 22:20 55 02/23/16 22:20 70 26 95 Venturi Mask 14.0 55 02/23/16 22:15 70 22 85/41 98 Venturi Mask 8.0 40 02/23/16 22:00 70 24 78/40 94 Venturi Mask 8.0 40 02/23/16 21:45 70 22 72/40 94 Venturi Mask 8.0 40 02/23/16 21:34 75/41 02/23/16 21:30 70 24 75/41 93 Venturi Mask 8.0 40 02/23/16 21:15 70 24 75/41 93 Venturi Mask 8.0 40 02/23/16 21:00 70 26 75/43 93 Venturi Mask 8.0 40 02/23/16 20:45 70 26 83/41 93 Venturi Mask 8.0 40 02/23/16 20:30 70 24 82/42 93 Venturi Mask 8.0 40 02/23/16 20:15 70 19 82/46 93 Venturi Mask 8.0 40 02/23/16 20:15 70 20 82/46 93 Venturi Mask 8.0 40 02/23/16 20:00 70 02/23/16 20:00 97.8 70 20 82/46 93 Venturi Mask 8.0 40 02/23/16 20:00 97.9 70 20 82/46 93 Venturi Mask 8.0 40 02/23/16 19:45 70 20 82/44 93 Venturi Mask 8.0 40 02/23/16 19:45 70 20 82/46 93 Venturi Mask 8.0 40 02/23/16 19:30 70 20 85/44 93 Venturi Mask 8.0 40 02/23/16 19:25 70 25 95 Venturi Mask 8.0 40 02/23/16 19:15 71 20 87/50 93 Venturi Mask 8.0 40 02/23/16 19:15 70 20 83/46 92 Venturi Mask 8.0 40 02/23/16 19:15 40 02/23/16 19:14 Venturi Mask 8.0 40 02/23/16 19:14 70 26 93 Venturi Mask 8.0 40 02/23/16 19:14 93 Venturi Mask 8.0 40 02/23/16 19:00 70 22 82/44 92 Venturi Mask 8.0 40 02/23/16 19:00 70 20 83/46 92 Venturi Mask 8.0 40 02/23/16 18:45 70 20 79/46 92 Venturi Mask 8.0 40 02/23/16 18:45 71 20 90/42 92 Venturi Mask 8.0 40 02/23/16 18:30 71 20 92/44 92 Venturi Mask 8.0 40 02/23/16 18:15 70 22 80/43 95 Venturi Mask 8.0 40 02/23/16 18:00 70 22 84/44 95 Venturi Mask 8.0 40 02/23/16 17:45 70 18 86/62 97 Venturi Mask 8.0 40 02/23/16 17:30 70 20 82/51 90 Venturi Mask 8.0 40 02/23/16 17:30 70 21 82/54 92 Venturi Mask 8.0 40 02/23/16 17:15 70 22 81/43 92 Venturi Mask 8.0 40 02/23/16 17:00 71 22 87/42 92 Venturi Mask 8.0 40 02/23/16 16:45 71 22 82/45 94 Venturi Mask 6.0 35 02/23/16 16:30 70 22 102/54 94 Venturi Mask 6.0 35 02/23/16 16:15 70 22 92/46 94 Venturi Mask 6.0 35 1/5/17 16:00 70 20 84/52 93 Venturi Mask 6.0 35 02/23/16 16:00 72 02/23/16 15:45 70 20 96/49 93 Venturi Mask 6.0 35 02/23/16 15:30 98.1 71 22 89/42 95 Venturi Mask 6.0 35 02/23/16 15:15 70 99/53 Venturi Mask 35 02/23/16 15:14 70 20 93 Venturi Mask 6.0 35 02/23/16 15:04 35 02/23/16 15:03 70 20 92 Venturi Mask 6.0 35 02/23/16 15:00 70 99/39 Venturi Mask 35 02/23/16 15:00 99/39 02/23/16 14:45 70 99/37 Venturi Mask 35 02/23/16 14:30 70 98/40 Venturi Mask 35 02/23/16 14:15 70 91/28 Bi-pap 35 Intake and Output 02/23/16 02/24/16 19:00 07:00 Intake Total 1027.71 ml 1249.45 ml Output Total 1505 ml 21 ml Balance -477.29 ml 1228.45 ml Intake IV Total 1027.71 ml 1249.45 ml Output Urine Total 5 ml 21 ml Hemodialysis UF 1500 ml Laboratory Tests 02/24/16 05:20: White Blood Count 9.5, Red Blood Count 3.63L, Hemoglobin 10.5L, Hematocrit 35.8L , Mean Corpuscular Volume 98, Mean Corpuscular Hemoglobin 28.8, Mean Corpuscular Hemoglobin Concent 29.2L, Red Cell Distribution Width 24.2H, Platelet Count 23L, Mean Platelet Volume 9.9, Neutrophils (%) (Auto) , Lymphocytes (%) (Auto) , Monocytes (%) (Auto) , Eosinophils (%) (Auto) , Basophils (%) (Auto) , Differential Total Cells Counted 100, Neutrophils % ( Manual) 75, Lymphocytes % (Manual) 5L, Monocytes % (Manual) 7, Eosinophils % ( Manual) 12H, Basophils % (Manual) 0, Band Neutrophils 1, Platelet Estimate DecreasedL, Platelet Morphology Normal, Hypochromasia 1+, Anisocytosis 2+, Macrocytosis 1+, [place] Cells 1+, Sodium Level 134L, Potassium Level 3.7, Chloride Level 96L, Carbon Dioxide Level 26, Anion Gap 12, Blood Urea Nitrogen 13, Creatinine 2.1H, Estimat Glomerular Filtration Rate , Glucose Level 107H, Calcium Level 8.3L, Phosphorus Level 4.7, Total Bilirubin 1.7H, Direct Bilirubin 0.9H, Aspartate Amino Transf (AST/SGOT) 47H, Alanine Aminotransferase (ALT/SGPT) 11, Alkaline Phosphatase 188H, Total Protein 6.5L, Albumin 2.9L, Globulin 3.7, Albumin/Globulin Ratio 0.7L, Random Vancomycin Level 11.3 Height (Feet): 5 Height (Inches): 4.00 Weight (Pounds): 145 General Appearance: lethargic EENT: normal ENT inspection Neck: normal alignment Cardiovascular: regular rhythm Respiratory/Chest: accessory muscle use, rhonchi - bilaterally Abdomen: non tender Extremities: moderate edema Neurologic: unresponsive ARNALDO MARTÍNEZ Feb 24, 2016 14:03
[2016-02-24] MEDS ORDERED: Glycopyrrolate 0.2mg/ml 1ml Vial IV PRN (15:45)
[2016-02-24] MEDS ORDERED: Rate Change Narcotic Drip MISC PRN (15:45)
[2016-02-24] MEDS ORDERED: Artificial Tears 1.4% Op Soln BOTH EYES PRN (15:45)
[2016-02-24] MEDS ORDERED: Morphine Sulfate 4mg/ml Inj SUBQ PRN (15:45)
[2016-02-24] MEDS ORDERED: Haloperidol 5mg/ml Inj IM PRN (15:45)
[2016-02-24] MEDS ORDERED: PCA Morphine 1mg/ml 30 ML IV PRN (15:45)
[2016-02-24] MEDS ORDERED: Morphine Sulfate 10mg/ml Inj IVP ONE (16:30)
[2016-02-24] MEDS ORDERED: NS 275ml ONE ×2 (21:59)
[2016-02-24] MEDS ORDERED: Tubing IV Secondary IV ONE (21:59)
[2016-02-24] MEDS ORDERED: D5W 550ml IV ONE (21:59)
[2016-02-24] MEDS ORDERED: Narcotic Shift Volume MISC SCH (23:00)
--- NOTE | 2016-02-25 10:21 | Discharge Summary ---
Discharge Summary Hospital Course Date of Admission Feb 20, 2016 at 14:00 Date of Discharge Feb 24, 2016 at 22:00 Admitting Diagnosis hypoxia HPI Nathan Morris is a 75 year old male who was admitted on Feb 20, 2016 at 14:00 for Hypoxia Consultations Tomas/Donnell Mcnamara Hospital Course Pt admitted to ICU intubated for ventilatory support for acute hypoxic respiratory failure. Pt self extubated on hospital day #1, and was placed on venturi mask Dr. Marin of pulm crit conslted. Dr. Keita of cards c/s'd cont atc duo nebs Zosyn, vanc and azithromycin, HCAP v CAP Levophed for pressure support Dr. Mcnamara of Nephrology c/s'd; resumed HD cont home meds held eliquis and pharm dvt ppx; scd only DIC panel--D dimer high Discussion held with daughter regarding GOC and pt was transitioned to comfort measures, Levophed was discontinued and Morphine gtt initiated. Time of : 2200, 02/24/16 Cause of : Ischemic Cardiomyopathy, c/b ESRD, and respiratory failure Discharge Discharge Disposition Patient was discharged to Discharge Diagnoses: (1) CAD (coronary artery disease) (2) Ischemic cardiomyopathy (3) COPD (chronic obstructive pulmonary disease) (4) PVD (peripheral vascular disease) (5) Encephalopathy (6) Thrombocytopenia (7) A-fib (8) HTN (hypertension) (9) DM type 2 (diabetes mellitus, type 2) (10) HLD (hyperlipidemia) (11) Hypoxia (12) Septic shock (13) Coagulopathy (14) Sepsis (15) Presence of biventricular AICD Bran Gomez M.D. Feb 25, 2016 10:21
--- NOTE | 2016-02-26 10:29 | Diagnostic Imaging Report ---
Indication: DYSPNEA Technique: One view of the chest Comparison: 02/23/2016 Findings: Less optimal inspiration currently. The heart is enlarged. Again demonstrated is bilateral diffuse interstitial and alveolar infiltrates versus edema, stable or minimally improved. Small bilateral pleural effusions are likely Left chest biventricular AICD, right jugular central venous catheter, right jugular tunneled dialysis catheter are all again noted. Impression: Diffuse bilateral interstitial and irregular parenchymal disease, infiltrates versus edema, stable or minimally improved over one day Other findings as described
--- NOTE | 2016-02-26 10:31 | Diagnostic Imaging Report ---
Indication: CHF 75-year-old male. Technique: 4.9 mCi of technetium 99 MAA was injected intravenously. 8 projection imaging of the lungs performed. Findings: Patchy perfusion noted throughout the lungs. Findings are nonspecific. Pulmonary emboli not excluded. Consider evaluation with CTA. Impression: Nonspecific, limited examination for PE. Perfusion only imaging. Pulmonary embolus not excluded. Consider CTA for further evaluation. Note: Ventilation could not be performed as the patient requires to be on high volume oxygen.
--- NOTE | 2016-02-26 10:31 | Diagnostic Imaging Report ---
Indication: Dyspnea Comparison: 02/20/2016 A single view chest radiograph was obtained. Findings: Moderate vascular congestion again demonstrated. Tubes and lines are stable. Patient has been extubated. Heart is enlarged and stable. Impression: CHF. Marginal improvement since the prior day
--- NOTE | 2016-02-26 10:31 | Diagnostic Imaging Report ---
Indication: Cough Comparison: None A single view chest radiograph was obtained. Findings: Pulmonary edema is present. There is a zero right basilar opacity which is probably a pleural effusion. Heart is enlarged. Pacemaker noted. Endotracheal tube is just above the josh. Partially imaged right dialysis catheter and central line are noted both in appropriate position. Impression: CHF. Tubes and lines satisfactory
--- NOTE | 2016-02-26 10:33 | Diagnostic Imaging Report ---
Indications: Syncope, altered mental status Technique: Continuous helical CT imaging of the brain was performed with nonionic exposure control on a Siemens sensation [address] scanner. Axial and coronal images were reconstructed at 5 mm slice thickness and interval. CTDI volume(s): 70 mGy Total DLP: 1604 mGy-cm Findings: Comparison: None July artifact degrades all images. Confluent low attenuation is present in the bilateral periventricular white matter. Ventricles, cisterns, and sulci are diffusely prominent. No evidence of mass or hemorrhage, mass effect, midline shift, hydrocephalus, or increased intracranial pressure. Bone window images are unremarkable. Visualized paranasal sinuses and mastoid air cells are clear. IMPRESSION: No evidence of acute intracranial pathology limited as described. Bilateral cerebral periventricular white matter low attenuation, nonspecific, likely chronic microvascular ischemic in nature Atrophy This correlates with preliminary report generated overnight by Dr. Marcos. The CT scanner at [facility] is accredited by the [employer] and the scans are performed using protocols designed to limit radiation exposure to as low as reasonably achievable to attain images of sufficient resolution adequate for diagnostic evaluation.
--- NOTE | 2016-02-26 10:33 | Cardiology Report ---
APPROVED REPORT EXAM: Two-dimensional and M-mode echocardiogram with Doppler and color Doppler. INDICATION Arrhythmia M-Mode DIMENSIONS IVSd0.8 (0.7-1.1cm)Left Atrium (MM)4.8 (1.6-4.0cm) LVDd5.6 (3.5-5.6cm)Aortic Root2.5 (2.0-3.7cm) PWd1.1 (0.7-1.1cm)Aortic Cusp Exc.1.7 (1.5-2.0cm) LVDs5.6 (2.5-4.0cm) PWs0.8 cm Mild left ventricular enlargement. Pattern of severe ischemic dyskinesis cardiomyopathy. Thinning and akinesis of the anterior, anteriorseptal and apex. Severe hypokinesis of normal bruno. Left ventricular ejection fraction estimated to be 10%. No evidence of left ventricular hypertrophy. Large posterior pleural effusion. Moderate bi-atrial and mild right ventricular enlargement by 2D. Focal aortic valve sclerosis with adequate cusp excursion Mildly thickened mitral valve leaflets with normal excursion. Mild mitral annulus and aortic root calcification. Pulmonic valve is well visualized. Normal tricuspid valve structure. IVC dilated at 2.5cm no physiologic collapse. RA pressure of 20mmHg. Probable pacemaker wire present in the right side chambers. A color flow and spectral Doppler study was performed and revealed: No aortic regurgitation. Mild mitral regurgitation. Left ventricular diastolic dysfunction not obtainable due to A-FIB. Moderate tricuspid regurgitation. Tricuspid systolic velocities suggests peak right ventricular systolic pressure of 54 mmHg Consistent with severe pulmonary hypertension. Pulmonic regurgitation present.
--- NOTE | 2016-02-28 22:41 | Diagnostic Imaging Report ---
APPROVED REPORT CPT Code: 81621 Present Symptoms Shortness of breath Comments: CHF Pacemaker Technically difficult study due pain( Patient has pain on compression). BILATERAL: Imaging reveals a patent deep venous system bilaterally. There is no evidence of thrombus within the femoral, popliteal or tibial segments. The greater saphenous veins are also within normal limits. Doppler indicates normal spontaneous flow within these segments.
== END 2016-02-24 22:00 | disposition expired | DRG 871 ==
LOC: EDBD 13:27 → EMR 13:59 → ICU 14:00 → EDBEDREQ 14:10 → EDBEDREQSVC 16:03 → EDBEDREQ 16:03
PROC: 05HN33Z Insertion of Infusion Device into Left Internal Jugular Vein, Percutaneous Approach (ICD-10-PCS; principal; 2016-02-20)
PROC: 3E033XZ Introduction of Vasopressor into Peripheral Vein, Percutaneous Approach (ICD-10-PCS; principal; 2016-02-20)
PROC: 5A1935Z Respiratory Ventilation, Less than 24 Consecutive Hours (ICD-10-PCS; principal; 2016-02-20)
PROC: 06HM33Z Insertion of Infusion Device into Right Femoral Vein, Percutaneous Approach (ICD-10-PCS; principal; 2016-02-20)
PROC: 0BH17EZ Insertion of Endotracheal Airway into Trachea, Via Natural or Artificial Opening (ICD-10-PCS; principal; 2016-02-20)
PROC: 5A1D60Z (ICD-10-PCS; principal; 2016-02-20)
PROC: 5A09457 Assistance with Respiratory Ventilation, 24-96 Consecutive Hours, Continuous Positive Airway Pressure (ICD-10-PCS; 2016-02-21)
DX: A41.9 Sepsis, unspecified organism (principal); J96.02 Acute respiratory failure with hypercapnia; G93.40 Encephalopathy, unspecified; J18.9 Pneumonia, unspecified organism; I13.2 Hypertensive heart and chronic kidney disease with heart failure and with stage 5 chronic kidney disease, or end stage renal disease; D68.9 Coagulation defect, unspecified; J96.01 Acute respiratory failure with hypoxia; N18.6 End stage renal disease; E11.22 Type 2 diabetes mellitus with diabetic chronic kidney disease; E11.51 Type 2 diabetes mellitus with diabetic peripheral angiopathy without gangrene; L76.02 Intraoperative hemorrhage and hematoma of skin and subcutaneous tissue complicating other procedure; J44.0 Chronic obstructive pulmonary disease with (acute) lower respiratory infection; Z51.5 Encounter for palliative care; R65.20 Severe sepsis without septic shock; I50.9 Heart failure, unspecified; Z66 Do not resuscitate; I25.10 Atherosclerotic heart disease of native coronary artery without angina pectoris; I25.5 Ischemic cardiomyopathy; D69.6 Thrombocytopenia, unspecified; K74.60 Unspecified cirrhosis of liver; E78.5 Hyperlipidemia, unspecified; Z95.810 Presence of automatic (implantable) cardiac defibrillator; Y84.6 Urinary catheterization as the cause of abnormal reaction of the patient, or of later complication, without mention of misadventure at the time of the procedure; Z99.2 Dependence on renal dialysis; Y92.230 Patient room in hospital as the place of occurrence of the external cause; Y82.8 Other medical devices associated with adverse incidents; Z79.82 Long term (current) use of aspirin; Z87.891 Personal history of nicotine dependence; Z22.322 Carrier or suspected carrier of Methicillin resistant Staphylococcus aureus; I48.0 Paroxysmal atrial fibrillation
CPT/HCPCS: 36415; 36600; 70450; 71010; 74000; 78580; 80048; 80053; 80069; 80162; 80202; 81003; 82248; 82550; 82803; 82962; 83036; 83605; 83735; 83880; 84100; 84484; 85007; 85025; 85362; 85379; 85384; 85610; 85730; 87040; 87070; 87081; 87086; 87181; 87205; 93005; 93306; 93970; 94002; 94003; 94640; 94660; 94760; J1815; J7620